=== PATIENT | female | born 1980 | race Caucasian/White ===

== ENCOUNTER 2017-11-01 10:02 | Emergency (ER) | payer OTHER ==
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
--- OUTSIDE RECORDS SUMMARY | 2017-11-01 10:05 | XMS REPORT | Clinical Summary ---
:1980 Author Organization [facility] Address [address] [place] [address] Care Team Providers Name Role Phone Solis Kwon MD Primary Care Provider Allergies Active Allergy Reactions Severity Noted Date Comments Mirtazapine Anxiety Low 01/06/2017 Trazodone Other (See Comments) Medium 01/05/2017 Causes Restless Legs Current Medications Prescription Sig. Disp. Refills Start Date End Date Status busPIRone (BUSPAR) TK 1 T PO TID 0 03/09/2016 Discontinued 5 MG tablet 7 busPIRone (BUSPAR) Take 15 mg by 0 12/27/2016 Discontinued 15 MG tablet mouth 2 (two) 7 times a day. gabapentin Take 300 mg by 0 12/27/2016 Discontinued (NEURONTIN) 300 mg mouth 3 (three) 7 capsule times a day. lithium 300 MG TAKE ONE CAPSULE 0 12/27/2016 Discontinued capsule EVERY MORNING 7 AND 2 CAPSULES AT BEDTIME melatonin 3 mg TAKE 2 CAPSUELS 0 12/27/2016 Discontinued tablet BY MOUTH AT 7 BEDTIME busPIRone (BUSPAR) Take 15 mg by Discontinued 15 MG tablet mouth 2 (two) 7 times a day. gabapentin Take 300 mg by Discontinued (NEURONTIN) 300 mg mouth 3 (three) 7 capsule times a day. lithium 300 MG Take 300 mg by Discontinued capsule mouth every 7 morning. lithium 300 MG Take 600 mg by Discontinued capsule mouth nightly. 7 melatonin 3 mg Take 6 mg by Discontinued tablet mouth nightly. 7 clonAZEPAM Take 2 mg by Discontinued (KlonoPIN) 2 MG mouth 2 (two) 7 tablet times a day. gabapentin Take 1 capsule 36 capsule 0 01/08/2017 (NEURONTIN) 300 mg (300 mg total) 7 capsuleIndications by mouth 3 : Off label for (three) times a anxiety and day for 12 days withdrawal Indications: Off label for anxiety and withdrawal. citalopram Take 1 tablet 12 tablet 0 01/08/2017 (CeleXA) 20 MG (20 mg total) by 7 tabletIndications: mouth daily for Major Depressive 12 days Disorder Indications: Major Depressive Disorder. nicotine Chew 1 each (2 100 each 0 01/08/2017 polacrilex mg total) every 7 (NICORETTE) 2 mg 2 (two) hours as gumIndications: needed for Smoking Cessation smoking cessation (CRAVINGS) for up to 30 days Indications: Smoking Cessation. Active Problems Problem Noted Date Malingering 01/08/2017 Severe benzodiazepine use disorder 01/05/2017 Encounters Date Type Specialty Care Team Description 07/27/2017 - Emergency Emergency Medicine Cherei Leon Suicidal ideation ( Primary Dx); 07/29/2017 MD Rosalinda Psychosis, unspecified psychosis type; Substance abuse 01/05/2017 - Hospital Encounter Psychiatry Boyareddigarrose, Suicidal ideation 01/08/2017 Eduard Schmid MD (Primary Dx) America Pulliam MD after 10/31/2016 Immunizations Name Dates Previously Given Next Due FLUCELVAX QUAD PF (0.5mL syringe) 01/06/2017 Social History Tobacco Use Types Packs/Day Years Used Date Current Some Day Smoker Cigarettes Tobacco Cessation: Ready to Quit: No; Counseling Given: Yes Alcohol Use Drinks/Week oz/Week Comments Yes Sex Assigned at Date Recorded Not on file Last Filed Vital Signs Vital Sign Reading Time Taken Blood Pressure 104/61 07/29/2017 1:34 PM CDT Pulse 78 07/29/2017 1:34 PM CDT Temperature 36.9 C (98.5 F) 07/29/2017 1:34 PM CDT Respiratory Rate 18 07/29/2017 1:34 PM CDT Oxygen Saturation 99% 07/29/2017 1:34 PM CDT Inhaled Oxygen Concentration - - Weight 73.6 kg (162 lb 4 oz) 01/05/2017 10:27 PM CDT Height 160 cm (5' 3") 07/27/2017 11:55 AM CDT Body Mass Index 28.74 01/05/2017 10:27 PM CDT Plan of Treatment Not on file Procedures Procedure Name Priority Date/Time Associated Comments Diagnosis ECG 12-LEAD STAT 07/27/2017 11:03 Results for this PM CDT procedure are in the results section. ESTIMATED GFR STAT 07/27/2017 1:03 Results for this PM CDT procedure are in the results section. SALICYLATE LEVEL STAT 07/27/2017 1:03 Results for this PM CDT procedure are in the results section. ACETAMINOPHEN LEVEL STAT 07/27/2017 1:03 Results for this PM CDT procedure are in the results section. HCG QUALITATIVE, SERUM STAT 07/27/2017 1:03 Results for this SCREEN PM CDT procedure are in the results section. URINE DRUGS OF ABUSE STAT 07/27/2017 1:03 Results for this SCREEN PM CDT procedure are in the results section. ALCOHOL LEVEL, BLOOD STAT 07/27/2017 1:03 Results for this PM CDT procedure are in the results section. URINALYSIS SCREEN AND STAT 07/27/2017 1:03 Results for this MICROSCOPY, WITH REFLEX PM CDT procedure are in TO CULTURE the results section. HC COMPLETE BLD COUNT STAT 07/27/2017 1:03 Results for this W/AUTO DIFF PM CDT procedure are in the results section. THYROID STIMULATING STAT 07/27/2017 1:03 Results for this HORMONE PM CDT procedure are in the results section. T4, FREE STAT 07/27/2017 1:03 Results for this PM CDT procedure are in the results section. COMPREHENSIVE METABOLIC STAT 07/27/2017 1:03 Results for this PANEL PM CDT procedure are in the results section. GRAM STAIN STAT 07/27/2017 1:03 Results for this PM CDT procedure are in the results section. URINE CULTURE STAT 07/27/2017 1:03 Results for this PM CDT procedure are in the results section. ECG ED PRELIMINARY Routine 07/27/2017 12:37 Results for this INTERPRETATION PM CDT procedure are in the results section. ECG 12-LEAD STAT 01/06/2017 9:10 Results for this AM CDT procedure are in the results section. ECG ED PRELIMINARY Routine 01/06/2017 7:48 Results for this INTERPRETATION AM CDT procedure are in the results section. LIPID PANEL STAT 01/05/2017 1:39 Results for this PM CDT procedure are in the results section. ESTIMATED GFR STAT 01/05/2017 1:39 Results for this PM CDT procedure are in the results section. SALICYLATE LEVEL STAT 01/05/2017 1:39 Results for this PM CDT procedure are in the results section. ACETAMINOPHEN LEVEL STAT 01/05/2017 1:39 Results for this PM CDT procedure are in the results section. URINE DRUGS OF ABUSE STAT 01/05/2017 1:39 Results for this SCREEN PM CDT procedure are in the results section. ALCOHOL LEVEL, BLOOD STAT 01/05/2017 1:39 Results for this PM CDT procedure are in the results section. THYROID STIMULATING STAT 01/05/2017 1:39 Results for this HORMONE PM CDT procedure are in the results section. T4, FREE STAT 01/05/2017 1:39 Results for this PM CDT procedure are in the results section. COMPREHENSIVE METABOLIC STAT 01/05/2017 1:39 Results for this PANEL PM CDT procedure are in the results section. HEMOGLOBIN A1C STAT 01/05/2017 1:38 Results for this PM CDT procedure are in the results section. HCG QUALITATIVE, SERUM STAT 01/05/2017 1:38 Results for this SCREEN PM CDT procedure are in the results section. URINALYSIS SCREEN AND STAT 01/05/2017 1:38 Results for this MICROSCOPY, WITH REFLEX PM CDT procedure are in TO CULTURE the results section. HC COMPLETE BLD COUNT STAT 01/05/2017 1:38 Results for this W/AUTO DIFF PM CDT procedure are in the results section. GRAM STAIN STAT 01/05/2017 1:36 Results for this PM CDT procedure are in the results section. URINE CULTURE STAT 01/05/2017 1:36 Results for this PM CDT procedure are in the results section. ECG 12-LEAD STAT 01/05/2017 1:00 Results for this PM CDT procedure are in the results section. after 10/31/2016 Results ECG 12 lead (07/27/2017 11:03 PM)Only the most recent of3 resultswithin the time period is included. Ventricular rate 64 [facility] Atrial rate 64 [facility] ID interval 172 [facility] QRSD interval 92 [facility] QT interval 426 [facility] QTC interval 439 [facility] P axis 1 48 [facility] QRS axis 1 64 [facility] T wave axis 23 [facility] EKG impression Normal sinus rhythm-In automated comparison with ECG of 2016 09:10,-ST no longer depressed in Inferior leads-Nonspecific T wave abnormality has replaced inverted T waves in Inferior leads-Nonspecific T wave abnormality no longer evident in [facility] Anterior leads-QT has shortened- Performing Organization Address City/State/Zipcode Phone Number [facility] [address] [place] [address] Urinalysis screen and microscopy, with reflex to culture (07/27/2017 1:03 PM) Only the most recent of2 resultswithin the time period is included. Specimen site Clean catch [facility] DEPARTMENT OF PATHOLOGY AND GENOMIC MEDICINE Color, UA Paulina [facility] DEPARTMENT OF PATHOLOGY AND GENOMIC MEDICINE Appearance, UA Clear [facility] DEPARTMENT OF PATHOLOGY AND GENOMIC MEDICINE Specific gravity, UA 1.024 1.001 - 1.030 [facility] DEPARTMENT OF PATHOLOGY AND GENOMIC MEDICINE pH, UA 5.0 5.0 - 9.0 [facility] DEPARTMENT OF PATHOLOGY AND GENOMIC MEDICINE Protein, UA Negative Negative [facility] DEPARTMENT OF PATHOLOGY AND GENOMIC MEDICINE Glucose, UA Negative Negative [facility] DEPARTMENT OF PATHOLOGY AND GENOMIC MEDICINE Ketones, UA Trace (A) Negative [facility] DEPARTMENT OF PATHOLOGY AND GENOMIC MEDICINE Bilirubin, UA Negative Negative [facility] DEPARTMENT OF PATHOLOGY AND GENOMIC MEDICINE Blood, UA Moderate (A) Negative [facility] DEPARTMENT OF PATHOLOGY AND GENOMIC MEDICINE Nitrite, UA Negative Negative [facility] DEPARTMENT OF PATHOLOGY AND GENOMIC MEDICINE Urobilinogen, UA <2.0 <2.0 E.U./dL [facility] DEPARTMENT OF PATHOLOGY AND GENOMIC MEDICINE Leukocyte esterase, UA Negative Negative [facility] DEPARTMENT OF PATHOLOGY AND GENOMIC MEDICINE Epithelial cells, UA 5 /HPF [facility] DEPARTMENT OF PATHOLOGY AND GENOMIC MEDICINE Round epithelial cells, UA <1 0 - 5 /HPF [facility] DEPARTMENT OF PATHOLOGY AND GENOMIC MEDICINE WBC, UA 2 0 - 4 /HPF [facility] DEPARTMENT OF PATHOLOGY AND GENOMIC MEDICINE RBC, UA 1 0 - 5 /HPF [facility] DEPARTMENT OF PATHOLOGY AND GENOMIC MEDICINE Bacteria, UA Moderate (A) None seen [facility] DE[facility]MENT OF PATHOLOGY AND GENOMIC MEDICINE Yeast, UA None seen [facility] DE[facility]MENT OF PATHOLOGY AND GENOMIC MEDICINE Yeast with pseudohyphae, UA None seen [facility] DE[facility]MENT OF PATHOLOGY AND GENOMIC MEDICINE Hyaline casts, UA 10-20 /LPF [facility] DEPARTMENT OF PATHOLOGY AND GENOMIC MEDICINE Specimen Urine Performing Organization Address City/State/Zipcode Phone Number [facility] DEPARTMENT OF PATHOLOGY [address] [place] [address] AND [employer] [facility] Estimated GFR (07/27/2017 1:03 PM)Only the most recent of2 resultswithin the time period is included. GFR Non Af Amer 70 mL/min/1.73 m2 [facility] DEPARTMENT OF PATHOLOGY AND GENOMIC MEDICINE GFR Af Amer 84 mL/min/1.73 m2 [facility] DEPARTMENT OF Comment: PATHOLOGY AND GENOMIC Chronic kidney disease: <60 mL/min/1.73m2 MEDICINE Kidney failure: <15 mL/min/1.73m2 The estimated GFR is calculated from the IDMS-traceable Modification of Diet in Renal Disease Equation. The accuracy of the calculation is poor when the creatinine is normal. Calculated values >90 mL/min/1.73m2 are not reported. This equation has not been validated in children (<18 years), women, the elderly (>70 years), or ethnic groups other than Caucasians and Americans. Specimen Plasma specimen Performing Organization Address City/State/Zipcode Phone Number [facility] DEPARTMENT OF PATHOLOGY [address] [place] [address] AND [employer] [facility] Urine drugs of abuse screen (07/27/2017 1:03 PM)Only the most recent of2 resultswithin the time period is included. Amphetamine screen, urine Positive (A) [facility] DE[facility]MENT OF PATHOLOGY AND GENOMIC MEDICINE Barbiturate screen, urine Negative [facility] DEPARTMENT OF PATHOLOGY AND GENOMIC MEDICINE Benzodiazepine screen, Positive (A) [facility] DEPARTMENT OF urine PATHOLOGY AND GENOMIC MEDICINE Cannabinoid screen, urine Negative [facility] DEPARTMENT OF PATHOLOGY AND GENOMIC MEDICINE Cocaine screen, urine Positive (A) [facility] DEPARTMENT OF PATHOLOGY AND GENOMIC MEDICINE Methadone metabolite Negative [facility] DEPARTMENT OF (EDDP), urine PATHOLOGY AND GENOMIC MEDICINE Opiates screen, urine Negative [facility] DEPARTMENT OF PATHOLOGY AND GENOMIC MEDICINE Phencyclidine screen, urine Negative [facility] DEPARTMENT OF PATHOLOGY AND GENOMIC MEDICINE Tricyclic screen, urine Negative [facility] DEPARTMENT OF Comment: PATHOLOGY AND GENOMIC Drug screen minimum concentration of detectability MEDICINE Lytewceihxvz5427 ng/mL Barbiturates 200 ng/mL Shptmfcppfprurw668 ng/mL Xunejmw070 ng/mL Ljtrdctel738 ng/mL Incenxh942 ng/mL Phencyclidine 25 ng/mL Ginzpbpyprra37 ng/mL Mpxomfhnqd6415 ng/mL Negative test results indicates presumptive evidence of lack of clinically significant drug concentration in this urine specimen. Positive test results are presumptive evidence of clinically significant drug concentration in this urine specimen. Testing performed for medical purposes only. Specimen Urine Performing Organization Address City/State/Zipcode Phone Number [facility] DEPARTMENT OF PATHOLOGY [address] [place] [address] AND GENOMIC MEDICINE Gram stain (07/27/2017 1:03 PM)Only the most recent of2 resultswithin the time period is included. Gram stain result No WBC's [facility] DEPARTMENT OF PATHOLOGY Few Gram positive cocci in pairs AND GENOMIC MEDICINE Comment: Specimen Information Specimen Source: Urine Specimen Site: Clean catch Specimen Urine Performing Organization Address City/[facility]/Zipcode Phone Number [facility] DEPARTMENT OF PATHOLOGY AND [address] [place] [address] GENOMIC MEDICINE CBC with platelet and differential (07/27/2017 1:03 PM)Only the most recent of2 resultswithin the time period is included. WBC 9.9 4.5 - 11.0 k/uL [facility] DEPARTMENT OF PATHOLOGY AND GENOMIC MEDICINE RBC 4.44 4.20 - 5.50 m/uL [facility] DEPARTMENT OF PATHOLOGY AND GENOMIC MEDICINE HGB 14.3 12.0 - 16.0 g/dL [facility] DEPARTMENT OF PATHOLOGY AND GENOMIC MEDICINE HCT 42.1 37.0 - 47.0 % [facility] DEPARTMENT OF PATHOLOGY AND GENOMIC MEDICINE MCV 94.8 82.0 - 100.0 fL [facility] DEPARTMENT OF PATHOLOGY AND GENOMIC MEDICINE MCH 32.2 27.0 - 34.0 pg [facility] DEPARTMENT OF PATHOLOGY AND GENOMIC MEDICINE MCHC 34.0 31.0 - 37.0 g/dL [facility] DEPARTMENT OF PATHOLOGY AND GENOMIC MEDICINE RDW - SD 41.7 37.0 - 55.0 fL [facility] DEPARTMENT OF PATHOLOGY AND GENOMIC MEDICINE MPV 9.3 6.9 - 11.0 fL [facility] DEPARTMENT OF PATHOLOGY AND GENOMIC MEDICINE Platelet count 249 150 - 400 K/uL [facility] DEPARTMENT OF PATHOLOGY AND GENOMIC MEDICINE Nucleated RBC 0.00 /100 WBC [facility] DEPARTMENT OF PATHOLOGY AND GENOMIC MEDICINE Neutrophils 68.1 39.0 - 69.0 % [facility] DEPARTMENT OF PATHOLOGY AND GENOMIC MEDICINE Lymphocytes 22.3 (L) 25.0 - 45.0 % [facility] DEPARTMENT OF PATHOLOGY AND GENOMIC MEDICINE Monocytes 7.9 0.0 - 10.0 % [facility] DEPARTMENT OF PATHOLOGY AND GENOMIC MEDICINE Eosinophils 0.8 0.0 - 5.0 % [facility] DEPARTMENT OF PATHOLOGY AND GENOMIC MEDICINE Basophils 0.6 0.0 - 1.0 % [facility] DEPARTMENT OF PATHOLOGY AND GENOMIC MEDICINE Immature granulocytes 0.3 0.0 - 1.0 % [facility] DEPARTMENT OF PATHOLOGY AND GENOMIC MEDICINE Specimen Blood Performing Organization Address City/[facility] Phone Number [facility] DEPARTMENT OF PATHOLOGY [address] [place] [address] AND [facility] Urine culture (07/27/2017 1:03 PM)Only the most recent of2 resultswithin the time period is included. Urine culture isolate Mixed Gram positive deana [facility] DEPARTMENT OF 10-4 cfu/ml PATHOLOGY AND GENOMIC (A) MEDICINE Comment: Specimen Information Specimen Source: Urine Specimen Site: Clean catch Specimen Urine Performing Organization Address [facility] Phone Number [facility] DEPARTMENT OF PATHOLOGY AND [address] [place] [id number] [place] [address] hCG qualitative, serum screen (07/27/2017 1:03 PM)Only the most recent of2 resultswithin the time period is included. hCG qualitative, serum NegativeComment: [facility] DEPARTMENT OF Sensitivity of HCG test: 25 PATHOLOGY AND GENOMIC mIU/mL MEDICINE Specimen Blood Performing Organization Address [facility] Phone Number [facility] DEPARTMENT OF PATHOLOGY [address] [place] [address] AND [facility] Thyroid stimulating hormone (07/27/2017 1:03 PM)Only the most recent of2 resultswithin the time period is included. TSH 0.87 0.27 - 4.20 uIU/mL [facility] DEPARTMENT OF PATHOLOGY AND GENOMIC MEDICINE Specimen Plasma specimen Performing Organization Address City/[facility] Phone Number [facility] DEPARTMENT OF PATHOLOGY [address] [place] [address] AND [facility] T4, free (07/27/2017 1:03 PM)Only the most recent of2 resultswithin the time period is included. T4, free 1.4 0.9 - 1.7 ng/dL [facility] DEPARTMENT OF PATHOLOGY AND GENOMIC MEDICINE Specimen Plasma specimen Performing Organization Address City/[facility] Phone Number [facility] DEPARTMENT OF PATHOLOGY [address] [place] [address] AND [facility] Alcohol level, blood (07/27/2017 1:03 PM)Only the most recent of2 resultswithin the time period is included. Alcohol None Detected mg/dL [facility] DEPARTMENT OF PATHOLOGY Comment: AND [facility] MEDICINE Normal None Detected Legal Intoxication in [place]80 mg/dL (0.08%) - Whole Blood Toxic Sqamyvctvpoal318 mg/dL (0.2%) Potentially Pmbpr421 - 500 mg/dL (0.35 - 0.5%) Alcohol percent None Detected % [facility] DEPARTMENT OF PATHOLOGY AND GENOMIC MEDICINE Specimen Plasma specimen Performing Organization Address [facility] Phone Number [facility] DEPARTMENT OF PATHOLOGY [address] [place] [address] AND [facility] Acetaminophen level (07/27/2017 1:03 PM)Only the most recent of2 resultswithin the time period is included. Acetaminophen level <8.3 10.0 - 30.0 ug/mL [facility] DEPARTMENT OF Comment: PATHOLOGY AND GENOMIC Therapeutic 10-30 ug/mL MEDICINE Possible Toxicity 150-200 ug/mL Probable Toxicity >200 ug/mL Specimen Plasma specimen Performing Organization Address [facility] Phone Number [facility] DEPARTMENT OF PATHOLOGY [address] [place] [address] AND [facility] Salicylate level (07/27/2017 1:03 PM)Only the most recent of2 resultswithin the time period is included. Salicylate <0.4 (L) 3.0 - 30.0 mg/dL [facility] DEPARTMENT OF PATHOLOGY AND GENOMIC MEDICINE Specimen Plasma specimen Performing Organization Address City/[facility] Phone Number [facility] DEPARTMENT OF PATHOLOGY [address] [place] [address] AND [facility] Comprehensive metabolic panel (07/27/2017 1:03 PM)Only the most recent of2 resultswithin the time period is included. Sodium 136 135 - 148 mEq/L [facility] DEPARTMENT OF PATHOLOGY AND GENOMIC MEDICINE Potassium 3.8 3.5 - 5.0 mEq/L [facility] DEPARTMENT OF PATHOLOGY AND GENOMIC MEDICINE Chloride 99 98 - 112 mEq/L [facility] DEPARTMENT OF PATHOLOGY AND GENOMIC MEDICINE CO2 23 (L) 24 - 31 mEq/L [facility] DEPARTMENT OF PATHOLOGY AND GENOMIC MEDICINE Anion gap 14@ANIO 7 - 15 mEq/L [facility] DEPARTMENT OF PATHOLOGY AND GENOMIC MEDICINE BUN 22 (H) 6 - 20 mg/dL [facility] DEPARTMENT OF PATHOLOGY AND GENOMIC MEDICINE Creatinine 0.9 0.5 - 0.9 mg/dL [facility] DEPARTMENT OF PATHOLOGY AND GENOMIC MEDICINE Glucose 66 65 - 99 mg/dL [facility] DEPARTMENT OF PATHOLOGY AND GENOMIC MEDICINE Calcium 9.1 8.3 - 10.2 mg/dL [facility] DEPARTMENT OF PATHOLOGY AND GENOMIC MEDICINE Protein 7.4 6.3 - 8.3 g/dL [facility] DEPARTMENT OF PATHOLOGY AND GENOMIC MEDICINE Albumin 4.2 3.5 - 5.0 g/dL [facility] DEPARTMENT OF PATHOLOGY AND GENOMIC MEDICINE A/G ratio 1.3 0.7 - 3.8 [facility] DEPARTMENT OF PATHOLOGY AND GENOMIC MEDICINE Alkaline phosphatase 52 35 - 104 U/L [facility] DEPARTMENT OF PATHOLOGY AND GENOMIC MEDICINE AST 47 (H) 10 - 35 U/L [facility] DEPARTMENT OF PATHOLOGY AND GENOMIC MEDICINE ALT 101 (H) 5 - 50 U/L [facility] DEPARTMENT OF PATHOLOGY AND GENOMIC MEDICINE Total bilirubin 0.9 0.2 - 1.2 mg/dL [facility] DEPARTMENT OF PATHOLOGY AND GENOMIC MEDICINE Specimen Plasma specimen Performing Organization Address City/State/Zipcode Phone Number [facility] DEPARTMENT OF PATHOLOGY [address] [place] [address] AND GENOMIC MEDICINE ECG ED Preliminary Interpretation - NOT AN ORDER (07/27/2017 12:37 PM)Only the most recent of2 resultswithin the time period is included. Narrative Performed At Cherie Leon MD 07/27/2017 11:07 PM ECG ED Preliminary Interpretation - Not an Order Performed by: CHERIE LEON Authorized by: CHERIE LEON ECG reviewed by ED Physician in the absence of a disability aide: yes Interpretation: Interpretation: non-specific Rate: ECG rate:64 ECG rate assessment: normal Rhythm: Rhythm: sinus rhythm Ectopy: Ectopy: none QRS: QRS axis:Normal QRS intervals:Normal Conduction: Conduction: normal ST segments: ST segments:Normal T waves: T waves: inverted Inverted:III Lipid panel (01/05/2017 1:39 PM) Cholesterol 197 <200 mg/dL [facility] DEPARTMENT OF PATHOLOGY AND GENOMIC MEDICINE Triglycerides 88 <150 mg/dL [facility] DEPARTMENT OF PATHOLOGY AND GENOMIC MEDICINE HDL cholesterol 87 >40 mg/dL [facility] DEPARTMENT OF PATHOLOGY AND GENOMIC MEDICINE LDL cholesterol 95Comment: Result <100 mg/dL [facility] DEPARTMENT OF obtained by direct LDL PATHOLOGY AND GENOMIC measurement MEDICINE Lipid panel interpretation [facility] DEPARTMENT OF Comment: PATHOLOGY AND GENOMIC Total Cholesterol (mg/dL) MEDICINE <200 Desirable [id number]-rcoi >=240High Triglycerides (mg/dL) <150 Normal [phone]-plpx 200-499High >=500Very high HDL Cholesterol (mg/dL) <40Low (male) <40Low (female) LDL Cholesterol (mg/dL) <100 Optimal 100-129Near or above optimal [phone]-cwiv 160-189High >=190Very high Risk Catergories that modify LDL goals. Risk CatergoriesLDL goal (mg/dL) CHD and CHD risk equivalent<100 (10-year risk >20%) Multiple (2+) risk factors <130 (10-year risk=<20%) 0-1 risk factors <160 (<10-year risk) Defining levels of lipids in metabolic syndrome Triglycerides>=150 mg/dL HDL Cholesterol Men<40 mg/dL Women<40 mg/dL Non-HDL cholesterol is a second target for therapy in persons with high triglycerides (>=200 mg/dL) Specimen Plasma specimen Performing Organization Address City/State/[facility] Phone Number [facility] DEPARTMENT OF PATHOLOGY AND [address] [place], [place] [id number] [facility] Hemoglobin A1c (01/05/2017 1:38 PM) Hemoglobin A1C 4.8 4.0 - 5.6 % [facility] DEPARTMENT OF PATHOLOGY Comment: AND [employer] MEDICINE HbA1c cutoffs for diagnosing diabetes: 4.0% - 5.6%=normal 5.7% - 6.4%=increased risk for diabetes (prediabetes) >=6.5%=diabetes Goals for glycemic control (ADA 2016) < 7.0%Target for non adults with diabetes. More or less stringent targets may be appropriate for individual patients. <7.5% Target for Children and adolescents with type 1 diabetes. Performing Organization Address City/State/Zipcode Phone Number [facility] DEPARTMENT OF PATHOLOGY AND [address] [place], [place] [id number] [employer] [facility] after 10/31/2016 Insurance Payer Benefit Plan / Group Subscriber ID Type Phone Address MEDICARE MEDICARE PART A AND B xxxxxxxxxx Medicare [place], [place] MEDICARE MEDICARE PART A xxxxxxxxxx Medicare [place], [place]
--- OUTSIDE RECORDS SUMMARY | 2017-11-01 10:05 | XMS REPORT | Clinical Summary ---
:1980 Author Organization [email or web address] Address [address] [place] [address] Phone Care Team Providers Name Role Phone Unavailable Primary Care Provider Unavailable Allergies Active Allergy Reactions Severity Noted Date Comments Trazodone Other (See Comments) Medium 01/05/2017 Causes Restless Legs Mirtazapine Anxiety Low 01/06/2017 Current Medications Prescription Sig. Disp. Refills Start Date End Date Status clonazePAM (KLONOPIN) 1 Take 1 mg by mouth Active MG tablet 2 (two) times daily as needed for Anxiety. citalopram (CELEXA) 40 MG Take 40 mg by mouth Active tablet daily. HYDROcodone-acetaminophen Take 1 tablet by Active (NORCO 10-325) 10-325 mg mouth every 6 (six) per tablet hours as needed for Pain. benztropine (COGENTIN) 2 Take 1 mg by mouth 09/30/2017 Active MG tablet daily . naltrexone (DEPADE) 50 mg Take 1 tablet by 09/30/2017 Active tablet mouth daily . Active Problems Not on file Encounters Date Type Specialty Care Team Description 10/15/2017 - Emergency Emergency Medicine Jessica Jordan, Suicidal ideation 10/16/2017 (Primary Dx);History of suicide attempt;History of suicidal ideation;History of anxiety after 10/31/2016 Social History Tobacco Use Types Packs/Day Years Used Date Current Some Day Smoker Cigarettes 0.5 Smokeless Tobacco: Never Used Tobacco Cessation: Ready to Quit: No; Counseling Given: Yes Alcohol Use Drinks/Week oz/Week Comments Yes EVERY ONCE IN A WHILE Sex Assigned at Date Recorded Not on file Last Filed Vital Signs Vital Sign Reading Time Taken Blood Pressure 120/78 10/16/2017 3:12 AM CDT Pulse 80 10/16/2017 3:12 AM CDT Temperature 36.7 C (98 F) 10/16/2017 3:12 AM CDT Respiratory Rate 16 10/16/2017 3:12 AM CDT Oxygen Saturation 99% 10/16/2017 3:12 AM CDT Inhaled Oxygen Concentration - - Weight 68 kg (150 lb) 10/15/2017 3:44 AM CDT Height 162.6 cm (5' 4") 10/15/2017 3:44 AM CDT Body Mass Index 25.75 10/15/2017 3:44 AM CDT Plan of Treatment Not on file Results EKG-SCANNED (10/17/2017 3:31 PM)Rapid drug screen, urine (10/15/2017 4:29 AM) Component Value Ref Range Barbiturate Screen Negative Negative Benzodiazepine Screen Positive (A) Negative Cocaine (Metab.) Screen Positive (A) Negative Methadone Screen Negative Negative Opiate Screen Positive (A) Negative Cannabinoid Screen Negative Negative Amph/Methamph Screen Positive (A) Negative Phencyclidine Screen Negative Negative Specimen Performing Laboratory Urine - Urine, Voided [facility] [address] [place] [address] Narrative DRUGCUTOFF CONC. Cocaine 300 ng/mL Bzxpoewmvrr97 ng/mL Dxylptloqycqqe724 ng/mL Barbiturate 200 ng/mL Itfcohoksepxy10 ng/mL Strnui092 ng/mL Methadone 300 ng/mL Amphetamine/ 1000 ng/mL Methamphetamine This assay provides an unconfirmed qualitative test result for the clinical management of patients in emergency situations. Chain of custody not maintained. Some [id number] medications, as well as adulterants, may cause inaccurate results. Clinical correlation should be applied. A more comprehensive drug screen or confirmation of a detected drug may be performed upon request. Urinalysis w/ Microscopic (10/15/2017 4:29 AM) Component Value Ref Range Color, UA Yellow Clarity, UA Clear Specific [place], UA >=1.030 1.001 - 1.035 pH, UA 5.5 5.0 - 8.0 Protein, UA Trace (A) Negative Glucose, UA Negative Negative Ketones, UA 15 mg/dL (A) Negative Bilirubin, UA Positive (A) Negative Blood, UA Negative Negative Nitrite, UA Negative Negative Leukocytes, UA Negative Negative Urobilinogen, UA 0.2 0.2 - 1.0 mg/dL Bacteria, UA Occasional RBC, UA <5 /HPF WBC, UA <5 /HPF SQUAMOUS EPITHELIAL <5 /HPF Specimen Source Specimen Performing Laboratory Urine - Urine, Voided [facility] [address] [place], [place] [address] CBC with platelet count + automated diff (10/15/2017 4:28 AM) Component Value Ref Range WBC 8.1 4.0 - 10.0 K/L RBC 4.40 4.00 - 5.00 M/L Hemoglobin 14.5 12.0 - 15.0 GM/DL Hematocrit 42.4 36.0 - 45.0 % MCV 96.4 82.0 - 99.0 fL MCH 32.9 27.0 - 33.0 pg MCHC 34.1 32.0 - 36.0 GM/DL RDW 13.7 10.3 - 14.2 % Platelets 266 150 - 430 K/CU MM MPV 7.8 6.5 - 10.5 fL nRBC 0 0 - 0 /100 WBC % Neutros 80 % % Lymphs 15 % % Monos 4 % % Eos 1 % % Baso 1 % # Neutros 6.50 1.80 - 8.00 K/L # Lymphs 1.20 (L) 1.48 - 4.50 K/L # Monos 0.40 0.00 - 1.30 K/L # Eos 0.10 0.00 - 0.50 K/L # Baso 0.00 0.00 - 0.20 K/L Specimen Performing Laboratory Blood - Arm, [facility] [address] [place] [phone] Troponin I (10/15/2017 4:28 AM) Component Value Ref Range Troponin I <0.03 0.00 - 0.15 ng/mL Specimen Performing Laboratory Blood - Arm, [facility] [address] [place] [id number] Narrative Troponin I (TnI) levels must be interpreted in the context of the presenting symptoms and the clinical findings. Elevated TnI levels indicate myocardial damage, but are not specific for ischemic heart disease. Elevated TnI levels are seen in patients with other cardiac conditions (including myocarditis and congestive heart failure), and slight TnI elevations occur in patients with other conditions, including sepsis, renal failure, acidosis, acute neurological disease, and persistent tachyarrhythmia. CBC with platelet count + automated diff (10/15/2017 4:28 AM) Specimen Performing Laboratory Blood Narrative The following orders were created for panel order CBC with platelet count + automated diff. Procedure Abnormality Status --------- ------ CBC with platelet count ...[[id number]]AbnormalFinal result Please view results for these tests on the individual orders. Ethanol (10/15/2017 4:28 AM) Component Value Ref Range Ethanol Lvl 65 (H) <=10 mg/dL Specimen Performing Laboratory Blood - Arm, [facility] [address] [place] [phone] Acetaminophen level (10/15/2017 4:28 AM) Component Value Ref Range Acetaminophen Level <6.0 (L) 10.0 - 30.0 ug/mL Specimen Performing Laboratory Blood - Arm, [facility] [address] [place] [phone] Salicylate level (10/15/2017 4:28 AM) Component Value Ref Range Salicylate Lvl <0.2 (L) 20.0 - 30.0 mg/dL Specimen Performing Laboratory Blood - Arm, [facility] [address] [place] [id number] Hepatic function panel (10/15/2017 4:28 AM) Component Value Ref Range Protein, Total 7.3 6.0 - 8.5 gm/dL Albumin 4.3 3.5 - 5.0 g/dL Total Bilirubin 0.6 0.1 - 1.2 mg/dL Bilirubin, Direct 0.3 0.0 - 0.4 mg/dL Alkaline Phosphatase 50 30 - 115 U/L AST 47 (H) 5 - 40 U/L ALT 43 5 - 50 U/L Specimen Performing Laboratory Blood - Arm, [facility] [address] [place] [phone] Basic Metabolic Panel (10/15/2017 4:28 AM) Component Value Ref Range Sodium 137 135 - 148 meq/L Potassium 3.6 3.6 - 5.5 meq/L Chloride 104 98 - 106 meq/L CO2 21 20 - 29 meq/L BUN 13 10 - 26 mg/dL Creatinine 0.84 0.50 - 1.20 mg/dL Glucose 85 70 - 110 mg/dL Calcium 9.5 8.5 - 10.5 mg/dL EGFR 75Comment: ESTIMATED GFR IS NOT ACCURATE mL/min/1.73 sq m CREATININE CLEARANCE IN PREDICTING GLOMERULAR FILTRATION RATE. ESTIMATED GFR IS NOT APPLICABLE FOR DIALYSIS PATIENTS. Specimen Performing Laboratory Blood - Arm, Right [facility] [address] [place] [address] after 10/31/2016
--- OUTSIDE RECORDS SUMMARY | 2017-11-01 10:14 | XMS REPORT | Continuity of Care Document ---
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 Medical Substitution Center Allowed clonidine 0.2 mg 0.2 mg, 1 tab, PO No Longer [place] 08/27[facility] [place] oral tablet Route: PO, Active 2011 Medical Drug form: Center TAB, ONCE, Start date: 08/27/11 20:09:00, Stop date: 08/27/11 20:09:00 Bactroban 2% 1 appl, Route: NASAL No Longer [facility] nasal ointment NASAL, BID, Active 2010 Medical w/applicator Start date: [place] 02/02/11 9:00:00, Duration: 30 day, Stop date: 03/03/11 17:00:00 dicloxacillin 250 mg, Route: PO No Longer [place] PO, Drug form: Active 2010 Medical CAP, Q6H, Center Start date: 02/02/11 0:00:00, Duration: 30 day, Stop date: 03/03/11 18:00:00 dicloxacillin 250 mg, 1 cap, PO Active [facility] [place] 250 mg oral PO, Q6H, [address] [facility] capsule cap, Center Substitution Allowed, CAP Bactroban 2% 1 appl, NASAL, NASAL Active [facility] nasal ointment BID, 10 ea, 2010 Medical w/applicator Substitution Center Allowed, OINT hydrocortisone 1 appl, TOP, TOP Active [facility] topical 1% cream BID, 30 gm, 2010 Medical Substitution Center Allowed, apply a thin layer to the affected areaapply a thin layer to the affected area Sodium Chloride 1,000 mL, IV No Longer Hayes [facility] 0.9% (Bolus) IV Rate: 1,[address] [facility] 1,000 mL ml/hr, Infuse Center over: 1 hr, Route: IV, Total Volume: 1,000, Bolus Dose, Priority: STAT, Start date: 02/01/11 16:45:00, Duration: 1 doses or times, Stop date: 02/01/11 17:44:00 Neurontin Substitution Active [facility] Allowed 2010 [facility] Celexa Substitution Active 02/01[facility] Allowed [address] [place] [address] Allergies, Adverse Reactions, Alerts Substance Category Reaction Severity Reaction Status Date Comments Source type Reported NKDA Assertion Drug Active allergy [place] Immunizations Immunization Date Given Site Status Last Updated Comments Source TDap (Tetanus 07/28/2016 completed [place] Toxoid, [facility] Diphtheria Toxoid And Acellular Pertussis, Absorbed) Influenza 12/29/2015 completed [facility] <Unspecified[facility] PPD 11/29/2015 completed [facility] [place] Tdap Tetanus, 11/24/2013 completed [place] diphtheria, [facility] acellular pertussis Vaccine Tdap Tetanus, 10/15/2013 completed [place] diphtheria, [facility] acellular pertussis Vaccine Results Order Name Results Value Reference Date Interpretation Comments Source Range CHEM PANEL eGFR 94 03/02 Result Comment: The eGFR is calculated using the CKD-EPI formula. In most young, healthy individuals the eGFR will be >90 mL/ min/1.73m2. The eGFR declines with age. An eGFR of 60-89 may be normal in mL/min/1. some populations, particularly the elderly, for whom the CKD-EPI formula has not been extensively validated. Use of the eGFR is not recommended in the following populations: [place] [id number] Individuals with unstable creatinine concentrations, including patients and those with serious co-morbid conditions. Patients with extremes in muscle mass or diet. The data above are obtained from the National Kidney Disease Education Program (NKDEP) which additionally recommends that when the eGFR is used in patients with extremes of body mass index for purposes of drug dosing, the eGFR should be multiplied by the estimated BMI. CHEM PANEL Calcium Lvl 8.5 mg/dL 8.5 - 10.5 03/02 [facility] CHEM PANEL Chloride Lvl 103 meq/L 95 - 109 03/02 [facility] CHEM PANEL CO2 23 meq/L 24 - 32 03/02 [facility] CHEM PANEL Creatinine 0.80 mg/dL 0.50 - 03/02 MH Lvl 1.40 [facility] CHEM PANEL BUN 13 mg/dL 7 - 03/02 [facility] CHEM PANEL Potassium 4.0 meq/L 3.5 - 5.1 03/02 MH Lvl /2016 [facility] CHEM PANEL Sodium Lvl 136 meq/L 135 - 145 03/02 [facility] CHEM PANEL Glucose Lvl 86 mg/dL 70 - 99 03/02 [facility] CHEM PANEL AGAP 14.0 meq/L 10.0 - 03/02 MH 20.0 [facility] HEMATOLOGY RBC 4.45 M/CMM 4.20 - 03/02 MH 5.40 [facility] HEMATOLOGY WBC 5.9 K/CMM 3.7 - 10.4 03/02 [facility] HEMATOLOGY Hct 42.4 % 36.0 - 03/02 MH 48.0 [facility] HEMATOLOGY Hgb 14.2 g/dL 12.0 - 03/02 MH 16.0 [facility] HEMATOLOGY RDW 13.5 % 11.5 - 03/02 MH 14.5 [facility] HEMATOLOGY Platelet 262 K/CMM 133 - 450 03/02 [facility] HEMATOLOGY MCH 32.0 pg 27.0 - 03/02 MH 31.0 [facility] HEMATOLOGY MPV 8.0 fL 7.4 - 10.4 03/02 [facility] HEMATOLOGY MCV 95.3 fL 80.0 - 03/02 MH 98.0 [facility] MCHC 33.6 g/dL 32.0 - 03/02 MH 36.0 /2017 [facility] HEMATOLOGY Lymphocytes 2.5 K/CMM 1.0 - 5.5 03/02 MH # /2017 [facility] HEMATOLOGY Eosinophils 0.3 K/CMM 0.0 - 0.5 03/02 MH # /2017 [facility] HEMATOLOGY Monocytes # 0.4 K/CMM 0.0 - 0.8 03/02 [facility] HEMATOLOGY Basophils # 0.1 K/CMM 0.0 - 0.2 03/02 /2016 [facility] HEMATOLOGY Eosinophils 4.3 % 0.0 - 4.0 03/02 /2016 [facility] HEMATOLOGY Monocytes 6.8 % 2.0 - 12.0 03/02 /2016 [facility] HEMATOLOGY Segs 45.5 % 45.0 - 03/02 MH 75.0 /2017 [facility] HEMATOLOGY Lymphocytes 41.7 % 20.0 - 03/02 40.0 /2017 [facility] HEMATOLOGY Segs-Bands # 2.7 K/CMM 1.5 - 8.1 03/02 [facility] HEMATOLOGY Basophils 1.7 % 0.0 - 1.0 03/02 [facility] URINE AND UA <=1.0 0.1 - 1.0 03/02 [facility] Urobilinogen mg/dL /2016 [facility] URINE AND UA Leuk Est Negative Negative 03/02 STOOL [facility] (03/02/17 4:28 PM) URINE AND UA Nitrite Negative Negative 03/02 STOOL [facility] (03/02/17 4:28 PM) URINE AND UA Mucus Few /LPF None Seen 03/02 [facility] /LPF [facility] URINE AND UA Bacteria Few /HPF None Seen 03/02 [facility] /HPF /2016 [facility] URINE AND UA WBC 1 /HPF 0 - 5 03/02 STOOL [facility] URINE AND UA Sq Epi Moderate Few /LPF 03/02 [facility] /LPF [facility] URINE AND UA Bili Negative Negative 03/02 STOOL [facility] *NA* (03/02/17 4:28 PM) URINE AND UA Blood Negative Negative 03/02 STOOL [facility] (03/02/17 4:28 PM) URINE AND UA Ketones Negative Negative 03/02 [facility] mg/dL mg/dL [facility] URINE AND UA Turbidity Clear Clear 03/02 STOOL [facility] (03/02/17 4:28 PM) URINE AND UA Spec Grav 1.019 <=1.030 03/02 [facility] URINE AND UA pH 6.0 5.0 - 8.0 03/02 [facility] URINE AND UA Glucose Negative Negative 03/02 [facility] mg/dL mg/dL [facility] URINE AND UA Protein Negative Negative 03/02 [facility] mg/dL mg/dL [facility] URINE AND UA Color Light Yellow Yellow 03/02 [facility] *NA* (03/02/17 4:28 PM) URINE CHEM U Preg Negative Negative 03/02 [facility] (03/02/17 4:28 PM) ED ED CT ABDOMEN PELVIS WITH CONTRAST (ED PROTOCOL): 03/02 Abdomen/Pe Abdomen/Pelv - [facility] lvis IV is IV contrast contrast only CT only CT HISTORY: Right lower quadrant pain for one day. Read by: Nahun Garcia MD Dictated Date/time: 03/02/17 18:20 Electronically Signed by: Nahun Garcia MD 03/02/17 18:24 FINAL REPORT TECHNIQUE: Multislice acquisition of the abdomen and pelvis was done with IV contrast. Oral contrast was not administered. Sagittal and coronal reconstructions were also done. FINDINGS: The appendix is normal. There is no significant diverticular disease. The gastrointestinal tract is otherwise within normal limits. The liver, gallbladder, spleen, pancreas, kidneys and adrenal glands show no significant abnormalities. The uterus and adnexal regions are unremarkable. There is a small amount of fluid in the cul-de-sac. There is no other intraperitoneal free fluid or significant retroperitoneal abnormality. There are no acute osseous abnormalities. IMPRESSION: No acute CT abnormalities in the abdomen or pelvis. SL DLAWRENCE-PC Pelvis w Pelvis w US PELVIS 03/02 - Transvag Transvag - [facility] and Pelvis Pelvis Doppler US Doppler US History: Right pelvic pain Read by: Jessie Goodson MD Dictated Date/time: 03/02/17 17:29 Electronically Signed by: Jessie Goodson MD 03/02/17 17:40 FINAL REPORT Comments: Transabdominal pelvic ultrasound performed. Transvaginal pelvic ultrasound also performed for better visualization of pelvic structures. Uterus measures 7.5 x 3.7 x 5.6 cm. Endometrium is within normal limits measuring 16 mm No uterine fibroids. Right ovary measures 3 x 2.4 x 2.9 cm. A 2.8 x 2.6 cm complex cyst in the right ovary is likely a hemorrhagic cyst. Confirmation can be obtained by a 4-6 follow-up ultrasound. Left ovary is normal in size and appearance measuring 2.8 x 1.6 x 1.5 cm. Impression: A 2.8 x 2.6 cm complex cyst in the right ovary is likely a hemorrhagic cyst. Confirmation can be obtained by a 4-6 follow-up ultrasound. DRUG UDS Note See Note 10/23 [facility] (10/23/16 10:06 AM) DRUG U Amph Scr Positive Negative 10/23 [facility] *ABN* (10/23/16 10:06 AM) DRUG U Jihan Scr Negative Negative 10/23 [facility] *NA* (10/23/16 10:06 AM) DRUG U Benzodia Negative Negative 10/23 SCREEN Scr [facility] *NA* (10/23/16 10:06 AM) DRUG U Cocaine Negative Negative 10/23 SCREEN Scr [facility] *NA* (10/23/16 10:06 AM) DRUG U Cannab Scr Negative Negative 10/23 [facility] *NA* (10/23/16 10:06 AM) DRUG U Opiate Scr Positive Negative 10/23 [facility] *ABN* (10/23/16 10:06 AM) DRUG U Phencyc Negative Negative 10/23 SCREEN Scr [facility] *NA* (10/23/16 10:06 AM) URINE AND UA Color Paulina 10/23 [facility] URINE AND UA Hyal Cast 1 /LPF 0 - 2 10/23 [facility] URINE AND UA Spec Grav 1.025 <=1.030 10/23 [facility] URINE AND UA Protein Negative Negative 10/23 [facility] mg/dL mg/dL [facility] URINE AND UA pH 5.0 5.0 - 8.0 10/23 [facility] URINE AND UA Ketones Negative Negative 10/23 [facility] mg/dL mg/dL [facility] URINE AND UA Glucose Negative Negative 10/23 [facility] mg/dL mg/dL [facility] URINE AND UA Turbidity Slight Clear 10/23 [facility] *ABN* (10/23/16 10:00 AM) URINE AND UA Nitrite Negative Negative 10/23 [facility] (10/23/16 10:00 AM) URINE AND UA Leuk Est Negative Negative 10/23 STOOL [facility] (10/23/16 10:00 AM) URINE AND UA 2.0 mg/dL 0.1 - 1.0 10/23 [facility] Urobilinogen /2016 [facility] URINE AND UA RBC 1 /HPF 0 - 2 10/23 [facility] URINE AND UA Mucus Few /LPF None Seen 10/23 [facility] /LPF [facility] URINE AND UA WBC 2 /HPF 0 - 5 10/23 [facility] URINE AND UA Sq Epi Many /LPF Few /LPF 10/23 [facility] URINE AND UA Bacteria Occasional None Seen 10/23 [facility] /HPF /HPF [facility] URINE AND UA Bili Negative Negative 10/23 [facility] *NA* (10/23/16 10:00 AM) URINE AND UA Blood Negative Negative 10/23 [facility] (10/23/16 10:00 AM) URINE CHEM U Preg Negative Negative 10/23 [facility] (10/23/16 10:00 AM) CHEM PANEL eGFR 100 10/23 Result Comment: The eGFR is calculated using the CKD-EPI formula. In most young, healthy individuals the eGFR will be >90 mL/ min/1.73m2. The eGFR declines with age. An eGFR of 60-89 may be normal in mL/min/1. some populations, particularly the elderly, for whom the CKD-EPI formula has not been extensively validated. Use of the eGFR is not recommended in the following populations: [facility] 3m2 Individuals with unstable creatinine concentrations, including patients and those with serious co-morbid conditions. Patients with extremes in muscle mass or diet. The data above are obtained from the National Kidney Disease Education Program (NKDEP) which additionally recommends that when the eGFR is used in patients with extremes of body mass index for purposes of drug dosing, the eGFR should be multiplied by the estimated BMI. CHEM PANEL ALT 90 unit/L 0 - 65 10/23 [facility] CHEM PANEL AST 29 unit/L 0 - 37 10/23 [facility] CHEM PANEL Albumin Lvl 3.8 g/dL 3.5 - 5.0 10/23 [facility] CHEM PANEL Total 6.9 g/dL 6.4 - 8.4 10/23 [facility] CHEM PANEL Calcium Lvl 8.5 mg/dL 8.5 - 10.5 10/23 [facility] CHEM PANEL CO2 25 meq/L 24 - 32 10/23 [facility] CHEM PANEL Potassium 3.6 meq/L 3.5 - 5.1 10/23 MH Lvl /2016 [facility] CHEM PANEL Chloride Lvl 104 meq/L 95 - 109 10/23 [facility] CHEM PANEL Sodium Lvl 136 meq/L 135 - 145 10/23 [facility] CHEM PANEL Glucose Lvl 90 mg/dL 70 - 99 10/23 [facility] CHEM PANEL Creatinine 0.76 mg/dL 0.50 - 10/23 Lvl 1.40 [facility] CHEM PANEL BUN 16 mg/dL 7 - 22 10/23 [facility] CHEM PANEL Bili Total 1.1 mg/dL 0.2 - 1.3 10/23 [facility] CHEM PANEL Alk Phos 56 unit/L 39 - 136 10/23 [facility] CHEM PANEL A/G Ratio 1.2 0.7 - 1.6 10/23 [facility] CHEM PANEL Globulin 3.1 g/dL 2.7 - 4.2 10/23 [facility] CHEM PANEL B/C Ratio 21 6 - 25 10/23 [facility] CHEM PANEL AGAP 10.6 meq/L 10.0 - 10/23 20. [facility] HEMATOLOGY Lymphocytes 2.5 K/CMM 1.0 - 5.5 10/23 [facility] HEMATOLOGY Basophils 0.4 % 0.0 - 1.0 10/23 [facility] HEMATOLOGY Segs-Bands # 5.9 K/CMM 1.5 - 8.1 10/23 [facility] HEMATOLOGY Eosinophils 0.0 K/CMM 0.0 - 0.5 10/23 [facility] HEMATOLOGY Monocytes # 1.0 K/CMM 0.0 - 0.8 10/23 [facility] HEMATOLOGY Segs 62.5 % 45.0 - 10/23 75.0 [facility] HEMATOLOGY Basophils # 0.0 K/CMM 0.0 - 0.2 10/23 [facility] HEMATOLOGY Lymphocytes 26.1 % 20.0 - 10/23 40.0 [facility] HEMATOLOGY Monocytes 10.6 % 2.0 - 12.0 10/23 [facility] HEMATOLOGY Eosinophils 0.4 % 0.0 - 4.0 10/23 [facility] HEMATOLOGY Hct 40.4 % 36.0 - 10/23 MH 48.0 [facility] HEMATOLOGY RDW 12.7 % 11.5 - 10/23 MH 14. [facility] HEMATOLOGY Platelet 270 K/CMM 133 - 450 10/23 [facility] HEMATOLOGY MPV 7.4 fL 7.4 - 10.4 10/23 [facility] HEMATOLOGY MCV 93.5 fL 80.0 - 10/23 MH 98.0 [facility] HEMATOLOGY MCH 32.0 pg 27.0 - 10/23 MH 31.0 [facility] HEMATOLOGY MCHC 34.2 g/dL 32.0 - 10/23 MH 36.0 [facility] HEMATOLOGY WBC 9.5 K/CMM 3.7 - 10.4 10/23 [facility] HEMATOLOGY RBC 4.32 M/CMM 4.20 - 10/23 MH 5.40 /2016 [facility] HEMATOLOGY Hgb 13.8 g/dL 12.0 - 10/23 16.0 [facility] DRUG U Cannab Scr Negative Negative 03/15 [facility] *NA* (03/14/16 7:24 PM) DRUG U Opiate Scr Negative Negative 03/15 [facility] *NA* (03/14/16 7:24 PM) DRUG U Phencyc Negative Negative 03/15 SCREEN Scr [facility] *NA* (03/14/16 7:24 PM) DRUG UDS Note See Note 03/15 [facility] (03/14/16 7:24 PM) DRUG U Cocaine Positive Negative 03/15 SCREEN Scr [facility] *ABN* (03/14/16 7:24 PM) DRUG U Amph Scr Negative Negative 03/15 [facility] *NA* (03/14/16 7:24 PM) DRUG U Jihan Scr Negative Negative 03/15 SCREEN [facility] *NA* (03/14/16 7:24 PM) DRUG U Benzodia Positive Negative 03/15 SCREEN Scr [facility] *ABN* (03/14/16 7:24 PM) URINE AND UA Color Paulina 03/15 STOOL [facility] URINE AND UA Sq Epi None Seen 03/15 STOOL [facility] URINE AND UA Mucus Few /LPF None Seen 03/15 [facility] /LPF /2016 [facility] URINE AND UA Leuk Est Trace Negative 03/15 STOOL [facility] *ABN* (03/14/16 7:24 PM) URINE AND UA Nitrite Negative Negative 03/15 STOOL [facility] (03/14/16 7:24 PM) URINE AND UA Glucose Negative Negative 03/15 [facility] mg/dL mg/dL [facility] URINE AND UA Protein 30 mg/dL Negative 03/15 [facility] mg/dL [facility] URINE AND UA Ketones Negative Negative 03/15 [facility] mg/dL mg/dL [facility] URINE AND UA pH 5.0 5.0 - 8.0 03/15 STOOL [facility] URINE AND UA Spec Grav 1.015 <=1.030 03/15 STOOL [facility] URINE AND UA Turbidity Moderate Clear 03/15 STOOL [facility] *ABN* (03/14/16 7:24 PM) URINE AND UA 4.0 mg/dL 0.1 - 1.0 03/15 STOOL Urobilinogen [facility] URINE AND UA Blood Negative Negative 03/15 STOOL [facility] (03/14/16 7:24 PM) URINE AND UA Bili Negative Negative 03/15 STOOL [facility] *NA* (03/14/16 7:24 PM) CHEM PANEL eGFR 95 03/14 Result Comment: The eGFR is calculated using the CKD-EPI formula. In most young, healthy individuals the eGFR will be >90 mL/ min/1.73m2. The eGFR declines with age. An eGFR of 60-89 may be normal in mL/min/1.7 some populations, particularly the elderly, for whom the CKD-EPI formula has not been extensively validated. Use of the eGFR is not recommended in the following populations: [facility] 3m2 Individuals with unstable creatinine concentrations, including patients and those with serious co-morbid conditions. Patients with extremes in muscle mass or diet. The data above are obtained from the National Kidney Disease Education Program (NKDEP) which additionally recommends that when the eGFR is used in patients with extremes of body mass index for purposes of drug dosing, the eGFR should be multiplied by the estimated BMI. CHEM PANEL Sodium Lvl 140 meq/L 135 - 145 03/14 [facility] CHEM PANEL Calcium Lvl 8.6 mg/dL 8.5 - 10.5 03/14 [facility] CHEM PANEL CO2 23 meq/L 24 - 32 03/14 [facility] CHEM PANEL BUN 5 mg/dL 7 - 22 03/14 [facility] CHEM PANEL Creatinine 0.79 mg/dL 0.50 - 03/14 MH Lvl 1.40 [facility] CHEM PANEL Potassium 3.2 meq/L 3.5 - 5.1 03/14 MH Lvl /2016 [facility] CHEM PANEL Albumin Lvl 3.3 g/dL 3.5 - 5.0 03/14 [facility] CHEM PANEL Total 6.5 g/dL 6.4 - 8.4 03/14 [facility] CHEM PANEL ALT 43 unit/L 0 - 65 03/14 [facility] CHEM PANEL Alk Phos 59 unit/L 39 - 136 03/14 [facility] CHEM PANEL Chloride Lvl 105 meq/L 95 - 109 03/14 [facility] CHEM PANEL Bili Total 0.4 mg/dL 0.2 - 1.3 03/14 [facility] CHEM PANEL Glucose Lvl 91 mg/dL 70 - 99 03/14 [facility] CHEM PANEL AST 31 unit/L 0 - 37 03/14 [facility] CHEM PANEL AGAP 15.2 meq/L 10.0 - 03/14 20.0 [facility] CHEM PANEL Globulin 3.2 g/dL 2.7 - 4.2 03/14 [facility] CHEM PANEL B/C Ratio 6 6 - 25 03/14 [facility] CHEM PANEL A/G Ratio 1.0 0.7 - 1.6 03/14 [facility] CHEM PANEL Lipase Lvl 258 unit/L 73 - 393 03/14 [facility] ENDOCRINOL S Preg Negative Negative 03/14 OG [facility] *NA* (03/14/16 5:14 PM) HEMATOLOGY RBC 4.31 M/CMM 4.20 - 03/14 5.40 [facility] HEMATOLOGY Hgb 13.8 g/dL 12.0 - 03/14 16.0 [facility] HEMATOLOGY WBC 9.8 K/CMM 3.7 - 10.4 03/14 [facility] HEMATOLOGY Platelet 312 K/CMM 133 - 450 03/14 [facility] HEMATOLOGY MPV 7.5 fL 7.4 - 10.4 03/14 [facility] HEMATOLOGY RDW 12.8 % 11.5 - 03/14 MH 14.5 /2016 [facility] MCHC 33.9 g/dL 32.0 - 03/14 MH 36.0 /2016 [facility] HEMATOLOGY MCV 94.4 fL 80.0 - 03/14 98.0 /2016 [facility] HEMATOLOGY Hct 40.7 % 36.0 - 03/14 MH 48.0 /2016 [facility] HEMATOLOGY MCH 32.0 pg 27.0 - 03/14 MH 31.0 /2016 [facility] HEMATOLOGY Basophils # 0.1 K/CMM 0.0 - 0.2 03/14 [facility] HEMATOLOGY Eosinophils 0.0 K/CMM 0.0 - 0.5 03/14 MH # /2016 [facility] HEMATOLOGY Lymphocytes 17.4 % 20.0 - 03/14 40.0 /2016 [facility] HEMATOLOGY Monocytes 4.4 % 2.0 - 12.0 03/14 [facility] HEMATOLOGY Segs 77.1 % 45.0 - 03/14 75.0 /2016 [facility] HEMATOLOGY Monocytes # 0.4 K/CMM 0.0 - 0.8 03/14 [facility] HEMATOLOGY Lymphocytes 1.7 K/CMM 1.0 - 5.5 03/14 /2016 [facility] HEMATOLOGY Segs-Bands # 7.6 K/CMM 1.5 - 8.1 03/14 [facility] Basophils 0.7 % 0.0 - 1.0 03/14 [facility] Eosinophils 0.4 % 0.0 - 4.0 03/14 [facility] CHEM PANEL Globulin 3.3 g/dL 2.7 - 4.2 01/06 [facility] CHEM PANEL A/G Ratio 1.1 0.7 - 1.6 01/06 [facility] CHEM PANEL AGAP 12.7 meq/L 10.0 - 01/06 20. [facility] CHEM PANEL B/C Ratio 11 6 - 25 01/06 [facility] CHEM PANEL Alk Phos 75 unit/L 39 - 136 01/06 [facility] CHEM PANEL ALT 55 unit/L 0 - 65 01/06 [facility] CHEM PANEL AST 53 unit/L 0 - 37 01/06 [facility] CHEM PANEL Total 6.9 g/dL 6.4 - 8.4 01/06 [facility] CHEM PANEL Albumin Lvl 3.6 g/dL 3.5 - 5.0 01/06 [facility] CHEM PANEL Bili Total 0.5 mg/dL 0.2 - 1.3 01/06 [facility] CHEM PANEL CO2 25 meq/L 24 - 32 01/06 [facility] CHEM PANEL Calcium Lvl 8.5 mg/dL 8.5 - 10.5 01/06 [facility] CHEM PANEL Chloride Lvl 105 meq/L 95 - 109 01/06 [facility] CHEM PANEL eGFR 114 01/06 Result Comment: The eGFR is calculated using the CKD-EPI formula. In most young, healthy individuals the eGFR will be >90 mL/ min/1.73m2. The eGFR declines with age. An eGFR of 60-89 may be normal in mL/min/1.7 some populations, particularly the elderly, for whom the CKD-EPI formula has not been extensively validated. Use of the eGFR is not recommended in the following populations: [facility] 3m2 Individuals with unstable creatinine concentrations, including patients and those with serious co-morbid conditions. Patients with extremes in muscle mass or diet. The data above are obtained from the National Kidney Disease Education Program (NKDEP) which additionally recommends that when the eGFR is used in patients with extremes of body mass index for purposes of drug dosing, the eGFR should be multiplied by the estimated BMI. CHEM PANEL Creatinine 0.64 mg/dL 0.50 - 01/06 Lvl 1.40 [facility] CHEM PANEL Sodium Lvl 139 meq/L 135 - 145 01/06 [facility] CHEM PANEL Glucose Lvl 90 mg/dL 70 - 99 01/06 [facility] CHEM PANEL Potassium 3.7 meq/L 3.5 - 5.1 01/06 Lv [facility] CHEM PANEL BUN 7 mg/dL 7 - 22 01/06 [facility] HEMATOLOGY Monocytes 7.2 % 2.0 - 12.0 01/06 [facility] HEMATOLOGY Eosinophils 0.9 % 0.0 - 4.0 01/06 [facility] HEMATOLOGY Basophils 1.4 % 0.0 - 1.0 01/06 [facility] HEMATOLOGY Basophils # 0.1 K/CMM 0.0 - 0.2 01/06 [facility] HEMATOLOGY Segs 61.3 % 45.0 - 10/28 [facility] 75.0 /2015 [place] HEMATOLOGY Lymphocytes 29.2 % 20.0 - 01/06 [facility] 40.0 [place] HEMATOLOGY Eosinophils 0.1 K/CMM 0.0 - 0.5 01/06 [facility] # /2015 [place] HEMATOLOGY Segs-Bands # 4.5 K/CMM 1.5 - 8.1 01/06 [facility] HEMATOLOGY Lymphocytes 2.1 K/CMM 1.0 - 5.5 01/06 [facility] # /2015 [place] HEMATOLOGY Monocytes # 0.5 K/CMM 0.0 - 0.8 01/06 [facility] [place] HEMATOLOGY MCV 92.3 fL 80.0 - 01/06 [facility] 98.0 [place] HEMATOLOGY MCH 32.2 pg 27.0 - 01/06 [facility] 31.0 [place] HEMATOLOGY RDW 13.2 % 11.5 - 01/06 [facility] 14.5 [place] HEMATOLOGY MCHC 34.9 g/dL 32.0 - 01/06 [facility] 36.0 [place] HEMATOLOGY WBC 7.3 K/CMM 3.7 - 10.4 01/06 [facility] HEMATOLOGY RBC 4.42 M/CMM 4.20 - 01/06 [facility] 5.40 /2015 [place] HEMATOLOGY Hct 40.8 % 36.0 - 01/06 [facility] 48.0 [place] HEMATOLOGY Hgb 14.2 g/dL 12.0 - 01/06 [facility] 16.0 [place] HEMATOLOGY Platelet 316 K/CMM 133 - 450 01/06 [facility] HEMATOLOGY MPV 7.2 fL 7.4 - 10.4 01/06 [facility] DRUG U Phencyc Negative Negative 01/06 [facility] SCREEN [place] *NA* (01/06/16 9:20 PM) DRUG UDS Note See Note 01/06 [facility] [place] (01/06/16 9:20 PM) DRUG U Amph Scr Negative Negative 01/06 [facility] [place] *NA* (01/06/16 9:20 PM) DRUG U Jihan Scr Negative Negative 01/06 [facility] [place] *NA* (01/06/16 9:20 PM) DRUG U Benzodia Negative Negative 01/06 [facility] S[facility] [place] *NA* (01/06/16 9:20 PM) DRUG U Cocaine Positive Negative 10/28 [facility] SCREEN Scr [place] *ABN* (01/06/16 9:20 PM) DRUG U Cannab Scr Negative Negative 01/06 [facility] [place] *NA* (01/06/16 9:20 PM) DRUG U Opiate Scr Positive Negative 01/06 [facility] [place] *ABN* (01/06/16 9:20 PM) URINE AND UA Blood Negative Negative 01/06 [facility] [place] (01/06/16 9:20 PM) URINE AND UA 1.0 EU/dL 0.1 - 1.0 01/06 [facility] Urobilinogen /2015 URINE AND UA Nitrite Negative Negative 01/06 [facility] (01/06/16 9:20 PM) URINE AND UA Leuk Est Negative Negative 01/06 [facility] (01/06/16 9:20 PM) URINE AND UA Glucose Negative Negative 01/06 [facility] mg/dL mg/dL URINE AND UA Ketones Negative Negative 01/06 [facility] mg/dL mg/dL URINE AND UA Bili Negative Negative 01/06 [facility] [place] *NA* (01/06/16 9:20 PM) URINE AND UA Turbidity Clear Clear 01/06 [facility] (01/06/16 9:20 PM) URINE AND UA Protein Negative Negative 01/06 [facility] mg/dL mg/dL URINE AND UA Spec Grav 1.015 <=1.030 01/06 [facility] URINE AND UA pH 8.0 5.0 - 8.0 01/06 [facility] URINE AND UA Color Yellow Yellow 01/06 [facility] [place] *NA* (01/06/16 9:20 PM) URINE AND UA RBC 0-2 /HPF 0 - 2 01/06 [facility] URINE AND UA Bacteria Few /HPF None Seen 01/06 [facility] /HPF URINE AND UA Mucus Rare /LPF None Seen 01/06 [facility] /LPF URINE AND UA Sq Epi Few /LPF Few /LPF 01/06 [facility] URINE AND UA WBC 0-2 /HPF None Seen 01/06 [facility] /HPF URINE CHEM U Preg Negative Negative 01/06 (01/06/16 9:20 PM) DRUG U Phencyc Negative Negative 12/01 [place] *NA* (12/01/13 5:25 AM) DRUG U Opiate Scr Positive Negative 12/01 [facility] *ABN* (12/01/13 5:25 AM) DRUG UDS Note See Note 3 12/01 3Interpretive Data: Drugs reported as positive have not been confirmed by a second method and should be used for medical purposes only. To order [facility] (12/01/13 5:25 AM) confirmation, contact laboratory. note: Below are cut-off concentrations for all urine drugs of abuse performed in the laboratory. Some drugs listed in the table may not be included in this panel. Description Cut-off concentration Amphetamine 1000 ng/mL Barbiturates 200 ng/mL Benzodiazepines 300 ng/mL Cocaine metabolites 300 ng/mL Opiates 300 ng/mL Phencyclidine 25 ng/mL Propoxyphene 300 ng/mL Marijuana metabolites 50 ng/mL Methadone 300 ng/mL Urine alcohol 20 mg/dL DRUG U Amph Scr Positive Negative 12/01 [place] *ABN* (12/01/13 5:25 AM) DRUG U Jihan Scr Negative Negative 12/01 [facility] *NA* (12/01/13 5:25 AM) DRUG U Cocaine Positive Negative 12/01 [place] *ABN* (12/01/13 5:25 AM) DRUG U Benzodia Positive Negative 12/01 [place] *ABN* (12/01/13 5:25 AM) DRUG U Cannab Scr Positive Negative 12/01 [place] *ABN* (12/01/13 5:25 AM) URINE AND UA Color DARK YELLO 12/01 ST[facility] URINE AND UA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 [facility] Temperature Oral (F) 98.4 F 03/15/2016 [facility] Respitory Rate 16 03/15/2016 [facility] Heart Rate 89 03/15/2016 [facility] Temperature Oral (F) 98.0 F 03/15/2016 [facility] Weight 63.636 03/14/2016 [facility] Respitory Rate 18 01/07/2016 [facility] Heart Rate 78 01/07/2016 [facility] Systolic (mm Hg) 118 01/07/2016 [facility] Diastolic (mm Hg) 78 01/07/2016 [facility] Temperature Oral (F) 98.0 F 01/07/2016 [facility] Heart Rate 74 01/07/2016 [facility] Respitory Rate 16 01/07/2016 [facility] Temperature Oral (F) 97.9 F 01/07/2016 [facility] Systolic (mm Hg) 148 01/07/2016 [facility] Diastolic (mm Hg) 69 01/07/2016 [facility] Heart Rate 77 01/07/2016 [facility] Systolic (mm Hg) 139 01/07/2016 [facility] Diastolic (mm Hg) 72 01/07/2016 [facility] Respitory Rate 18 01/07/2016 [facility] Temperature Oral (F) 98.5 F 01/07/2016 [facility] Weight 61.364 01/07/2016 [facility] BMI Calculated 23.22 01/07/2016 [facility] Height 162.56 cm 01/07/2016 [facility] Height 162.56 cm 07/06/2015 [facility] BMI Calculated 24.08 07/06/2015 [facility] Weight 63.636 07/06/2015 [facility] Respitory Rate 18 07/06/2015 [facility] Temperature Oral (F) 97.9 F 07/06/2015 [facility] Systolic (mm Hg) 118 07/06/2015 [facility] Diastolic (mm Hg) 83 07/06/2015 [facility] Heart Rate 89 07/06/2015 [facility] Heart Rate 74 08/04/2014 [facility] Temperature Oral (F) 98.1 F 08/04/2014 [facility] Resp[facility] Rate 18 08/04/2014 [facility] Systolic (mm Hg) 93 08/04/2014 [facility] Diastolic (mm Hg) 61 08/04/2014 [facility] Weight 63.636 08/04/2014 [facility] BMI Calculated 24.08 08/04/2014 [facility] Height 162.56 cm 08/04/2014 [facility] Respitory Rate 18 08/04/2014 [facility] Heart Rate 78 08/04/2014 [facility] Systolic (mm Hg) 92 08/04/2014 [facility] Diastolic (mm Hg) 62 08/04/2014 [facility] Diastolic (mm Hg) 82 12/01/2013 [facility] Temperature Oral (F) 97.8 F 12/01/2013 [facility] Systolic (mm Hg) 128 12/01/2013 [facility] Respitory Rate 18 12/01/2013 [facility] Diastolic (mm Hg) 96 12/01/2013 [facility] Systolic (mm Hg) 132 12/01/2013 [facility] Respitory Rate 18 12/01/2013 [facility] Respitory Rate 15 12/01/2013 [facility] Temperature Oral (F) 98.0 F 12/01/2013 [facility] Diastolic (mm Hg) 89 12/01/2013 [facility] Systolic (mm Hg) 117 12/01/2013 [facility] Weight 54.545 12/01/2013 [facility] Height 162.56 cm 12/01/2013 [facility] BMI Calculated 20.64 12/01/2013 [facility] Temperature Oral (F) 98.3 F 12/01/2013 [facility] Heart Rate 126 12/01/2013 [facility] Weight 52.273 10/18/2013 [facility] BMI Calculated 19.78 10/18/2013 [facility] Height 162.56 cm 10/18/2013 [facility] Respitory Rate 18 10/18/2013 [facility] Temperature Oral (F) 99.6 F 10/18/2013 [facility] Systolic (mm Hg) 128 10/18/2013 [facility] Diastolic (mm Hg) 93 10/18/2013 [facility] Heart Rate 89 10/18/2013 [facility] Height 162.56 cm 10/04/2013 [facility] Weight 52.273 10/04/2013 [facility] BMI Calculated 19.78 10/04/2013 [facility] Diastolic (mm Hg) 73 10/04/2013 [facility] Temperature Oral (F) 98.2 F 10/04/2013 [facility] Respitory Rate 20 10/04/2013 [facility] Heart Rate 99 10/04/2013 [facility] Systolic (mm Hg) 110 10/04/2013 [facility] Temperature Oral (F) 98.0 F 10/02/2013 [facility] Respitory Rate 18 10/02/2013 [facility] Heart Rate 87 10/02/2013 [facility] Diastolic (mm Hg) 68 10/02/2013 [facility] Systolic (mm Hg) 112 10/02/2013 [facility] Weight 54.545 10/02/2013 [facility] BMI Calculated 20.64 10/02/2013 [facility] Height 162.56 cm 10/02/2013 [facility] Respitory Rate 18 10/02/2013 [facility] Temperature Oral (F) 97.5 F 10/02/2013 [facility] Systolic (mm Hg) 113 10/02/2013 [facility] Diastolic (mm Hg) 81 10/02/2013 [facility] Heart Rate 95 10/02/2013 [facility] Height 64 09/01/2013 [facility] Weight 122 09/01/2013 [facility] Temperature Oral (F) 97.9 F 09/01/2013 [facility] Respitory Rate 16 09/01/2013 [facility] Heart Rate 84 09/01/2013 [facility] Systolic (mm Hg) 91 09/01/2013 [facility] Diastolic (mm Hg) 55 09/01/2013 [facility] Diastolic (mm Hg) 78 08/31/2013 [facility] Systolic (mm Hg) 132 08/31/2013 [facility] Respitory Rate 16 08/31/2013 [facility] Heart Rate 80 08/31/2013 [facility] Respitory Rate 18 08/31/2013 [facility] Heart Rate 99 08/31/2013 [facility] Temperature Oral (F) 98.4 F 08/31/2013 [facility] Height 162.56 cm 08/31/2013 [facility] Weight 52.273 08/31/2013 [facility] BMI Calculated 19.78 08/31/2013 [facility] Diastolic (mm Hg) 75 08/31/2013 [facility] Systolic (mm Hg) 110 08/31/2013 [facility] Systolic (mm Hg) 124 08/27/2013 [facility] Diastolic (mm Hg) 88 08/27/2013 [facility] Heart Rate 64 08/27/2013 [facility] Temperature Oral (F) 97.8 F 08/27/2013 [facility] Respitory Rate 18 08/27/2013 [facility] Diastolic (mm Hg) 83 08/27/2013 [facility] Systolic (mm Hg) 128 08/27/2013 [facility] Heart Rate 71 08/27/2013 [facility] Respitory Rate 18 08/27/2013 [facility] Temperature Oral (F) 98.6 F 08/27/2013 [facility] Systolic (mm Hg) 127 08/27/2013 [facility] Diastolic (mm Hg) 85 08/27/2013 [facility] Respitory Rate 18 08/27/2013 [facility] Heart Rate 70 08/27/2013 [facility] Temperature Oral (F) 98.4 F 08/27/2013 [facility] Height 162.56 cm 08/27/2013 [facility] Weight 54.545 08/27/2013 [facility] BMI Calculated 20.64 08/27/2013 [facility] Heart Rate 60 08/18/2013 [facility] Temperature Oral (F) 97.6 F 08/18/2013 [facility] Systolic (mm Hg) 100 08/18/2013 [facility] Respitory Rate 18 08/18/2013 [facility] Diastolic (mm Hg) 65 08/18/2013 [facility] Diastolic (mm Hg) 65 08/18/2013 [facility] Systolic (mm Hg) 103 08/18/2013 [facility] Respitory Rate 18 08/18/2013 [facility] Heart Rate 67 08/18/2013 [facility] Temperature Oral (F) 97.6 F 08/18/2013 [facility] BMI Calculated 20.64 08/18/2013 [facility] Weight 54.545 08/18/2013 [facility] Height 162.56 cm 08/18/2013 [facility] Temperature Oral (F) 98.0 F 08/18/2013 [facility] Heart Rate 76 08/18/2013 [facility] Respitory Rate 18 08/18/2013 [facility] Systolic (mm Hg) 94 08/18/2013 [facility] Diastolic (mm Hg) 60 08/18/2013 [facility] Systolic (mm Hg) 115 08/15/2013 [facility] Respitory Rate 17 08/15/2013 [facility] Temperature Oral (F) 97.5 F 08/15/2013 [facility] Heart Rate 95 08/15/2013 [facility] Diastolic (mm Hg) 75 08/15/2013 [facility] Weight 52.727 08/15/2013 [facility] BMI Calculated 19.95 08/15/2013 [facility] Height 162.56 cm 08/15/2013 [facility] Systolic (mm Hg) 118 08/15/2013 [facility] Diastolic (mm Hg) 80 08/15/2013 [facility] Heart Rate 108 08/15/2013 [facility] Respitory Rate 18 08/15/2013 [facility] Temperature Oral (F) 97.7 F 08/15/2013 [facility] Respitory Rate 18 08/12/2013 [facility] Heart Rate 87 08/12/2013 [facility] Temperature Oral (F) 98.2 F 08/12/2013 [facility] Diastolic (mm Hg) 76 08/12/2013 [facility] Systolic (mm Hg) 127 08/12/2013 [facility] Temperature Oral (F) 97.9 F 08/12/2013 [facility] Diastolic (mm Hg) 71 08/12/2013 [facility] Systolic (mm Hg) 114 08/12/2013 [facility] Heart Rate 68 08/12/2013 [facility] Respitory Rate 18 08/12/2013 [facility] Diastolic (mm Hg) 71 08/11/2013 [facility] Systolic (mm Hg) 108 08/11/2013 [facility] Respitory Rate 18 08/11/2013 [facility] Heart Rate 88 08/11/2013 [facility] Temperature Oral (F) 98.9 F 08/11/2013 [facility] Weight 52.727 08/11/2013 [facility] BMI Calculated 19.95 08/11/2013 [facility] Height 162.56 cm 08/11/2013 [facility] Temperature Oral (F) 97.6 F 08/03/2013 [facility] Diastolic (mm Hg) 81 08/03/2013 [facility] Systolic (mm Hg) 114 08/03/2013 [facility] [facility] Respitory Rate 18 08/03/2013 [facility] Heart Rate 80 08/03/2013 [facility] Respitory Rate 18 08/03/2013 [facility] Diastolic (mm Hg) 72 08/03/2013 [facility] Systolic (mm Hg) 107 08/03/2013 [facility] Heart Rate 94 08/03/2013 [facility] Temperature Oral (F) 98.0 F 08/03/2013 [facility] Height 162.56 cm 08/03/2013 [facility] BMI Calculated 20.64 08/03/2013 [facility] Weight 54.545 08/03/2013 [facility] BMI Calculated 20.64 08/03/2013 [facility] Height 162.56 cm 08/03/2013 [facility] Weight 54.545 08/03/2013 [facility] Temperature Oral (F) 98.3 F 08/03/2013 [facility] Heart Rate 84 08/03[facility] Systolic (mm Hg) 106 08/03/2013 [facility] Diastolic (mm Hg) 59 08/03/2013 [facility] Respitory Rate 18 08/03/2013 [facility] Heart Rate 85 07/31/2013 [facility] Systolic (mm Hg) 113 07/31/2013 [facility] Diastolic (mm Hg) 75 07/31/2013 [facility] Respitory Rate 16 07/31/2013 [facility] Temperature Oral (F) 97.9 F 07/31/2013 [facility] Respitory Rate 18 07/31/2013 [facility] Systolic (mm Hg) 107 07/31/2013 [facility] Heart Rate 101 07/31/2013 [facility] Temperature Oral (F) 98.5 F 07/31/2013 [facility] Diastolic (mm Hg) 67 07/31/2013 [facility] Weight 53.182 07/30/2013 [facility] Height 162.56 cm 07/30/2013 [facility] BMI Calculated 20.13 07/30/2013 [facility] Respitory Rate 18 07/30/2013 [facility] Diastolic (mm Hg) 65 07/30/2013 [facility] Systolic (mm Hg) 109 07/30/2013 [facility] Heart Rate 78 07/30/2013 [facility] Temperature Oral (F) 98.4 F 07/30/2013 [facility] Diastolic (mm Hg) 74 07/29/2013 [facility] Systolic (mm Hg) 106 07/29/2013 [facility] Temperature Oral (F) 98.8 F 07/29/2013 [facility] Heart Rate 66 07/29/2013 [facility] Respitory Rate 18 07/29/2013 [facility] Diastolic (mm Hg) 73 07/29/2013 [facility] Heart Rate 71 07/29/2013 [facility] Temperature Oral (F) 98.4 F 07/29/2013 [facility] Systolic (mm Hg) 115 07/29/2013 [facility] Respitory Rate 18 07/29/2013 [facility] Heart Rate 73 07/29/2013 [facility] Diastolic (mm Hg) 79 07/29/2013 [facility] Systolic (mm Hg) 115 07/29/2013 [facility] Temperature Oral (F) 98.4 F 07/29/2013 [facility] Respitory Rate 18 07/29/2013 [facility] Weight 53.182 07/28/2013 [facility] Height 162.56 cm 07/28/2013 [facility] BMI Calculated 20.13 07/28/2013 [facility] Respitory Rate 19 07/25/2013 [facility] Heart Rate 83 07/25/2013 [facility] Temperature Oral (F) 98.4 F 07/25/2013 [facility] Diastolic (mm Hg) 64 07/25/2013 [facility] Systolic (mm Hg) 105 07/25/2013 [facility] Respitory Rate 18 07/25/2013 [facility] Heart Rate 83 07/25/2013 [facility] Systolic (mm Hg) 112 07/25/2013 [facility] Temperature Oral (F) 98.3 F 07/25/2013 [facility] Diastolic (mm Hg) 63 07/25/2013 [facility] BMI Calculated 20.64 07/25/2013 [facility] Weight 54.545 07/25/2013 [facility] Height 162.56 cm 07/25/2013 [facility] Respitory Rate 18 07/25/2013 [facility] Temperature Oral (F) 98.6 F 07/25/2013 [facility] Diastolic (mm Hg) 68 07/25/2013 [facility] Heart Rate 101 07/25/2013 [facility] Systolic (mm Hg) 100 07/25/2013 [facility] Temperature Oral (F) 99.0 F 07/24/2013 [facility] Systolic (mm Hg) 114 07/24/2013 [facility] Diastolic (mm Hg) 76 07/24/2013 [facility] Respitory Rate 18 07/24/2013 [facility] Heart Rate 79 07/24/2013 [facility] Heart Rate 86 07/24/2013 [facility] Respitory Rate 18 07/24/2013 [facility] Diastolic (mm Hg) 80 07/24/2013 [facility] Systolic (mm Hg) 120 07/24/2013 [facility] Respitory Rate 18 07/24/2013 [facility] Diastolic (mm Hg) 72 07/24/2013 [facility] Heart Rate 84 07/24/2013 [facility] Systolic (mm Hg) 116 07/24/2013 [facility] Weight 54.545 07/24/2013 [facility] Height 162.56 cm 07/24/2013 [facility] BMI Calculated 20.64 07/24/2013 [facility] Temperature Oral (F) 99.1 F 07/24/2013 [facility] Systolic (mm Hg) 122 07/10/2013 [facility] Respitory Rate 18 07/10/2013 [facility] Heart Rate 80 07/10/2013 [facility] Temperature Oral (F) 98.7 F 07/10/2013 [facility] Diastolic (mm Hg) 77 07/10/2013 [facility] Weight 52.273 07/10/2013 [facility] Height 162.56 cm 07/10/2013 [facility] BMI Calculated 19.78 07/10/2013 [facility] Heart Rate 77 07/10/2013 [facility] Respitory Rate 18 07/10/2013 [facility] Temperature Oral (F) 99.0 F 07/10/2013 [facility] Systolic (mm Hg) 127 07/10/2013 [facility] Diastolic (mm Hg) 85 07/10/2013 [facility] Respitory Rate 18 07/08/2013 [facility] Heart Rate 89 07/08/2013 [facility] Temperature Oral (F) 98.0 F 07/08/2013 [facility] Systolic (mm Hg) 112 07/08/2013 [facility] Diastolic (mm Hg) 86 07/08/2013 [facility] Weight 52.727 07/08/2013 [facility] Height 162.56 cm 07/08/2013 [facility] BMI Calculated 19.95 07/08/2013 [facility] Systolic (mm Hg) 122 07/08/2013 [facility] Respitory Rate 20 07/08/2013 [facility] Heart Rate 99 07/08/2013 [facility] Diastolic (mm Hg) 84 07/08/2013 [facility] Temperature Oral (F) 98.3 F 07/08/2013 [facility] Diastolic (mm Hg) 78 06/30/2013 [facility] Systolic (mm Hg) 115 06/30/2013 [facility] Heart Rate 70 06/30/2013 [facility] Temperature Oral (F) 98.2 F 06/30/2013 [facility] Respitory Rate 16 06/30/2013 [facility] Weight 53.182 06/30/2013 [facility] BMI Calculated 20.13 06/30/2013 [facility] Height 162.56 cm 06/30/2013 [facility] Systolic (mm Hg) 116 06/30/2013 [facility] Diastolic (mm Hg) 74 06/30/2013 [facility] Temperature Oral (F) 98.2 F 06/30/2013 [facility] Respitory Rate 18 06/30/2013 [facility] Heart Rate 78 06/30/2013 [facility] Systolic (mm Hg) 115 2013 [facility] Diastolic (mm Hg) 70 2013 [facility] Heart Rate 90 2013 [facility] Respitory Rate 16 2013 [facility] Weight 53.182 2013 [facility] BMI Calculated 20.13 2013 [facility] Height 162.56 cm 2013 [facility] Heart Rate 91 2013 [facility] Respitory Rate 16 2013 [facility] Temperature Oral (F) 98.4 F 2013 [facility] Systolic (mm Hg) 112 2013 [facility] Diastolic (mm Hg) 76 2013 [facility] Weight 52.273 06/26/2013 [facility] Height 162.56 cm 06/26/2013 [facility] BMI Calculated 19.78 06/26/2013 [facility] Temperature Oral (F) 98.9 F 06/26/2013 [facility] Diastolic (mm Hg) 83 06/26/2013 [facility] Heart Rate 83 06/26/2013 [facility] Respitory Rate 18 06/26/2013 [facility] Systolic (mm Hg) 123 06/26/2013 [facility] Diastolic (mm Hg) 80 06/22/2013 [facility] Systolic (mm Hg) 119 06/22/2013 [facility] Respitory Rate 18 06/22/2013 [facility] Heart Rate 80 06/22/2013 [facility] Temperature Oral (F) 98.7 F 06/22/2013 [facility] Weight 51.364 06/22/2013 [facility] Heart Rate 82 06/22/2013 [facility] Respitory Rate 18 06/22/2013 [facility] Systolic (mm Hg) 123 06/22/2013 [facility] Temperature Oral (F) 98.8 F 06/22/2013 [facility] Diastolic (mm Hg) 95 06/22/2013 [facility] BMI Calculated 19.44 06/22/2013 [facility] Height 162.56 cm 06/22/2013 [facility] Respitory Rate 18 06/16/2013 [facility] Heart Rate 70 06/16/2013 [facility] Temperature Oral (F) 98.0 F 06/16/2013 [facility] Systolic (mm Hg) 110 06/16/2013 [facility] Diastolic (mm Hg) 67 06/16/2013 [facility] Temperature Oral (F) 98.0 F 06/16/2013 [facility] Height 162.56 cm 06/16/2013 [facility] Weight 52.273 06/16/2013 [facility] BMI Calculated 19.78 06/16/2013 [facility] Diastolic (mm Hg) 77 06/16/2013 [facility] Systolic (mm Hg) 108 06/16/2013 [facility] Respitory Rate 18 06/16/2013 [facility] Heart Rate 72 06/16/2013 [facility] Respitory Rate 20 06/08/2013 [facility] Systolic (mm Hg) 116 06/08/2013 [facility] Diastolic (mm Hg) 80 06/08/2013 [facility] Heart Rate 114 06/08/2013 [facility] Height 162.56 cm 06/08/2013 [facility] BMI Calculated 19.44 06/08/2013 [facility] Weight 51.364 06/08/2013 [facility] Diastolic (mm Hg) 86 06/08/2013 [facility] Systolic (mm Hg) 117 06/08/2013 [facility] Temperature Oral (F) 98.2 F 06/08/2013 [facility] Heart Rate 130 06/08/2013 [facility] Respitory Rate 20 06/08/2013 [facility] BMI Calculated 19.61 05/30/2013 [facility] Height 162.56 cm 05/30/2013 [facility] Weight 51.818 05/30/2013 [facility] Respitory Rate 16 05/30/2013 [facility] Temperature Oral (F) 98.5 F 05/30/2013 [facility] Heart Rate 92 05/30/2013 [facility] Systolic (mm Hg) 127 05/30/2013 [facility] Diastolic (mm Hg) 79 05/30/2013 [facility] Diastolic (mm Hg) 65 05/23/2013 [facility] Respitory Rate 18 05/23/2013 [facility] Heart Rate 90 05/23/2013 [facility] Systolic (mm Hg) 108 05/23/2013 [facility] Temperature Oral (F) 98.2 F 05/23/2013 [facility] Weight 53.182 05/23/2013 [facility] BMI Calculated 20.13 05/23/2013 [facility] Height 162.56 cm 05/23/2013 [facility] Systolic (mm Hg) 104 05/23/2013 [facility] Respitory Rate 16 05/23/2013 [facility] Diastolic (mm Hg) 65 05/23/2013 [facility] Heart Rate 94 05/23/2013 [facility] Temperature Oral (F) 98.0 F 05/23/2013 [facility] Temperature Oral (F) 98.2 F 12/05/2012 [facility] Systolic (mm Hg) 115 12/05/2012 [facility] Diastolic (mm Hg) 75 12/05/2012 [facility] Heart Rate 56 12/05/2012 [facility] Respitory Rate 18 12/05/2012 [facility] Height 162.56 cm 12/05/2012 [facility] Weight 59.091 12/05/2012 [facility] Respitory Rate 16 12/05/2012 [facility] Systolic (mm Hg) 114 12/05/2012 [facility] Diastolic (mm Hg) 75 12/05/2012 [facility] Heart Rate 68 12/05/2012 [facility] Temperature Oral (F) 98.2 F 12/05/2012 [facility] Diastolic (mm Hg) 71 11/05/2012 [facility] Temperature Oral (F) 98.1 F 11/05/2012 [facility] Heart Rate 85 11/05/2012 [facility] Systolic (mm Hg) 119 11/05/2012 [facility] Respitory Rate 18 11/05/2012 [facility] Temperature Oral (F) 97.1 F 11/05/2012 [facility] Respitory Rate 18 11/05/2012 [facility] Heart Rate 89 11/05/2012 [facility] Diastolic (mm Hg) 77 11/05/2012 [facility] Systolic (mm Hg) 112 11/05/2012 [facility] Height 162.56 cm 11/05/2012 [facility] Weight 60 11/05/2012 [facility] Height 162.56 cm 10/21/2012 [facility] Weight 60.909 10/21/2012 [facility] Weight 61.364 10/05/2012 [facility] Height 162.56 cm 10/05/2012 [facility] Height 162.56 cm 08/27/2011 [facility] Weight 67.727 08/27/2011 [facility] Heart Rate 66.0 02/01/2011 [facility] Systolic (mm Hg) 100.0 02/01/2011 [facility] Diastolic (mm Hg) 69.0 02/01/2011 [facility] Diastolic (mm Hg) 67.0 02/01/2011 [facility] Respitory Rate 18.0 02/01/2011 [facility] Heart Rate 71.0 02/01/2011 [facility] Systolic (mm Hg) 116.0 02/01/2011 [facility] Height 162.56 cm 02/01/2011 [facility] Weight 62.727 02/01/2011 [facility] Temperature Oral (F) 99.1 F 02/01/2011 [facility] Systolic (mm Hg) 108.0 02/01/2011 [facility] Diastolic (mm Hg) 65.0 02/01/2011 [facility] Respitory Rate 20.0 02/01/2011 [facility] Heart Rate 79.0 02/01/2011 [facility] Encounters Location Location Encounter Encounter Reason Attending ADM DC Status Source Details Type Number For Provider Date Date Visit [facility] Emergency [id number] AMY 02/01 02/01 Active [facility] /2010 [facility] Emergency [id number] OTHER [place] 08/26 08/26 Active [facility] /2011 [facility] Emergency [id number] [place] 10/05 10/05 Active [facility] /2012 [facility] Emergency [id number] AMY 10/21 10/21 Active [facility] /2012 [facility] Emergency [id number] CRUZ 11/05 11/05 Active [facility] /2012 [facility] Emergency [id number] [facility] 12/05 12/05 Active [facility] /2012 [facility] EC [id number] _MAPID: Ayesha 05/23 05/23 [facility] [id number] [facility] Takenaka /2013 [facility] [id number] Center [address] [facility] EC [id number] _MAPID: Keo 05/30 05/30 [facility] [id number] [facility] Lou /2013 [facility] [id number] Center [address] [facility] EC [id number] _MAPID: Shiv 06/07 06/08 [facility] [id number] E[facility] Radecki /2013 [facility] [id number] [address] [place] [id number] Christopher 06/16 06/16 [facility] [place] [place] [id number] Marylin 06/22 06/22 [facility] [place] [facility] [place] [id number] Christopher 06/26 06/26 [facility] [place] [facility] [place] [id number] Amy 06/28 06/28 [facility] [place] [facility] [place] [id number] Ayesha 06/30 06/30 [facility] [place] [facility] [place] [id number] Niall 07/08 07/08 [facility] [place] [facility] [place] [id number] Richard 07/10 07/10 [facility] [place] [facility] EC [id number] Negar Cristofer 07/24 07/24 [facility] [place] [id number] Sandy 07/25 07/25 [facility] Zambrano [facility] [place] [id number] Niall 07/28 07/29 [facility] [place] [facility] [place] [id number] Negar Cristofer 07/30 07/31 [facility] [place] [id number] Rickie Jarretttge 08/03 08/03 [facility] [place] [id number] Patrick Van 08/03 08/03 [facility] Meter [facility] [place] [id number] Ayesha 08/11 08/12 [facility] [place] [facility] [place] [id number] Christopher 08/15 08/15 [facility] [place] [facility] [place] [id number] Shiv 08/18 08/18 [facility] Radecki [facility] [place] [id number] Ayesha 08/27 08/27 [facility] [place] [facility] EC [id number] Chrystan 08/31 08/31 [facility] Skefos /2013 [facility] Lab Report [id number] Prasuna 10/02 10/02 [facility] Winkler MD /2013 [facility] [place] [id number] Donny Bustos 10/02 10/02 [facility] [place] [id number] Kyaw 10/04 10/04 [facility] Ranjith [facility] [place] [id number] Bautista Zavaleta 10/18 10/18 [facility] /2013 [facility] EC [id number] Bautista Zavaleta 10/19 10/19 [facility] /2013 [facility] EC [id number] Pancho 12/01 12/01 [facility] Rivas /2013 [facility] EC [id number] Ke Wolfe 08/04 08/04 [facility] [place] [id number] Alessio 07/05 07/05 [facility] [place] [facility] [id number] Tatsuo 01/06 01/06 [facility] Nicole /2015 [facility] Emergency [id number] Fred 03/14 03/15 [facility] Bundy /2016 [facility] Emergency [id number] Shiv 10/23 10/23 [facility] Bryson /2016 [facility] Emergency [id number] Pavan 03/02 03/03 [facility] Zuniga /2016 [facility] Emergency [id number] Tooth Darrius Zaidi 03/14 03/14 [facility] BT pain /2017 Health Procedures Procedure Code Date Perfomer Comments Source smoking/tobacco 14 09/01/2013 yes Medical cessation, Group patient education and counseling vaginal Pap smear [id number] 03/12/2011 Normal Medical results Group mammogram [id number] 03/12/2011 Normal Medical Bilateral Group LEEP procedure of [id number] [facility] cervix LEEP procedure of [id number] [facility] LEEP procedure of [id number] [facility] LEEP procedure of [id number] [facility]
--- OUTSIDE RECORDS SUMMARY | 2017-11-01 10:16 | XMS REPORT | CCD ---
:1980 Author Organization [facility] [place] [facility] Care Team Providers Name Role Phone Kyaw Kasper Consulting Provider Allergies, Adverse Reactions, Alerts Substance Reaction Status NKDA Active Problem List Condition Effective Dates Status Abdominal pain 02/01/2011 Active Medications Medication Instructions Start Date End Date Status clonidine 0.2 mg oral 0.2 mg, 1 tab, Route: PO, 08/27/2011 08/27/2011 Completed tablet Drug form: TAB, ONCE, Start date: 08/27/11 20:09:00, Stop date: 08/27/11 20:09:00 clonidine 0.1 mg oral 0.1 mg, PO, TID, 3 tab, 08/27/2011 Ordered tablet Substitution Allowed clonidine 0.2 mg oral 0.2 mg, PO, BID, 2 tab, 08/27/2011 Ordered tablet Substitution Allowed Vital Signs Most recent to oldest [Reference Range]: 1 Height 162.56 cm (08/27/2011 18:00:00) Weight 67.727 kg (08/27/2011 18:00:00)
--- OUTSIDE RECORDS SUMMARY | 2017-11-01 10:16 | XMS REPORT | CCD ---
:1980 Author Organization [facility] Care Team Providers Name Role Phone Kyaw Kasper Consulting Provider Allergies, Adverse Reactions, Alerts Substance Reaction Status NKDA Active Problem List Condition Effective Dates Status Abdominal pain 02/01/2011 Active Medications Medication Instructions Start Date End Date Status Zofran ODT 4 mg, 1 tab, Route: PO, Drug 10/05/2012 10/05/2012 Completed form: TABDIS, ONCE, Dosing Weight 61.364, kg, Priority: STAT, Start date: 10/05/12 9:51:00, Stop date: 10/05/12 9:51:00 [place] 10/325 oral tablet 1 tab, Route: PO, Drug Form: 10/05/2012 10/05/2012 Completed TAB, Dosing Weight 61.364, kg, ONCE, Start date: 10/05/12 9:50:00, Stop date: 10/05/12 9:50:00 [place] 5/325 oral tablet 1-2 tab, PO, Q4-6H, PRN, 15 10/05/2012 10/10/2012 Ordered tab, Pain, Substitution Allowed, Maintenance Vital Signs Most recent to oldest [Reference Range]: 1 Height 162.56 cm (10/05/2012 09:02:00) Weight 61.364 kg (10/05/2012 09:02:00) Results URINALYSIS Most recent to oldest [Reference Range]: 1 UA Turbidity [Clear] Clear (10/05/2012 09:28:00) UA Color [Yellow] Yellow *NA* (10/05/2012 09:28:00) UA pH [5.0-8.0] 6.0 (10/05/2012 09:28:00) UA Spec Grav [<=1.030] 1.025 (10/05/2012 09:28:00) UA Glucose [Negative] Negative (10/05/2012 09:28:00) UA Blood [Negative] Large *ABN* (10/05/2012 09:28:00) UA Ketones [Negative] Negative *NA* (10/05/2012 09:28:00) UA Protein [Negative] Negative (10/05/2012 09:28:00) UA Urobilinogen [0.1-1.0 EU/dL] 0.2 EU/dL (10/05/2012 09:28:00) UA Bili [Negative] Negative *NA* (10/05/2012:28:00) UA Leuk Est [Negative] Negative (10/05/2012:28:00) UA Nitrite [Negative] Negative (10/05/2012 09:28:00) UA WBC [None Seen /HPF] 0-2 /HPF (10/05/2012:28:00) UA RBC [0-2 /HPF] 21-50 /HPF *ABN* (10/05/2012:28:00) UA Bacteria [None Seen] None Seen (10/05/2012:28:00) UA Sq Epi [Few /LPF] Occasional /LPF (10/05/2012:28:00) Micro? Performed (10/05/2012 09:28:00) CHEMISTRY Most recent to oldest [Reference Range]: 1 U Preg [Negative] Negative (10/05/2012 09:28:00) Procedures Procedures Date Related Diagnosis LEEP procedure of cervix
--- OUTSIDE RECORDS SUMMARY | 2017-11-01 10:16 | XMS REPORT | CCD ---
:1980 Author Organization [facility] Care Team Providers Name Role Phone Melinda Calhoun Consulting Provider Allergies, Adverse Reactions, Alerts Substance Reaction Status NKDA Active Problem List Condition Effective Dates Status Abdominal pain 02/01/2011 Active Anxiety Active Ovarian cyst Resolved Medications Medication Instructions Start Date End Date Status ibuprofen 800 mg oral 800 mg, 1 tab, PO, Q8H, PRN, Take with food, 30 tab, Fever or Pain, Substitution Allowed 12/05/2012 12/15/2012 Ordered tablet Take with food [place] 5/325 oral tablet 1-2 tab, PO, Q4-6H, PRN, 15 12/05/2012 12/10/2012 Ordered tab, Pain, Substitution Allowed, Maintenance ibuprofen 800 mg, Route: PO, Drug 12/05/2012 12/05/2012 Completed form: TAB, ONCE, Dosing Weight 59.091, kg, Priority: STAT, Start date: 12/05/12 13:59:00, Stop date: 12/05/12 13:59:00 [place] 5/325 oral tablet 1 tab, Route: PO, Dosing Weight 59.091, kg, ONCE, Start date: 12/05/12 13:59:00, Stop date: 12/05/12 13:59:00, 12/05/2012 12/05/2012 Completed Vital Signs Most recent to oldest [Reference 1 2 Range]: Height 162.56 cm (12/05/2012 12:27:00) Temperature Oral [96.4-99.1 DegF] 98.2 DegF 98.2 DegF (12/05/2012 14:43:00) (12/05/2012 12:27:00) Systolic Blood Pressure [90-140 mmHg] 115 mmHg 114 mmHg (12/05/2012 14:43:00) (12/05/2012 12:27:00) Diastolic Blood Pressure [60-90 mmHg] 75 mmHg 75 mmHg (12/05/2012 14:43:00) (12/05/2012 12:27:00) Respiratory Rate [14-20 BRMIN] 18 BRMIN 16 BRMIN (12/05/2012 14:43:00) (12/05/2012 12:27:00) Peripheral Pulse Rate [60-100 bpm] 56 bpm 68 bpm *LOW* (12/05/2012 12:27:00) (12/05/2012 14:43:00) Weight 59.091 kg (12/05/2012 12:27:00)
--- OUTSIDE RECORDS SUMMARY | 2017-11-01 10:16 | XMS REPORT | Continuity of Care Document ---
:1980 Author Organization [facility] Care Team Providers Name Role Phone MD Peterson, Sangeetha Unavailable Unavailable Insurance Providers Payer name Policy type / Policy ID Covered constitution party ID Policy Felipe Coverage type MEDICARE [id number]: [id number] Encounters Encounter Performer Location Date Lab Report Sangeetha Winkler MD [facility] [place] Oct 02, 2013 Problems Problem Effective Dates Problem Status ANXIETY Sep 01, 2013 Active MIGRAINE - UNSPECIFIED WITHOUT MENTION OF INTRACTABLE Sep 01, 2013 Active MAJOR DEPRESSIVE DISORDER, RECURRENT EPISODE, Sep 01, 2013 Active UNSPECIFIED DEGREE INSOMNIA, CHRONIC Sep 01, 2013 Active LOW BACK PAIN Sep 01, 2013 Active Procedures Date Description Comments Mar 12, 2011 mammogram Normal Bilateral Mar 12, 2011 vaginal Pap smear results Normal Sep 01, 2013 smoking/tobacco cessation, patient education and yes counseling Medications Medication Instructions Start Date Status CLONAZEPAM 1 MG TABS 1 tab po tid Sep 01, 2013 Active CELEXA 40 MG TABS 1 po qday Sep 01, 2013 Active DOXEPIN HCL 50 MG CAPS 1 po qhs Sep 01, 2013 Active Vital Signs Date Description Test Result Sep 01, 2013 height E&M HEIGHT 64 in Sep 01, 2013 weight E&M WEIGHT 122 lb Sep 01, 2013 temperature E&M TEMPERATURE 97.9 deg f Sep 01, 2013 respiratory rate E&M RESP RATE 16 /min Sep 01, 2013 pulse rate E&M PULSE RATE 84 /min Sep 01, 2013 blood pressure, systolic BP SYSTOLIC 91 mm Hg Sep 01, 2013 blood pressure, diastolic BP DIASTOLIC 55 mm Hg Results Date Description Test Name Value Reference Interpretation Status Mar 12, 2011 vaginal Pap smear PAP SMEAR Normal null results
--- OUTSIDE RECORDS SUMMARY | 2017-11-01 10:16 | XMS REPORT | CCD ---
:1980 Author Organization [facility] Care Team Providers Name Role Phone Melinda Calhoun Consulting Provider Allergies, Adverse Reactions, Alerts Substance Reaction Status NKDA Active Problem List Condition Effective Dates Status Abdominal pain 02/01/2011 Active Anxiety Active Ovarian cyst Resolved Medications Medication Instructions Start Date End Date Status [place] 5/325 oral tablet 2 tab, Route: PO, Drug Form: 11/05/2012 11/05/2012 Completed TAB, Dosing Weight 60, kg, ONCE, STAT, Start date: 11/05/12 8:20:00, Stop date: 11/05/12 8:20:00 [place] 5/325 oral tablet 1-2 tab, PO, Q4-6H, PRN, 30 11/05/2012 11/10/2012 Ordered tab, Pain, Substitution Allowed, Maintenance Vital Signs Most recent to oldest [Reference 1 2 Range]: Height 162.56 cm (11/05/2012 08:03:00) Temperature Oral [96.4-99.1 DegF] 98.1 DegF 97.1 DegF (11/05/2012 10:19:00) (11/05/2012 08:03:00) Systolic Blood Pressure [90-140 mmHg] 119 mmHg 112 mmHg (11/05/2012 10:19:00) (11/05/2012 08:03:00) Diastolic Blood Pressure [60-90 mmHg] 71 mmHg 77 mmHg (11/05/2012 10:19:00) (11/05/2012 08:03:00) Respiratory Rate [14-20 BRMIN] 18 BRMIN 18 BRMIN (11/05/2012 10:19:00) (11/05/2012 08:03:00) Peripheral Pulse Rate [60-100 bpm] 85 bpm 89 bpm (11/05/2012 10:19:00) (11/05/2012 08:03:00) Weight 60 kg (11/05/2012 08:03:00)
--- OUTSIDE RECORDS SUMMARY | 2017-11-01 10:16 | XMS REPORT | CCD ---
:1980 Author Organization [facility] Care Team Providers Name Role Phone Leatha Aldana Consulting Provider Unavailable Becca Hayes Consulting Provider Unavailable PCP, None Consulting Provider Unavailable Alex Edge Consulting Provider Unavailable Elise Lane Consulting Provider [phone] Elsa Walter Consulting Provider Loni Tapia Consulting Provider [employer], Login Consulting Provider Unavailable Miah Hernandez Consulting Provider [phone] Clari Turner Consulting Provider Unavailable Allergies, Adverse Reactions, Alerts Substance Reaction Status NKDA ?? Active Problem List Condition Effective Dates Status Abdominal pain 02/01/2011 Active Medications Medication Instructions Start Date End Date Status dicloxacillin 250 mg oral 250 mg, 1 cap, PO, Q6H, 02/01/2011 02/11/2011 Ordered capsule 40 cap, Substitution Allowed, CAP Bactroban 2% nasal 1 appl, NASAL, BID, 10 02/01/2011 ?? Ordered ointment w/applicator ea, Substitution Allowed, OINT Neurontin Substitution Allowed 02/01/2011 ?? Ordered Celexa Substitution Allowed 02/01/2011 ?? Ordered dicloxacillin 250 mg, Route: PO, Drug 02/02/2011 02/01/2011 Canceled form: CAP, Q6H, Start date: 02/02/11 0:00:00, Duration: 30 day, Stop date: 03/03/11 18:00:00 Bactroban 2% nasal 1 appl, Route: NASAL, 02/02/2011 02/01/2011 Canceled ointment w/applicator BID, Start date: 02/02/11 9:00:00, Duration: 30 day, Stop date: 03/03/11 17:00:00 Sodium Chloride 0.9% 1,000 mL, Rate: 1,000 02/01/2011 02/01/2011 Discontinued (Bolus) IV 1,000 mL ml/hr, Infuse over: 1 hr, Route: IV, Total Volume: 1,000, Bolus Dose, Priority: STAT, Start date: 02/01/11 16:45:00, Duration: 1 doses or times, Stop date: 02/01/11 17:44:00 hydrocortisone topical 1% 1 appl, TOP, BID, 30 gm, Substitution Allowed, apply a thin layer to the affected area 02/01/2011 ?? Ordered cream apply a thin layer to the affected area Vital Signs Most recent to oldest 1 2 3 [Reference Range]: Height 162.56 cm ? (02/01/2011 14:40:00) ?? Temperature Oral 99.1 DegF ? [96.4-99.1 DegF] (02/01/2011 14:40:00) ?? Systolic Blood Pressure 100 mmHg 116 mmHg 108 mmHg [90-140 mmHg] (02/01/2011 16:39:00) ?? (02/01/2011 15:53:00) ?? (02/01/2011 14:40:00) ?? Diastolic Blood Pressure 69 mmHg 67 mmHg 65 mmHg [60-90 mmHg] (02/01/2011 16:39:00) ?? (02/01/2011 15:53:00) ?? (02/01/2011 14:40:00) ?? Respiratory Rate [14-20 18 BRMIN 20 BRMIN ?? BRMIN] (02/01/2011 15:53:00) ?? (02/01/2011 14:40:00) ?? Peripheral Pulse Rate 66 bpm 71 bpm 79 bpm [60-100 bpm] (02/01/2011 16:39:00) ?? (02/01/2011 15:53:00) ?? (02/01/2011 14:40:00) ?? Weight 62.727 kg ? (02/01/2011 14:40:00) ??
--- OUTSIDE RECORDS SUMMARY | 2017-11-01 10:16 | XMS REPORT | Summary of Care ---
:1980 Author Encounter Dates Location Diagnoses Discharge Providers Disposition 05/23/2013 - [facility] Ayesha Garvey 05/23/[address] [place] [address] Diagnosis: Painful [place], [place] [address]- , [place] tongue Reason for Visit LUMPS ON TONGUE Vital Signs Most recent to oldest [Reference 1 2 Range]: Height 162.56 cm (05/23/2013 04:02:00 [facility]) Temperature Oral [96.4-99.1 DegF] 98.2 DegF 98.0 DegF (05/23/2013 06:27:00 [facility]) (05/23/2013 04:02:00 [facility]) Systolic Blood Pressure [90-140 108 mmHg 104 mmHg mmHg] (05/23/2013 06:27:00 [facility]) (05/23/2013 04:02:00 [facility] [place]) Diastolic Blood Pressure [60-90 65 mmHg 65 mmHg mmHg] (05/23/2013 06:27:00 [facility]) (05/23/2013 04:02:00 [facility] [place]) Respiratory Rate [14-20 BRMIN] 18 BRMIN 16 BRMIN (05/23/2013 06:27:00 [facility]) (05/23/2013 04:02:00 [facility]) Peripheral Pulse Rate [60-100 90 bpm 94 bpm bpm] (05/23/2013 06:27:00 [facility]) (05/23/2013 04:02:00 [facility] [place]) Weight 53.182 kg (05/23/2013 04:02:00 [facility]) Body Mass Index 20.13 m2 (05/23/2013 04:02:00 [facility]) Problem List Condition Effective Dates Status Health Status Informant Abdominal pain(Confirmed) 02/01/2011 Active Anxiety(Confirmed) Active Hepatitis C(Confirmed) Resolved Ovarian cyst(Confirmed) Resolved Allergies, Adverse Reactions, Alerts Substance Reaction Severity Status NKDA Active Medications Medication Instructions Start Date Stop Date Status acetaminophen-hydrocodone 1 tab, Route: PO, Dosing 05/23/2013 05/23/2013 Completed 325 mg-5 mg oral tablet Weight 53.182, kg, ONCE, STAT, Start date: 05/23/13 5:51:00, Stop date: 05/23/13 5:51:00 Magic Mouth Wash 5 ml, S&SPIT, QID, Pain, # 05/23/2013 Ordered (Maalox/Carafate/Bendryl)1 180 ml, 0 Refill(s) :1:1 tramadol 50 mg oral tablet 50 mg=1 tab, PO, Q6H, Pain, 05/23/20132013 Ordered # 40 tab, 0 Refill(s) Medications Administered During Your Visit No data available for this section Immunizations No data available for this section Social History Social History Type Response Smoking Status Use: Current every day smoker. Type: Cigarettes. Tobacco smoke exposure: None. Did the Patient Smoke Cigarettes Anytime During the Last 365 Days? Yes. Cessation Counseling Provided? Yes.
--- OUTSIDE RECORDS SUMMARY | 2017-11-01 10:16 | XMS REPORT | CCD ---
:1980 Author Organization [facility] Care Team Providers Name Role Phone Naomi Walterrosette [place] Consulting Provider Allergies, Adverse Reactions, Alerts Substance Reaction Status NKDA Active Problem List Condition Effective Dates Status Abdominal pain 02/01/2011 Active Ovarian cyst Resolved Medications Medication Instructions Start Date End Date Status Motrin 600 mg, Route: PO, Drug form: TAB, ONCE, 10/21/2012 10/21/2012 Completed Dosing Weight 60.909, kg, Priority: STAT, Start date: 10/21/12 17:36:00, Stop date: 10/21/12 17:36:00 Vital Signs Most recent to oldest [Reference Range]: 1 Height 162.56 cm (10/21/2012 13:14:00) Weight 60.909 kg (10/21/2012 13:14:00) Results URINALYSIS Most recent to oldest [Reference Range]: 1 UA Turbidity [Clear] Cloudy *ABN* (10/21/2012 16:16:00) UA Color [Yellow] Yellow *NA* (10/21/2012 16:16:00) UA pH [5.0-8.0] 6.0 (10/21/2012 16:16:00) UA Spec Grav [<=1.030] 1.030 (10/21/2012 16:16:00) UA Glucose [Negative] Negative (10/21/2012 16:16:00) UA Blood [Negative] Negative (10/21/2012 16:16:00) UA Ketones [Negative] Trace *ABN* (10/21/2012 16:16:00) UA Protein [Negative] Negative (10/21/2012 16:16:00) UA Urobilinogen [0.1-1.0 EU/dL] 0.2 EU/dL (10/21/2012 16:16:00) UA Bili [Negative] Small 1 *ABN* (10/21/2012 16:16:00) UA Leuk Est [Negative] Negative (10/21/2012 16:16:00) UA Nitrite [Negative] Negative (10/21/2012 16:16:00) UA WBC [None Seen /HPF] 3-5 /HPF (10/21/2012 16:16:00) UA RBC 1-3 *NA* (10/21/2012 16:16:00) UA Bacteria [None Seen /HPF] Moderate /HPF (10/21/2012 16:16:00) UA Sq Epi [Few /LPF] Moderate /LPF *ABN* (10/21/2012 16:16:00) UA Mucus [None Seen /LPF] Many /LPF *ABN* (10/21/2012 16:16:00) Micro? Performed (10/21/2012 16:16:00) 1Result Comment: Interpret positive bilirubin results with caution. Confirmatory testing not possible due to the unavailability of reagent. Correlation with serum chemistry results recommended.CHEMISTRY Most recent to oldest [Reference Range]: 1 U Preg [Negative] Negative (10/21/2012 16:16:00)
--- OUTSIDE RECORDS SUMMARY | 2017-11-01 10:17 | XMS REPORT | Summary of Care ---
:1980 Author Encounter CLINTON Henry(MARIZA) [id number] Date(s): 07/24/13 - 07/24/[address] Discharge Diagnosis: Cellulitis of hand, right Discharge Disposition: Home Physician Attending: Negar Cleveland MD Reason for Visit POSSIBLE FX RIGHT WRIST/REFILL MEDICATION Vital Signs Most recent to oldest 1 2 3 [Reference Range]: Height 162.56 cm (07/24/13 2:59 PM) Temperature Oral [96.4-99.1 99.0 DegF 99.1 DegF DegF] (07/24/13 6:16 PM) (07/24/13 2:59 PM) Systolic Blood Pressure [90-140 114 mmHg 120 mmHg 116 mmHg mmHg] (07/24/13 6:16 PM) (07/24/13 5:20 PM) (07/24/13 4:30 PM) Diastolic Blood Pressure [60-90 76 mmHg 80 mmHg 72 mmHg mmHg] (07/24/13 6:16 PM) (07/24/13 5:20 PM) (07/24/13 4:30 PM) Respiratory Rate [14-20 BRMIN] 18 BRMIN 18 BRMIN 18 BRMIN (07/24/13 6:16 PM) (07/24/13 5:20 PM) (07/24/13 4:30 PM) Peripheral Pulse Rate [60-100 79 bpm 86 bpm 84 bpm bpm] (07/24/13 6:16 PM) (07/24/13 5:20 PM) (07/24/13 4:30 PM) Weight 54.545 kg (07/24/13 2:59 PM) Body Mass Index 20.64 m2 (07/24/13 2:59 PM) Problem List Condition Effective Dates Status Health Status Informant Abdominal pain(Confirmed) 02/01/11 Active Anxiety(Confirmed) Active Hepatitis C(Confirmed) Resolved Ovarian cyst(Confirmed) Resolved Allergies, Adverse Reactions, Alerts Substance Reaction Severity Status NKDA Active Medications Ativan 1 mg, Route: IVP, Drug form: INJ, ONCE, Dosing Weight 54.545, kg, Priority: STAT , Start date: 07/24/13 16:39:00, Stop date: 07/24/13 16:39:00 Start Date: 07/24/13 Stop Date: 07/24/13 Status: Completedclindamycin 900 mg, 6 mL, Route: IVPB, Drug form: INJ, ONCE, Dosing Weight 54.545, kg, Priority: STAT, Start date: 07/24/13 16:00:00, Stop date: 07/24/13 16:00:00 Notes: (Same As: Cleocin) Start Date: 07/24/13 Stop Date: 07/24/13 Status: Completedclindamycin 300 mg oral capsule 300 mg=1 cap, PO, Q6H, # 40 cap, 0 Refill(s) Start Date: 07/24/13 Stop Date: 08/03/13 Status: OrderedclonazePAM 1 mg oral tablet 1 mg=1 tab, PO, TID, # 3 tab, 0 Refill(s) Start Date: 07/24/13 Status: OrderedNorco 10/325 oral tablet 1-2 tab, PO, Q4-6H, Pain, # 5 tab, 0 Refill(s) Start Date: 07/24/13 Stop Date: 07/29/13 Status: OrderedNorco 10/325 oral tablet 1 tab, Route: PO, Drug Form: TAB, Dosing Weight 54.545, kg, ONCE, Start date: 17:46:00, Stop date: 07/24/13 17:46:00 Notes: Do not exceed 4gm/day of acetaminophen. (Same as: [place] 325/10) Start Date: 07/24/13 Stop Date: 07/24/13 Status: CompletedUltram 50 mg oral tablet 50 mg, 1 tab, Route: PO, Drug form: TAB, ONCE, Dosing Weight 54.545, kg, Priority: STAT, Start date:07/24/13 15:59:00, Stop date: 07/24/13 15:59:00 Notes: . (Same As: Ultram) Start Date: 07/24/13 Stop Date: 07/24/13 Status: Completed Results ELECTROLYTES Most recent to oldest [Reference Range]: 1 Sodium Lvl [135-145 mEq/L] 141 mEq/L (07/24/13 4:23 PM) Potassium Lvl [3.5-5.1 mEq/L] 3.9 mEq/L (07/24/13 4:23 PM) Chloride Lvl [95-109 mEq/L] 104 mEq/L (07/24/13 4:23 PM) CO2 [24-32 mEq/L] 28 mEq/L (07/24/13 4:23 PM) AGAP [10.0-20.0 mEq/L] 12.9 mEq/L (07/24/13 4:23 PM) CHEM PANEL Most recent to oldest [Reference Range]: 1 Creatinine Lvl [0.5-1.4 mg/dL] 0.8 mg/dL (07/24/13 4:23 PM) eGFR 96 mL/min/1.73m2 1 *NA* (07/24/13 4:23 PM) BUN [7-22 mg/dL] 13 mg/dL (07/24/13 4:23 PM) Glucose Lvl [70-99 mg/dL] 78 mg/dL 2 (07/24/13 4:23 PM) Calcium Lvl [8.5-10.5 mg/dL] 8.9 mg/dL (07/24/13 4:23 PM) 1Result Comment: The eGFR is calculated using the CKD-EPI formula. In most young , healthy individualsthe eGFR will be >90 mL/min/1.73m2. The eGFR declines with age. An eGFR of 60-89 may be normal in some populations, particularly the elderly, for whom the CKD-EPI formula has not been extensively validated. Use of the eGFR is not recommended in the following populations: Individuals with unstable creatinine concentrations, including patients and those with serious co-morbid conditions. Patients with extremes in muscle mass or diet. The data above are obtained from the National Kidney Disease Education Program ( NKDEP) which additionally recommends that when the eGFR is used in patients with extremes of body mass index for purposesof drug dosing, the eGFR should be multiplied by the estimated BMI.2Interpretive Data: Adult reference range values reflect the clinical guidelines of the [place] [employer].HEMATOLOGY Most recent to oldest [Reference Range]: 1 WBC [3.7-10.4 K/CMM] 10.2 K/CMM (07/24/13 4:33 PM) RBC [4.20-5.40 M/CMM] 4.14 M/CMM *LOW* (07/24/13 4:33 PM) Hgb [12.0-16.0 g/dL] 13.4 g/dL (07/24/13 4:33 PM) Hct [36.0-48.0 %] 39.0 % (07/24/13 4:33 PM) MCV [81.0-99.0 fL] 94.1 fL (07/24/13 4:33 PM) MCH [27.0-31.0 pg] 32.4 pg *HI* (07/24/13 4:33 PM) MCHC [32.0-36.0 g/dL] 34.4 g/dL (07/24/13 4:33 PM) RDW [11.5-14.5 %] 12.0 % (07/24/13 4:33 PM) Platelet [133-450 K/CMM] 250 K/CMM (07/24/13 4:33 PM) MPV [7.4-10.4 fL] 7.7 fL (07/24/13 4:33 PM) Segs [45.0-75.0 %] 74.5 % (07/24/13 4:33 PM) Lymphocytes [20.0-40.0 %] 19.2 % *LOW* (07/24/13 4:33 PM) Monocytes [2.0-12.0 %] 5.6 % (07/24/13 4:33 PM) Eosinophils [0.0-4.0 %] 0.4 % (07/24/13 4:33 PM) Basophils [0.0-1.0 %] 0.3 % (07/24/13 4:33 PM) Segs-Bands # [1.5-8.1 K/CMM] 7.6 K/CMM (07/24/13 4:33 PM) Lymphocytes # [1.0-5.5 K/CMM] 2.0 K/CMM (07/24/13 4:33 PM) Monocytes # [0.0-0.8 K/CMM] 0.6 K/CMM (07/24/13 4:33 PM) Eosinophils # [0.0-0.5 K/CMM] 0.0 K/CMM (07/24/13 4:33 PM) Basophils # [0.0-0.2 K/CMM] 0.0 K/CMM (07/24/13 4:33 PM) RBC Morph Normal (07/24/13 4:33 PM) Plt Morph Normal (07/24/13 4:33 PM) Medications Administered During Your Visit No data available for this section Immunizations No data available for this section Social History Social History Type Response Smoking Status Current every day smoker, Type: Cigarettes, Exposure to Tobacco Smoke None, Cigarette Smoking Last 365 Days Yes, Reg Smoking Cessation Counseling Yes
--- OUTSIDE RECORDS SUMMARY | 2017-11-01 10:17 | XMS REPORT | Summary of Care ---
:1980 Author Encounter CLINTON Henry(MARIZA) [id number] Date(s): 07/24/13 - 07/25/[address] Discharge Diagnosis: Cellulitis Discharge Disposition: Home Physician Attending: Sandy Zambrano MD Reason for Visit RIGHT HAND PAIN Vital Signs Most recent to oldest 1 2 3 [Reference Range]: Height 162.56 cm (07/24/13 8:45 PM) Temperature Oral [96.4-99.1 98.4 DegF 98.3 DegF 98.6 DegF DegF] (07/25/13 3:17 AM) (07/24/13 10:38 PM) (07/24/13 8:45 PM) Systolic Blood Pressure 105 mmHg 112 mmHg 100 mmHg [90-140 mmHg] (07/25/13 3:17 AM) (07/24/13 10:38 PM) (07/24/13 8:45 PM) Diastolic Blood Pressure 64 mmHg 63 mmHg 68 mmHg [60-90 mmHg] (07/25/13 3:17 AM) (07/24/13 10:38 PM) (07/24/13 8:45 PM) Respiratory Rate [14-20 BRMIN] 19 BRMIN 18 BRMIN 18 BRMIN (07/25/13 3:17 AM) (07/24/13 10:38 PM) (07/24/13 8:45 PM) Peripheral Pulse Rate [60-100 83 bpm 83 bpm 101 bpm bpm] (07/25/13 3:17 AM) (07/24/13 10:38 PM) *HI* (07/24/13 8:45 PM) Weight 54.545 kg (07/24/13 8:45 PM) Body Mass Index 20.64 m2 (07/24/13 8:45 PM) Problem List Condition Effective Dates Status Health Status Informant Abdominal pain(Confirmed) 02/01/11 Active Anxiety(Confirmed) Active Hepatitis C(Confirmed) Resolved Ovarian cyst(Confirmed) Resolved Allergies, Adverse Reactions, Alerts Substance Reaction Severity Status NKDA Active Medications clindamycin 300 mg, 2 cap, Route: PO, Drug form: CAP, ONCE, Dosing Weight 54.545, kg, Priority: STAT, Start date: 07/25/13 1:31:00, Stop date: 07/25/13 1:31:00 Notes: (Same As: Cleocin) Start Date: 07/25/13 Stop Date: 07/25/13 Status: CompletedclonazePAM 0.25 mg, 0.5 tab, Route: PO, Drug form: TAB, ONCE, Dosing Weight 54.545, kg, Start date: 07/25/13 1:31:00, Stop date: 07/25/13 1:31:00 Notes: (Same As: KlonoPIN) Start Date: 07/25/13 Stop Date: 07/25/13 Status: CompletedNorco 5/325 oral tablet 1 tab, Route: PO, Drug Form: TAB, Dosing Weight 54.545, kg, ONCE, Start date: 1:31:00, Stopdate: 07/25/13 1:31:00, Special Instructions: Notes: (Same as: [place] 325/5) Start Date: 07/25/13 Stop Date: 07/25/13 Status: CompletedNorco 5/325 oral tablet 1 tab, Route: PO, Dosing Weight 54.545, kg, ONCE, STAT, Start date: 07/25/13 0: 04:00, Stop date: 07/25/13 0:04:00 Start Date: 07/25/13 Stop Date: 07/25/13 Status: Completed Medications Administered During Your Visit No data available for this section Immunizations No data available for this section Social History Social History Type Response Smoking Status Current every day smoker, Type: Cigarettes, Exposure to Tobacco Smoke None, Cigarette Smoking Last 365 Days Yes, Reg Smoking Cessation Counseling Yes
--- OUTSIDE RECORDS SUMMARY | 2017-11-01 10:17 | XMS REPORT | Summary of Care ---
:1980 Author Encounter CLINTON Henry(MARIZA) [id number] Date(s): 07/10/13 - 07/10/[address] Discharge Diagnosis: Anxiety Discharge Disposition: Home Physician Attending: Richard Hill MD Reason for Visit OTHER Vital Signs Most recent to oldest [Reference Range]: 1 2 Height 162.56 cm (07/10/13 9:39 AM) Temperature Oral [96.4-99.1 DegF] 98.7 DegF 99.0 DegF (07/10/13 11:27 AM) (07/10/13 9:39 AM) Systolic Blood Pressure [90-140 mmHg] 122 mmHg 127 mmHg (07/10/13 11:27 AM) (07/10/13 9:39 AM) Diastolic Blood Pressure [60-90 mmHg] 77 mmHg 85 mmHg (07/10/13 11:27 AM) (07/10/13 9:39 AM) Respiratory Rate [14-20 BRMIN] 18 BRMIN 18 BRMIN (07/10/13 11:27 AM) (07/10/13 9:39 AM) Peripheral Pulse Rate [60-100 bpm] 80 bpm 77 bpm (07/10/13 11:27 AM) (07/10/13 9:39 AM) Weight 52.273 kg (07/10/13 9:39 AM) Body Mass Index 19.78 m2 (07/10/13 9:39 AM) Problem List Condition Effective Dates Status Health Status Informant Abdominal pain(Confirmed) 02/01/11 Active Anxiety(Confirmed) Active Hepatitis C(Confirmed) Resolved Ovarian cyst(Confirmed) Resolved Allergies, Adverse Reactions, Alerts Substance Reaction Severity Status NKDA Active Medications Ativan 1 mg, Route: PO, Drug form: TAB, ONCE, Dosing Weight 52.273, kg, Priority: STAT , Start date: 07/10/13 10:49:00, Stop date: 07/10/13 10:49:00 Start Date: 07/10/13 Stop Date: 07/10/13 Status: CompletedclonazePAM 1 mg, Route: PO, ONCE, Dosing Weight 52.273, kg, Start date: 07/10/13 10:40:00, Stop date: 07/10/13 10:40:00 Start Date: 07/10/13 Stop Date: 07/10/13 Status: DiscontinuedclonazePAM 1 mg oral tablet 1 mg=1 tab, PO, TID, # 15 tab, 0 Refill(s) Start Date: 07/10/13 Status: Ordered Medications Administered During Your Visit No data available for this section Immunizations No data available for this section Social History Social History Type Response Smoking Status Current every day smoker, Type: Cigarettes, Exposure to Tobacco Smoke None, Cigarette Smoking Last 365 Days Yes, Reg Smoking Cessation Counseling Yes
--- OUTSIDE RECORDS SUMMARY | 2017-11-01 10:17 | XMS REPORT | Summary of Care ---
:1980 Author Encounter CLINTON Henry(MARIZA) [id number] Date(s): 06/28/13 - 06/28/[address] Discharge Diagnosis: Opioid withdrawal Discharge Disposition: Home Physician Attending: Elsa Walter Reason for Visit WITHDRAWL SYMPTOMS Vital Signs Most recent to oldest [Reference Range]: 1 2 Height 162.56 cm (06/28/13 8:04 AM) Temperature Oral [96.4-99.1 DegF] 98.4 DegF (06/28/13 8:04 AM) Systolic Blood Pressure [90-140 mmHg] 115 mmHg 112 mmHg (06/28/13 8:55 AM) (06/28/13 8:04 AM) Diastolic Blood Pressure [60-90 mmHg] 70 mmHg 76 mmHg (06/28/13 8:55 AM) (06/28/13 8:04 AM) Respiratory Rate [14-20 BRMIN] 16 BRMIN 16 BRMIN (06/28/13 8:55 AM) (06/28/13 8:04 AM) Peripheral Pulse Rate [60-100 bpm] 90 bpm 91 bpm (06/28/13 8:55 AM) (06/28/13 8:04 AM) Weight 53.182 kg (06/28/13 8:04 AM) Body Mass Index 20.13 m2 (06/28/13 8:04 AM) Problem List Condition Effective Dates Status Health Status Informant Abdominal pain(Confirmed) 02/01/11 Active Anxiety(Confirmed) Active Hepatitis C(Confirmed) Resolved Ovarian cyst(Confirmed) Resolved Allergies, Adverse Reactions, Alerts Substance Reaction Severity Status NKDA Active Medications [place] 5/325 oral tablet 1 tab, PO, Q6H, for pain, rhinorrhea, agitation, anxiety, # 12 tab, 0 Refill(s) Start Date: 06/28/13 Stop Date: 07/01/13 Status: OrderedSubutex 6 mg, 0 Refill(s) Start Date: 06/28/13 Status: Ordered Medications Administered During Your Visit No data available for this section Immunizations No data available for this section Social History Social History Type Response Smoking Status Current every day smoker, Type: Cigarettes, Exposure to Tobacco Smoke None, Cigarette Smoking Last 365 Days Yes, Reg Smoking Cessation Counseling Yes
--- OUTSIDE RECORDS SUMMARY | 2017-11-01 10:17 | XMS REPORT | Summary of Care ---
:1980 Author Encounter CLINTON Henry(MARIZA) [id number] Date(s): 07/30/13 - 07/31/[address] Discharge Diagnosis: Anxiety Discharge Disposition: Home Physician Attending: Negar Cleveland MD Reason for Visit ANXIETY Vital Signs Most recent to oldest 1 2 3 [Reference Range]: Height 162.56 cm (07/30/13 5:50 PM) Temperature Oral [96.4-99.1 97.9 DegF 98.5 DegF 98.4 DegF DegF] (07/30/13 11:58 PM) (07/30/13 8:46 PM) (07/30/13 5:50 PM) Systolic Blood Pressure 113 mmHg 107 mmHg 109 mmHg [90-140 mmHg] (07/30/13 11:58 PM) (07/30/13 8:46 PM) (07/30/13 5:50 PM) Diastolic Blood Pressure 75 mmHg 67 mmHg 65 mmHg [60-90 mmHg] (07/30/13 11:58 PM) (07/30/13 8:46 PM) (07/30/13 5:50 PM) Respiratory Rate [14-20 BRMIN] 16 BRMIN 18 BRMIN 18 BRMIN (07/30/13 11:58 PM) (07/30/13 8:46 PM) (07/30/13 5:50 PM) Peripheral Pulse Rate [60-100 85 bpm 101 bpm 78 bpm bpm] (07/30/13 11:58 PM) *HI* (07/30/13 5:50 PM) (07/30/13 8:46 PM) Weight 53.182 kg (07/30/13 5:50 PM) Body Mass Index 20.13 m2 (07/30/13 5:50 PM) Problem List Condition Effective Dates Status Health Status Informant Abdominal pain(Confirmed) 11/23/11 Active Anxiety(Confirmed) Active Hepatitis C(Confirmed) Resolved Ovarian cyst(Confirmed) Resolved Allergies, Adverse Reactions, Alerts Substance Reaction Severity Status NKDA Active Medications KlonoPIN 1 mg oral tablet 1 mg=1 tab, PO, TID, # 4 tab, 0 Refill(s) Start Date: 07/31/13 Status: OrderedKlonoPIN 1 mg oral tablet 1 mg=1 tab, PO, TID, # 3 tab, 0 Refill(s) Start Date: 07/31/13 Stop Date: 07/31/13 Status: Discontinued Medications Administered During Your Visit No data available for this section Immunizations No data available for this section Social History Social History Type Response Smoking Status Current every day smoker, Type: Cigarettes, Exposure to Tobacco Smoke None, Cigarette Smoking Last 365 Days Yes, Reg Smoking Cessation Counseling Yes
--- OUTSIDE RECORDS SUMMARY | 2017-11-01 10:17 | XMS REPORT | Summary of Care ---
:1980 Author Encounter CLINTON Henry(MARIZA) [id number] Date(s): 08/03/13 - 08/03/[address] Discharge Diagnosis: Anxiety Discharge Disposition: Home Physician Attending: Patrick Cleaning MD Reason for Visit ANXIETY Vital Signs Most recent to oldest [Reference Range]: 1 2 Height 162.56 cm (08/03/13 7:07 AM) Temperature Oral [96.4-99.1 DegF] 97.6 DegF 98.0 DegF (08/03/13 10:33 AM) (08/03/13 7:07 AM) Systolic Blood Pressure [90-140 mmHg] 114 mmHg 107 mmHg (08/03/13 10:33 AM) (08/03/13 7:07 AM) Diastolic Blood Pressure [60-90 mmHg] 81 mmHg 72 mmHg (08/03/13 10:33 AM) (08/03/13 7:07 AM) Respiratory Rate [14-20 BRMIN] 18 BRMIN 18 BRMIN (08/03/13 10:33 AM) (08/03/13 7:07 AM) Peripheral Pulse Rate [60-100 bpm] 80 bpm 94 bpm (08/03/13 10:33 AM) (08/03/13 7:07 AM) Weight 54.545 kg (08/03/13 7:07 AM) Body Mass Index 20.64 m2 (08/03/13 7:07 AM) Problem List Condition Effective Dates Status Health Status Informant Abdominal pain(Confirmed) 02/01/11 Active Anxiety(Confirmed) Active Hepatitis C(Confirmed) Resolved Ovarian cyst(Confirmed) Resolved Allergies, Adverse Reactions, Alerts Substance Reaction Severity Status NKDA Active Medications clonazePAM 1 mg, 1 tab, Route: PO, Drug form: TAB, TID, Dosing Weight 54.545, kg, Start date: 08/03/13 13:00:00, Stop date: 09/02/13 9:00:00 Notes: (Same As: KlonoPIN) Start Date: 08/03/13 Stop Date: 08/03/13 Status: CanceledclonazePAM 1 mg oral tablet 1 mg=1 tab, PO, TID, # 15 tab, 0 Refill(s) Start Date: 08/03/13 Status: Ordered Medications Administered During Your Visit No data available for this section Immunizations No data available for this section Social History Social History Type Response Smoking Status Current every day smoker, Type: Cigarettes, Exposure to Tobacco Smoke None, Cigarette Smoking Last 365 Days Yes, Reg Smoking Cessation Counseling Yes
--- OUTSIDE RECORDS SUMMARY | 2017-11-01 10:17 | XMS REPORT | Summary of Care ---
:1980 Author Encounter CLINTON Henry(MARIZA) [id number] Date(s): 06/29/13 - 06/30/[address] Discharge Diagnosis: Hordeolum externum of left eye Discharge Diagnosis: Withdrawal from opioids Discharge Disposition: Home Physician Attending: Ayesha Garvey MD Reason for Visit WITHDRAWAL, EYE INFECTION Vital Signs Most recent to oldest [Reference Range]: 1 2 Height 162.56 cm (06/29/13 10:50 PM) Temperature Oral [96.4-99.1 DegF] 98.2 DegF 98.2 DegF (06/30/13 2:18 AM) (06/29/13 10:50 PM) Systolic Blood Pressure [90-140 mmHg] 115 mmHg 116 mmHg (06/30/13 2:18 AM) (06/29/13 10:50 PM) Diastolic Blood Pressure [60-90 mmHg] 78 mmHg 74 mmHg (06/30/13 2:18 AM) (06/29/13 10:50 PM) Respiratory Rate [14-20 BRMIN] 16 BRMIN 18 BRMIN (06/30/13 2:18 AM) (06/29/13 10:50 PM) Peripheral Pulse Rate [60-100 bpm] 70 bpm 78 bpm (06/30/13 2:18 AM) (06/29/13 10:50 PM) Weight 53.182 kg (06/29/13 10:50 PM) Body Mass Index 20.13 m2 (06/29/13 10:50 PM) Problem List Condition Effective Dates Status Health Status Informant Abdominal pain(Confirmed) 02/01/11 Active Anxiety(Confirmed) Active Hepatitis C(Confirmed) Resolved Ovarian cyst(Confirmed) Resolved Allergies, Adverse Reactions, Alerts Substance Reaction Severity Status NKDA Active Medications clonazePAM 1 mg oral tablet 1 mg=1 tab, PO, BID, # 14 tab, 0 Refill(s) Start Date: 06/30/13 Status: Orderederythromycin topical 2% ointment 1 appl, TOP, TID, # 30 gm, 0 Refill(s) Start Date: 06/30/13 Status: IncompleteNor[place] 5/325 oral tablet 1 tab, Route: PO, Drug Form: TAB, Dosing Weight 53.182, kg, ONCE, Start date: 0:07:00, Stopdate: 06/30/13 0:07:00 Notes: (Same as: [place] 325/5) Do not exceed 4gm/day of acetaminophen. Start Date: 06/30/13 Stop Date: 06/30/13 Status: Completed Results URINE CHEM Most recent to oldest [Reference Range]: 1 U Preg [Negative] Negative (06/30/13 12:05 AM) URINE AND STOOL Most recent to oldest [Reference Range]: 1 UA Turbidity [Clear] Slight Cloudy (06/30/13 12:05 AM) UA Color [Yellow] Yellow *NA* (06/30/13 12:05 AM) UA pH [5.0-8.0] 7.0 (06/30/13 12:05 AM) UA Spec Grav [<=1.030] 1.015 (06/30/13 12:05 AM) UA Glucose [Negative mg/dL] Negative mg/dL (06/30/13 12:05 AM) UA Blood [Negative] Negative (06/30/13 12:05 AM) UA Ketones [Negative mg/dL] Negative mg/dL *NA* (06/30/13 12:05 AM) UA Protein [Negative mg/dL] Negative mg/dL (06/30/13 12:05 AM) UA Urobilinogen [0.1-1.0 EU/dL] 0.2 EU/dL (06/30/13 12:05 AM) UA Bili [Negative] Negative *NA* (06/30/13 12:05 AM) UA Leuk Est [Negative] Negative (06/30/13 12:05 AM) UA Nitrite [Negative] Negative (06/30/13 12:05 AM) Micro? Not Indicated *NA* (06/30/13 12:05 AM) Medications Administered During Your Visit No data available for this section Immunizations No data available for this section Social History Social History Type Response Smoking Status Current every day smoker, Type: Cigarettes, Exposure to Tobacco Smoke None, Cigarette Smoking Last 365 Days Yes, Reg Smoking Cessation Counseling Yes
--- OUTSIDE RECORDS SUMMARY | 2017-11-01 10:17 | XMS REPORT | Summary of Care ---
:1980 Author Encounter Dates Location Diagnoses Discharge Providers Disposition 06/07/2013 - [facility] Discharge Home Shiv Zuñiga 06/07/[address] [place] [address] Diagnosis: [address] , [facility] Encounter for medication refill Reason for Visit OTHER Vital Signs Most recent to oldest [Reference 1 2 Range]: Height 162.56 cm (06/07/2013 19:03:00 [facility] Temperature Oral [96.4-99.1 DegF] 98.2 DegF (06/07/2013 19:03:00 [facility] Systolic Blood Pressure [90-140 116 mmHg 117 mmHg mmHg] (06/07/2013 19:20:00 [facility]) (06/07/2013 19:03:00 [facility]) Diastolic Blood Pressure [60-90 80 mmHg 86 mmHg mmHg] (06/07/2013 19:20:00 [facility]) (06/07/2013 19:03:00 [facility]) Respiratory Rate [14-20 BRMIN] 20 BRMIN 20 BRMIN (06/07/2013 19:20:00 [facility]) (06/07/2013 19:03:00 [facility]) Peripheral Pulse Rate [60-100 114 bpm 130 bpm bpm] *HI* *HI* (06/07/2013 19:20:00 [facility]) (06/07/2013 19:03:00 [facility] Weight 51.364 kg (06/07/2013 19:03:00 [facility] Body Mass Index 19.44 m2 (06/07/2013 19:03:00 [facility]) Problem List Condition Effective Dates Status Health Status Informant Abdominal pain(Confirmed) 02/01/2011 Active Anxiety(Confirmed) Active Hepatitis C(Confirmed) Resolved Ovarian cyst(Confirmed) Resolved Allergies, Adverse Reactions, Alerts Substance Reaction Severity Status NKDA Active Medications Medication Instructions Start Date Stop Date Status KlonoPIN 1 mg oral tablet 1 mg=1 tab, PO, BID, # 8 tab, 06/07/2013 Ordered 0 Refill(s) Medications Administered During Your Visit No data available for this section Immunizations No data available for this section Social History Social History Type Response Smoking Status Use: Current every day smoker. Type: Cigarettes. Tobacco smoke exposure: None. Did the Patient Smoke Cigarettes Anytime During the Last 365 Days? Yes. Cessation Counseling Provided? Yes.
--- OUTSIDE RECORDS SUMMARY | 2017-11-01 10:17 | XMS REPORT | Summary of Care ---
:1980 Author Encounter CLINTON Henry(MARIZA) [id number] Date(s): 06/22/13 - 06/22/[address] Discharge Diagnosis: Anxiety reaction Discharge Disposition: Home Physician Attending: Marylin Gu Reason for Visit ANXIETY Vital Signs Most recent to oldest [Reference Range]: 1 2 Height 162.56 cm (06/22/13 7:05 AM) Temperature Oral [96.4-99.1 DegF] 98.7 DegF 98.8 DegF (06/22/13 9:52 AM) (06/22/13 7:05 AM) Systolic Blood Pressure [90-140 mmHg] 119 mmHg 123 mmHg (06/22/13 9:52 AM) (06/22/13 7:05 AM) Diastolic Blood Pressure [60-90 mmHg] 80 mmHg 95 mmHg (06/22/13 9:52 AM) *HI* (06/22/13 7:05 AM) Respiratory Rate [14-20 BRMIN] 18 BRMIN 18 BRMIN (06/22/13 9:52 AM) (06/22/13 7:05 AM) Peripheral Pulse Rate [60-100 bpm] 80 bpm 82 bpm (06/22/13 9:52 AM) (06/22/13 7:05 AM) Weight 51.364 kg (06/22/13 7:05 AM) Body Mass Index 19.44 m2 (06/22/13 7:05 AM) Problem List Condition Effective Dates Status Health Status Informant Abdominal pain(Confirmed) 02/01/11 Active Anxiety(Confirmed) Active Hepatitis C(Confirmed) Resolved Ovarian cyst(Confirmed) Resolved Allergies, Adverse Reactions, Alerts Substance Reaction Severity Status NKDA Active Medications clonazePAM 1 mg, 1 tab, Route: PO, Drug form: TAB, ONCE, Dosing Weight 51.364, kg, Start date: 06/22/13 8:00:00, Stop date: 06/22/13 8:00:00 Notes: (Same As: KlonoPIN) Start Date: 06/22/13 Stop Date: 06/22/13 Status: CompletedclonazePAM 1 mg oral tablet 1 mg=1 tab, PO, BID, Anxiety, # 6 tab, 0 Refill(s) Start Date: 06/22/13 Status: Ordered Medications Administered During Your Visit No data available for this section Immunizations No data available for this section Social History Social History Type Response Smoking Status Current every day smoker, Type: Cigarettes, Exposure to Tobacco Smoke None, Cigarette Smoking Last 365 Days Yes, Reg Smoking Cessation Counseling Yes
--- OUTSIDE RECORDS SUMMARY | 2017-11-01 10:17 | XMS REPORT | Summary of Care ---
:1980 Author Encounter Dates Location Diagnoses Discharge Providers Disposition 05/30/2013 - [facility] Discharge Home Keo Blake 05/30/[address] [place] [address] Diagnosis: [address] , [facility] Medication refill Reason for Visit PANIC ATTACK Vital Signs Most recent to oldest [Reference Range]: 1 Height 162.56 cm (05/30/2013 12:56:00 [facility]) Temperature Oral [96.4-99.1 DegF] 98.5 DegF (05/30/2013 12:56:00 [facility]) Systolic Blood Pressure [90-140 mmHg] 127 mmHg (05/30/2013 12:56:00 [facility]) Diastolic Blood Pressure [60-90 mmHg] 79 mmHg (05/30/2013 12:56:00 [facility]) Respiratory Rate [14-20 BRMIN] 16 BRMIN (05/30/2013 12:56:00 [facility]) Peripheral Pulse Rate [60-100 bpm] 92 bpm (05/30/2013 12:56:00 [facility] Weight 51.818 kg (05/30/2013 12:56:00 [facility]) Body Mass Index 19.61 m2 (05/30/2013 12:56:00 [facility]) Problem List Condition Effective Dates Status Health Status Informant Abdominal pain(Confirmed) 02/01/2011 Active Anxiety(Confirmed) Active Hepatitis C(Confirmed) Resolved Ovarian cyst(Confirmed) Resolved Allergies, Adverse Reactions, Alerts Substance Reaction Severity Status NKDA Active Medications Medication Instructions Start Date Stop Date Status clonazePAM 1 mg oral tablet 1 mg=1 tab, PO, BID, # 8 tab, 05/30/2013 Ordered 0 Refill(s) Medications Administered During Your Visit No data available for this section Immunizations No data available for this section Social History Social History Type Response Smoking Status Use: Current every day smoker. Type: Cigarettes. Tobacco smoke exposure: None. Did the Patient Smoke Cigarettes Anytime During the Last 365 Days? Yes. Cessation Counseling Provided? Yes.
--- OUTSIDE RECORDS SUMMARY | 2017-11-01 10:17 | XMS REPORT | Summary of Care ---
:1980 Author Encounter CLINTON Henry(MARIZA) [id number] Date(s): 07/08/13 - 07/08/[address] Discharge Diagnosis: Substance abuse Discharge Diagnosis: Drug withdrawal Discharge Disposition: Home Physician Attending: Niall Quintanilla MD Reason for Visit ANXIETY Vital Signs Most recent to oldest [Reference Range]: 1 2 Height 162.56 cm (07/08/13 6:22 AM) Temperature Oral [96.4-99.1 DegF] 98.0 DegF 98.3 DegF (07/08/13 7:35 AM) (07/08/13 6:22 AM) Systolic Blood Pressure [90-140 mmHg] 112 mmHg 122 mmHg (07/08/13 7:35 AM) (07/08/13 6:22 AM) Diastolic Blood Pressure [60-90 mmHg] 86 mmHg 84 mmHg (07/08/13 7:35 AM) (07/08/13 6:22 AM) Respiratory Rate [14-20 BRMIN] 18 BRMIN 20 BRMIN (07/08/13 7:35 AM) (07/08/13 6:22 AM) Peripheral Pulse Rate [60-100 bpm] 89 bpm 99 bpm (07/08/13 7:35 AM) (07/08/13 6:22 AM) Weight 52.727 kg (07/08/13 6:22 AM) Body Mass Index 19.95 m2 (07/08/13 6:22 AM) Problem List Condition Effective Dates Status Health Status Informant Abdominal pain(Confirmed) 02/01/11 Active Anxiety(Confirmed) Active Hepatitis C(Confirmed) Resolved Ovarian cyst(Confirmed) Resolved Allergies, Adverse Reactions, Alerts Substance Reaction Severity Status NKDA Active Medications Ativan 1 mg, Route: PO, Drug form: TAB, ONCE, Dosing Weight 52.727, kg, Priority: STAT , Start date: 07/08/13 6:52:00, Stop date: 07/08/13 6:52:00 Start Date: 07/08/13 Stop Date: 07/08/13 Status: CompletedclonazePAM 1 mg, Route: PO, ONCE, Dosing Weight 52.727, kg, Start date: 07/08/13 6:42:00, Stop date: 07/08/13 6:42:00 Start Date: 07/08/13 Stop Date: 07/08/13 Status: DiscontinuedNorco 5/325 oral tablet 1 tab, Route: PO, Dosing Weight 52.727, kg, ONCE, Start date: 07/08/13 6:32:00, Stop date: 07/08/13 6:32:00 Start Date: 07/08/13 Stop Date: 07/08/13 Status: Completed Medications Administered During Your Visit No data available for this section Immunizations No data available for this section Social History Social History Type Response Smoking Status Current every day smoker, Type: Cigarettes, Exposure to Tobacco Smoke None, Cigarette Smoking Last 365 Days Yes, Reg Smoking Cessation Counseling Yes
--- OUTSIDE RECORDS SUMMARY | 2017-11-01 10:17 | XMS REPORT | Summary of Care ---
:1980 Author Encounter CLINTON Henry(MARIZA) [id number] Date(s): 06/16/13 - 06/16/[address] Discharge Diagnosis: Abdominal pain Discharge Disposition: Home Physician Attending: Diego Pulliam Reason for Visit ANXIETY AND ABDOMINAL PAIN Vital Signs Most recent to oldest [Reference Range]: 1 2 Height 162.56 cm (06/16/13 5:36 AM) Temperature Oral [96.4-99.1 DegF] 98.0 DegF 98.0 DegF (06/16/13 8:44 AM) (06/16/13 5:36 AM) Systolic Blood Pressure [90-140 mmHg] 110 mmHg 108 mmHg (06/16/13 8:44 AM) (06/16/13 5:36 AM) Diastolic Blood Pressure [60-90 mmHg] 67 mmHg 77 mmHg (06/16/13 8:44 AM) (06/16/13 5:36 AM) Respiratory Rate [14-20 BRMIN] 18 BRMIN 18 BRMIN (06/16/13 8:44 AM) (06/16/13 5:36 AM) Peripheral Pulse Rate [60-100 bpm] 70 bpm 72 bpm (06/16/13 8:44 AM) (06/16/13 5:36 AM) Weight 52.273 kg (06/16/13 5:36 AM) Body Mass Index 19.78 m2 (06/16/13 5:36 AM) Problem List Condition Effective Dates Status Health Status Informant Abdominal pain(Confirmed) 02/01/11 Active Anxiety(Confirmed) Active Hepatitis C(Confirmed) Resolved Ovarian cyst(Confirmed) Resolved Allergies, Adverse Reactions, Alerts Substance Reaction Severity Status NKDA Active Medications clonazePAM 1 mg oral tablet 1 mg=1 tab, PO, BID, # 6 tab, 0 Refill(s) Start Date: 06/16/13 Status: OrderedGI cocktail 30 mL, Route: PO, Drug Form: SUSP, Dosing Weight 52.273, kg, ONCE, STAT, Start date: 06/16/13 6:27:00, Stop date: 06/16/13 6:27:00 Notes: G.I. Cocktail=antacid with simethicone 22.5 mL - lidocaine viscous 7.5 mL Start Date: 06/16/13 Stop Date: 06/16/13 Status: Completedomeprazole 20 mg oral delayed release capsule 20 mg=1 cap, PO, Daily, # 30 cap, 0 Refill(s) Start Date: 06/16/13 Stop Date: 07/16/13 Status: OrderedZofran 4 mg, 2 mL, Route: IVP, Drug form: INJ, ONCE, Dosing Weight 52.273, kg, Priority : STAT, Start date: 06/16/13 6:29:00, Stop date: 06/16/13 6:29:00 Notes: (Same as: Zofran) Start Date: 06/16/13 Stop Date: 06/16/13 Status: CompletedZofran ODT 4 mg oral tablet, disintegrating 4 mg=1 tab, PO, ONCE, Dissolve tab under tongue, # 3 tab, 0 Refill(s) Special Instructions: Dissolve tab under tongue Start Date: 06/16/13 Status: Ordered Results ELECTROLYTES Most recent to oldest [Reference Range]: 1 Sodium Lvl [135-145 mEq/L] 143 mEq/L (06/16/13 6:29 AM) Potassium Lvl [3.5-5.1 mEq/L] 3.9 mEq/L (06/16/13 6:29 AM) Chloride Lvl [95-109 mEq/L] 106 mEq/L (06/16/13 6:29 AM) CO2 [24-32 mEq/L] 26 mEq/L (06/16/13 6:29 AM) AGAP [10.0-20.0 mEq/L] 14.9 mEq/L (06/16/13 6:29 AM) CHEM PANEL Most recent to oldest [Reference Range]: 1 Creatinine Lvl [0.5-1.4 mg/dL] 0.9 mg/dL (06/16/13 6:29 AM) eGFR 84 mL/min/1.73m2 1 *NA* (06/16/13 6:29 AM) BUN [7-22 mg/dL] 13 mg/dL (06/16/13 6:29 AM) Glucose Lvl [70-99 mg/dL] 86 mg/dL 2 (06/16/13 6:29 AM) Total Protein [6.4-8.4 g/dL] 7.6 g/dL (06/16/13 6:29 AM) Albumin Lvl [3.5-5.0 g/dL] 3.9 g/dL (06/16/13 6:29 AM) Globulin [2.0-4.0 g/dL] 3.7 g/dL (06/16/13 6:29 AM) A/G Ratio [0.7-1.6] 1.1 (06/16/13:29 AM) Calcium Lvl [8.5-10.5 mg/dL] 9.4 mg/dL (06/16/13 6:29 AM) ALT [0-65 unit/L] 38 unit/L (06/16/13:29 AM) AST [0-37 unit/L] 18 unit/L (06/16/13 6:29 AM) Alk Phos [39-136 unit/L] 63 unit/L (06/16/13:29 AM) Bili Total [0.2-1.3 mg/dL] 0.3 mg/dL (06/16/13 6:29 AM) Bili Direct [0.0-0.3 mg/dL] 0.1 mg/dL (06/16/13 6:29 AM) Bili Indirect [0.0-1.0 mg/dL] 0.2 mg/dL (06/16/13 6:29 AM) Lipase Lvl [73-393 unit/L] 397 unit/L *HI* (06/16/13 6:29 AM) 1Result Comment: The eGFR is calculated using [...] values reflect the clinical guidelines of the [employer] [employer].URINE CHEM Most recent to oldest [Reference Range]: 1 U Preg [Negative] Negative (06/16/13 8:12 AM) URINE AND STOOL Most recent to oldest [Reference Range]: 1 UA Turbidity [Clear] Slight Cloudy (06/16/13 8:12 AM) UA Color [Yellow] Yellow *NA* (06/16/13 8:12 AM) UA pH [5.0-8.0] 6.5 (06/16/13 8:12 AM) UA Spec Grav [<=1.030] 1.032 *NA* (06/16/13 8:12 AM) UA Glucose [Negative] Negative (06/16/13 8:12 AM) UA Blood [Negative] Negative (06/16/13 8:12 AM) UA Ketones [Negative] Trace *ABN* (06/16/13 8:12 AM) UA Protein [Negative mg/dL] 30 mg/dL *ABN* (06/16/13 8:12 AM) UA Urobilinogen [0.1-1.0 EU/dL] 0.2 EU/dL (06/16/13 8:12 AM) UA Bili [Negative] Small *ABN* (06/16/13 8:12 AM) UA Leuk Est [Negative] Trace *ABN* (06/16/13 8:12 AM) UA Nitrite [Negative] Negative (06/16/13 8:12 AM) UA WBC [None Seen /HPF] 6-10 /HPF *ABN* (06/16/13 8:12 AM) UA RBC [0-2 /HPF] 0-2 /HPF (06/16/13 8:12 AM) UA Bacteria [None Seen /HPF] Moderate /HPF (06/16/13 8:12 AM) UA Sq Epi [Few /LPF] Moderate /LPF *ABN* (06/16/13 8:12 AM) UA CaOx Dacia [None Seen /HPF] Few /HPF (06/16/13 8:12 AM) UA Mucus [None Seen /LPF] Moderate /LPF *ABN* (06/16/13 8:12 AM) Micro? Performed (06/16/13 8:12 AM) HEMATOLOGY Most recent to oldest [Reference Range]: 1 WBC [3.7-10.4 K/CMM] 11.3 K/CMM *HI* (06/16/13 6:29 AM) RBC [4.20-5.40 M/CMM] 4.94 M/CMM (06/16/13 6:29 AM) Hgb [12.0-16.0 g/dL] 17.0 g/dL *HI* (06/16/13 6:29 AM) Hct [36.0-48.0 %] 47.2 % (06/16/13 6:29 AM) MCV [81.0-99.0 fL] 95.5 fL (06/16/13 6:29 AM) MCH [27.0-31.0 pg] 34.3 pg *HI* (06/16/13 6:29 AM) MCHC [32.0-36.0 g/dL] 35.9 g/dL (06/16/13 6:29 AM) RDW [11.5-14.5 %] 12.2 % (06/16/13 6:29 AM) Platelet [133-450 K/CMM] 255 K/CMM (06/16/13 6:29 AM) MPV [7.4-10.4 fL] 8.1 fL (06/16/13 6:29 AM) Segs [45.0-75.0 %] 70.2 % (06/16/13 6:29 AM) Lymphocytes [20.0-40.0 %] 23.0 % (06/16/13 6:29 AM) Monocytes [2.0-12.0 %] 5.1 % (06/16/13 6:29 AM) Eosinophils [0.0-4.0 %] 0.6 % (06/16/13 6:29 AM) Basophils [0.0-1.0 %] 1.1 % *HI* (06/16/13 6:29 AM) Segs-Bands # [1.5-8.1 K/CMM] 7.9 K/CMM (06/16/13 6:29 AM) Lymphocytes # [1.0-5.5 K/CMM] 2.6 K/CMM (06/16/13 6:29 AM) Monocytes # [0.0-0.8 K/CMM] 0.6 K/CMM (06/16/13 6:29 AM) Eosinophils # [0.0-0.5 K/CMM] 0.1 K/CMM (06/16/13 6:29 AM) Basophils # [0.0-0.2 K/CMM] 0.1 K/CMM (06/16/13 6:29 AM) Medications Administered During Your Visit No data available for this section Immunizations No data available for this section Social History Social History Type Response Smoking Status Current every day smoker, Type: Cigarettes, Exposure to Tobacco Smoke None, Cigarette Smoking Last 365 Days Yes, Reg Smoking Cessation Counseling Yes
--- OUTSIDE RECORDS SUMMARY | 2017-11-01 10:17 | XMS REPORT | Summary of Care ---
:1980 Author Encounter CLINTON Henry(MARIZA) [id number] Date(s): 08/02/13 - 08/03/[address] Discharge Disposition: Not Seen Physician Attending: Rickie Davila MD Reason for Visit SPRAINED ARM/ANXIETY Vital Signs Most recent to oldest [Reference Range]: 1 Height 162.56 cm (08/02/13 10:04 PM) Temperature Oral [96.4-99.1 DegF] 98.3 DegF (08/02/13 10:04 PM) Systolic Blood Pressure [90-140 mmHg] 106 mmHg (08/02/13 10:04 PM) Diastolic Blood Pressure [60-90 mmHg] 59 mmHg *LOW* (08/02/13 10:04 PM) Respiratory Rate [14-20 BRMIN] 18 BRMIN (08/02/13 10:04 PM) Peripheral Pulse Rate [60-100 bpm] 84 bpm (08/02/13 10:04 PM) Weight 54.545 kg (08/02/13 10:04 PM) Body Mass Index 20.64 m2 (08/02/13 10:04 PM) Problem List Condition Effective Dates Status Health Status Informant Abdominal pain(Confirmed) 02/01/11 Active Anxiety(Confirmed) Active Hepatitis C(Confirmed) Resolved Ovarian cyst(Confirmed) Resolved Allergies, Adverse Reactions, Alerts Substance Reaction Severity Status NKDA Active Medications No data available for this section Medications Administered During Your Visit No data available for this section Immunizations No data available for this section Social History Social History Type Response Smoking Status Current every day smoker, Type: Cigarettes, Exposure to Tobacco Smoke None, Cigarette Smoking Last 365 Days Yes, Reg Smoking Cessation Counseling Yes
--- OUTSIDE RECORDS SUMMARY | 2017-11-01 10:17 | XMS REPORT | Summary of Care ---
:1980 Author Encounter CLINTON Henry(MARIZA) [id number] Date(s): 06/26/13 - 06/26/[address] Discharge Diagnosis: Anxiety Discharge Disposition: Home Physician Attending: iDego Pulliam Reason for Visit ANXIETY Vital Signs Most recent to oldest [Reference Range]: 1 Height 162.56 cm (06/26/13 5:05 AM) Temperature Oral [96.4-99.1 DegF] 98.9 DegF (06/26/13 5:05 AM) Systolic Blood Pressure [90-140 mmHg] 123 mmHg (06/26/13 5:05 AM) Diastolic Blood Pressure [60-90 mmHg] 83 mmHg (06/26/13 5:05 AM) Respiratory Rate [14-20 BRMIN] 18 BRMIN (06/26/13 5:05 AM) Peripheral Pulse Rate [60-100 bpm] 83 bpm (06/26/13 5:05 AM) Weight 52.273 kg (06/26/13 5:05 AM) Body Mass Index 19.78 m2 (06/26/13 5:05 AM) Problem List Condition Effective Dates Status Health Status Informant Abdominal pain(Confirmed) 02/01/11 Active Anxiety(Confirmed) Active Hepatitis C(Confirmed) Resolved Ovarian cyst(Confirmed) Resolved Allergies, Adverse Reactions, Alerts Substance Reaction Severity Status NKDA Active Medications KlonoPIN 1 mg oral tablet 1 mg=1 tab, PO, BID, # 10 tab, 0 Refill(s) Start Date: 06/26/13 Status: Ordered Medications Administered During Your Visit No data available for this section Immunizations No data available for this section Social History Social History Type Response Smoking Status Current every day smoker, Type: Cigarettes, Exposure to Tobacco Smoke None, Cigarette Smoking Last 365 Days Yes, Reg Smoking Cessation Counseling Yes
--- OUTSIDE RECORDS SUMMARY | 2017-11-01 10:18 | XMS REPORT | Summary of Care ---
:1980 Author Encounter CLINTON Henry(MARIZA) [id number] Date(s): 10/04/13 - 10/04/[address] Discharge Diagnosis: Anxiety Discharge Disposition: Home Physician Attending: Kyaw Kasper MD Reason for Visit ANXIETY Vital Signs Most recent to oldest [Reference Range]: 1 Height 162.56 cm (10/04/13 10:36 AM) Temperature Oral [96.4-99.1 DegF] 98.2 DegF (10/04/13 10:36 AM) Systolic Blood Pressure [90-140 mmHg] 110 mmHg (10/04/13 10:36 AM) Diastolic Blood Pressure [60-90 mmHg] 73 mmHg (10/04/13 10:36 AM) Respiratory Rate [14-20 BRMIN] 20 BRMIN (10/04/13 10:36 AM) Peripheral Pulse Rate [60-100 bpm] 99 bpm (10/04/13 10:36 AM) Weight 52.273 kg (10/04/13 10:36 AM) Body Mass Index 19.78 m2 (10/04/13 10:36 AM) Problem List Condition Effective Dates Status Health Status Informant Abdominal pain(Confirmed) 02/01/11 Active Anxiety(Confirmed) Active Anxiety(Confirmed) Resolved Clostridium difficile(Confirmed)1 08/18/13 Active Depression(Confirmed) Resolved Hepatitis C(Confirmed) Resolved Ovarian cyst(Confirmed) Resolved 1Problem added by Discern Expert. Allergies, Adverse Reactions, Alerts Substance Reaction Severity Status NKDA Active Medications Benadryl 25 mg, 1 cap, Route: PO, Drug form: CAP, ONCE, Dosing Weight 52.273, kg, Priority: STAT, Start date:10/04/13 11:09:00, Stop date: 10/04/13 11:09:00 Notes: (Same as: Benadryl) Start Date: 10/04/13 Stop Date: 10/04/13 Status: Completed Medications Administered During Your Visit No data available for this section Immunizations No data available for this section Social History Social History Type Response Smoking Status Current every day smoker, Type: Cigarettes, Exposure to Tobacco Smoke None, Cigarette Smoking Last 365 Days Yes, Reg Smoking Cessation Counseling Yes
--- OUTSIDE RECORDS SUMMARY | 2017-11-01 10:18 | XMS REPORT | Summary of Care ---
:1980 Author Encounter CLINTON Henry(MARIZA) [id number] Date(s): 08/15/13 - 08/15/[address] Discharge Diagnosis: Accidental fall Discharge Diagnosis: Shoulder pain, acute Discharge Disposition: Home Physician Attending: Diego Pulliam MD Reason for Visit PAIN AFTER FALL FROM YESTERDAY Vital Signs Most recent to oldest [Reference Range]: 1 2 Height 162.56 cm (08/15/13 4:59 AM) Temperature Oral [96.4-99.1 DegF] 97.5 DegF 97.7 DegF (08/15/13 6:58 AM) (08/15/13 4:59 AM) Systolic Blood Pressure [90-140 mmHg] 115 mmHg 118 mmHg (08/15/13 6:58 AM) (08/15/13 4:59 AM) Diastolic Blood Pressure [60-90 mmHg] 75 mmHg 80 mmHg (08/15/13 6:58 AM) (08/15/13 4:59 AM) Respiratory Rate [14-20 BRMIN] 17 BRMIN 18 BRMIN (08/15/13 6:58 AM) (08/15/13 4:59 AM) Peripheral Pulse Rate [60-100 bpm] 95 bpm 108 bpm (08/15/13 6:58 AM) *HI* (08/15/13 4:59 AM) Weight 52.727 kg (08/15/13 4:59 AM) Body Mass Index 19.95 m2 (08/15/13 4:59 AM) Problem List Condition Effective Dates Status Health Status Informant Abdominal pain(Confirmed) 02/01/11 Active Anxiety(Confirmed) Active Depression(Confirmed) Resolved Hepatitis C(Confirmed) Resolved Ovarian cyst(Confirmed) Resolved Allergies, Adverse Reactions, Alerts Substance Reaction Severity Status NKDA Active Medications ibuprofen 400 mg, Route: PO, Drug form: TAB, ONCE, Dosing Weight 52.727, kg, Priority: STAT, Start date: 08/15/13 6:49:00, Stop date: 08/15/13 6:49:00 Start Date: 08/15/13 Stop Date: 08/15/13 Status: CompletedKlonoPIN 1 mg oral tablet 1 mg=1 tab, PO, TID, # 15 tab, 0 Refill(s) Start Date: 08/15/13 Status: Ordered Medications Administered During Your Visit No data available for this section Immunizations No data available for this section Social History Social History Type Response Smoking Status Current every day smoker, Type: Cigarettes, Exposure to Tobacco Smoke None, Cigarette Smoking Last 365 Days Yes, Reg Smoking Cessation Counseling Yes
--- OUTSIDE RECORDS SUMMARY | 2017-11-01 10:18 | XMS REPORT | Summary of Care ---
:1980 Author Encounter CLINTON Henry(MARIZA) [id number] Date(s): 08/11/13 - 08/11/[address] Discharge Diagnosis: Anxiety disorder Discharge Disposition: Home Physician Attending: Ayesha Garvey MD Reason for Visit ANXIETY Vital Signs Most recent to oldest [Reference 1 2 3 Range]: Height 162.56 cm (08/11/13 5:23 PM) Temperature Oral [96.4-99.1 DegF] 98.2 DegF 97.9 DegF 98.9 DegF (08/11/13 11:03 PM) (08/11/13 9:04 PM) (08/11/13 6:44 PM) Systolic Blood Pressure [90-140 127 mmHg 114 mmHg 108 mmHg mmHg] (08/11/13 11:03 PM) (08/11/13 9:04 PM) (08/11/13 6:44 PM) Diastolic Blood Pressure [60-90 76 mmHg 71 mmHg 71 mmHg mmHg] (08/11/13 11:03 PM) (08/11/13 9:04 PM) (08/11/13 6:44 PM) Respiratory Rate [14-20 BRMIN] 18 BRMIN 18 BRMIN 18 BRMIN (08/11/13 11:03 PM) (08/11/13 9:04 PM) (08/11/13 6:44 PM) Peripheral Pulse Rate [60-100 87 bpm 68 bpm 88 bpm bpm] (08/11/13 11:03 PM) (08/11/13 9:04 PM) (08/11/13 6:44 PM) Weight 52.727 kg (08/11/13 5:23 PM) Body Mass Index 19.95 m2 (08/11/13 5:23 PM) Problem List Condition Effective Dates Status Health Status Informant Abdominal pain(Confirmed) 02/01/11 Active Anxiety(Confirmed) Active Depression(Confirmed) Resolved Hepatitis C(Confirmed) Resolved Ovarian cyst(Confirmed) Resolved Allergies, Adverse Reactions, Alerts Substance Reaction Severity Status NKDA Active Medications clonazePAM 1 mg oral tablet 1 mg=1 tab, PO, BID, # 15 tab, 0 Refill(s) Start Date: 08/11/13 Status: Ordered Medications Administered During Your Visit No data available for this section Immunizations No data available for this section Social History Social History Type Response Smoking Status Current every day smoker, Type: Cigarettes, Exposure to Tobacco Smoke None, Cigarette Smoking Last 365 Days Yes, Reg Smoking Cessation Counseling Yes
--- OUTSIDE RECORDS SUMMARY | 2017-11-01 10:18 | XMS REPORT | Summary of Care ---
:1980 Author Organization [facility] Address [address], [place] [address]- Encounter HQ Antonieta_dylan(FIN) [id number] Date(s): 07/06/15 - 07/06/[address] Professional Services provided by [facility] [place] [address]- Discharge Disposition: Home Attending Physician: Alessio Corral MD Vital Signs Most recent to oldest [Reference Range]: 1 Height 162.56 cm (07/06/15 2:08 AM) Temperature Oral [96.4-99.1 DegF] 97.9 DegF (07/06/15 2:08 AM) Blood Pressure [90-140/60-90 mmHg] 118/83 mmHg (07/06/15 2:08 AM) Respiratory Rate [14-20 BRMIN] 18 BRMIN (07/06/15 2:08 AM) Peripheral Pulse Rate [60-100 bpm] 89 bpm (07/06/15 2:08 AM) Weight 63.636 kg (07/06/15 2:08 AM) Body Mass Index 24.08 m2 (07/06/15 2:08 AM) Problem List Condition Effective Dates Status Health Status Informant Abdominal pain(Confirmed) 02/01/11 Active Anxiety(Confirmed) Active Anxiety(Confirmed) Resolved Anxiety disorder1 09/01/13 Active Clostridium difficile(Confirmed)2 08/18/13 Active Depression(Confirmed) Resolved Hepatitis C(Confirmed) Resolved Insomnia3 09/01/13 Active Low back pain4 09/01/13 Active Migraine5 09/01/13 Active Ovarian cyst(Confirmed) Resolved Recurrent depression6 09/01/13 Active 1Data migrated from [employer] on 08/11/14.2Problem added by Discern Expert.3Data migrated from [employer] on 08/11/14.4Data migrated from [employer] on 08/11/14.5Data migrated from [employer] on 08/11/14.6Data migrated from [employer] on 08/11/14. Allergies, Adverse Reactions, Alerts Substance Reaction Severity Status NKDA Active Medications No data available for this section Results No data available for this section Immunizations No data available for this section Procedures Procedure Date Related Diagnosis Body Site LEEP procedure of cervix Social History Social History Type Response Smoking Status Current every day smoker; Type: Cigarettes; Exposure to Tobacco Smoke None; Cigarette Smoking Last 365 Days Yes; Reg Smoking Cessation Counseling Yes Assessment and Plan No data available for this section
--- OUTSIDE RECORDS SUMMARY | 2017-11-01 10:18 | XMS REPORT | Summary of Care ---
:1980 Author Encounter CLINTON Henry(MARIZA) [id number] Date(s): 12/01/13 - 12/01/[address] Discharge Diagnosis: Polysubstance abuse Discharge Diagnosis: Abdominal pain - resolved Discharge Disposition: Home Physician Attending: Pancho Rivas DO Reason for Visit DRUG RELATED Vital Signs Most recent to oldest 1 2 3 [Reference Range]: Height 162.56 cm (12/01/13 4:17 AM) Temperature Oral [96.4-99.1 97.8 DegF 98.0 DegF 98.3 DegF DegF] (12/01/13 9:10 AM) (12/01/13 6:19 AM) (12/01/13 4:17 AM) Systolic Blood Pressure [90-140 128 mmHg 132 mmHg 117 mmHg mmHg] (12/01/13 9:10 AM) (12/01/13 7:21 AM) (12/01/13 6:19 AM) Diastolic Blood Pressure [60-90 82 mmHg 96 mmHg 89 mmHg mmHg] (12/01/13 9:10 AM) *HI* (12/01/13 6:19 AM) (12/01/13 7:21 AM) Respiratory Rate [14-20 BRMIN] 18 BRMIN 18 BRMIN 15 BRMIN (12/01/13 9:10 AM) (12/01/13 7:21 AM) (12/01/13 6:19 AM) Peripheral Pulse Rate [60-100 126 bpm bpm] *HI* (12/01/13 4:17 AM) Weight 54.545 kg (12/01/13 4:17 AM) Body Mass Index 20.64 m2 (12/01/13 4:17 AM) Problem List Condition Effective Dates Status Health Status Informant Abdominal pain(Confirmed) 02/01/11 Active Anxiety(Confirmed) Active Anxiety(Confirmed) Resolved Clostridium difficile(Confirmed)1 08/18/13 Active Depression(Confirmed) Resolved Hepatitis C(Confirmed) Resolved Ovarian cyst(Confirmed) Resolved 1Problem added by Discern Expert. Allergies, Adverse Reactions, Alerts Substance Reaction Severity Status NKDA Active Medications Sodium Chloride 0.9% (Bolus) IV 1,000 mL, 1,000 ml/hr, Infuse Over: 1 hr, Route: IV, 1,000, Drug form: INJ, ONCE , Priority: STAT, Dosing Weight 54.545 kg, Start date: 12/01/13 4:28:00, Duration: 1 doses or times, Stop date: 12/01/13 4:28:00 Start Date: 12/01/13 Stop Date: 12/01/13 Status: Completed Results ELECTROLYTES Most recent to oldest [Reference Range]: 1 Sodium Lvl [135-145 mEq/L] 139 mEq/L (12/01/13 5:00 AM) Potassium Lvl [3.5-5.1 mEq/L] 4.2 mEq/L (12/01/13 5:00 AM) Chloride Lvl [95-109 mEq/L] 104 mEq/L (12/01/13 5:00 AM) CO2 [24-32 mEq/L] 27 mEq/L (12/01/13 5:00 AM) AGAP [10.0-20.0 mEq/L] 12.2 mEq/L (12/01/13 5:00 AM) CHEM PANEL Most recent to oldest [Reference Range]: 1 Creatinine Lvl [0.5-1.4 mg/dL] 1.4 mg/dL (12/01/13 5:00 AM) eGFR 49 mL/min/1.73m2 1 *NA* (12/01/13 5:00 AM) BUN [7-22 mg/dL] 14 mg/dL (12/01/13 5:00 AM) B/C Ratio [6-25] 10 (12/01/13 5:00 AM) Glucose Lvl [70-99 mg/dL] 102 mg/dL 2 *HI* (12/01/13 5:00 AM) Total Protein [6.4-8.4 g/dL] 8.2 g/dL (12/01/13 5:00 AM) Albumin Lvl [3.5-5.0 g/dL] 4.6 g/dL (12/01/13 5:00 AM) Globulin [2.0-4.0 g/dL] 3.6 g/dL (12/01/13 5:00 AM) A/G Ratio [0.7-1.6] 1.3 (12/01/13 5:00 AM) Calcium Lvl [8.5-10.5 mg/dL] 9.7 mg/dL (12/01/13 5:00 AM) ALT [0-65 unit/L] 60 unit/L (12/01/13 5:00 AM) AST [0-37 unit/L] 33 unit/L (12/01/13 5:00 AM) Alk Phos [39-136 unit/L] 75 unit/L (12/01/13 5:00 AM) Bili Total [0.2-1.3 mg/dL] 0.7 mg/dL (12/01/13 5:00 AM) 1Result Comment: The eGFR is calculated [...] values reflect the clinical guidelines of the [employer].DRUG SCREEN Most recent to oldest [Reference Range]: 1 U Amph Scr [Negative] Positive *ABN* (12/01/13 5:25 AM) U Jihan Scr [Negative] Negative *NA* (12/01/13 5:25 AM) U Benzodia Scr [Negative] Positive *ABN* (12/01/13 5:25 AM) U Cocaine Scr [Negative] Positive *ABN* (12/01/13 5:25 AM) U Opiate Scr [Negative] Positive *ABN* (12/01/13 5:25 AM) U Phencyc Scr [Negative] Negative *NA* (12/01/13 5:25 AM) U Cannab Scr [Negative] Positive *ABN* (12/01/13 5:25 AM) UDS Note See Note 3 (12/01/13 5:25 AM) 3Interpretive Data: Drugs reported as positive have not been confirmed by a second method and should be used for medical purposes only. To order confirmation, contact laboratory. note: Below are cut-off [...] ng/mL Methadone 300 ng/mL Urine alcohol 20 mg/dLTOXICOLOGY Most recent to oldest [Reference Range]: 1 Etoh (%) <0.003 % 4 (12/01/13 5:00 AM) Ethanol Lvl <3.0 mg/dL 5 (12/01/13 5:00 AM) 4Interpretive Data: Ethanol testing results should be used for medical purposes only. Negative Range: <0.003% Toxic Range: >0.25%5Interpretive Data: Negative Range: <3 mg/dL Toxic Range: >250 mg/dLENDOCRINOLOGY Most recent to oldest [Reference Range]: 1 S Preg [Negative] Negative *NA* (12/01/13 5:00 AM) URINE AND STOOL Most recent to oldest [Reference Range]: 1 UA Turbidity [Clear] Turbid *ABN* (12/01/13 5:25 AM) UA Color DARK YELLO *NA* (12/01/13 5:25 AM) UA pH [5.0-8.0] 5.5 (12/01/13 5:25 AM) UA Spec Grav [<=1.030] >=1.030 *ABN* (12/01/13 5:25 AM) UA Glucose [Negative] Negative (12/01/13 5:25 AM) UA Blood [Negative] Large *ABN* (12/01/13 5:25 AM) UA Ketones [Negative] Negative *NA* (12/01/13 5:25 AM) UA Protein [Negative mg/dL] >=300 mg/dL *ABN* (12/01/13 5:25 AM) UA Urobilinogen [0.1-1.0 EU/dL] 1.0 EU/dL (12/01/13 5:25 AM) UA Bili [Negative] Negative *NA* (12/01/13 5:25 AM) UA Leuk Est [Negative] Negative (12/01/13 5:25 AM) UA Nitrite [Negative] Negative (12/01/13 5:25 AM) UA WBC [None Seen /HPF] 11-20 /HPF *ABN* (12/01/13 5:25 AM) UA RBC [0-2 /HPF] 51-100 /HPF *ABN* (12/01/13 5:25 AM) UA Bacteria [None Seen /HPF] Moderate /HPF (12/01/13 5:25 AM) UA Sq Epi [Few /LPF] Moderate /LPF *ABN* (12/01/13 5:25 AM) UA Hyal Cast [0-2] 6-10 (12/01/13 5:25 AM) UA Amorph Dacia [None Seen /HPF] Few /HPF *ABN* (12/01/13 5:25 AM) UA Mucus [None Seen /LPF] Moderate /LPF *ABN* (12/01/13 5:25 AM) Micro? Performed (12/01/13 5:25 AM) IMMUNOLOGY Most recent to oldest [Reference Range]: 1 CDC HIV 4th GEN [Negative] Negative (12/01/13 5:00 AM) HEMATOLOGY Most recent to oldest [Reference Range]: 1 WBC [3.7-10.4 K/CMM] 17.4 K/CMM *HI* (12/01/13 5:00 AM) RBC [4.20-5.40 M/CMM] 4.90 M/CMM (12/01/13 5:00 AM) Hgb [12.0-16.0 g/dL] 16.1 g/dL *HI* (12/01/13 5:00 AM) Hct [36.0-48.0 %] 47.6 % (12/01/13 5:00 AM) MCV [80.0-98.0 fL] 97.1 fL (12/01/13 5:00 AM) MCH [27.0-31.0 pg] 33.0 pg *HI* (12/01/13 5:00 AM) MCHC [32.0-36.0 g/dL] 33.9 g/dL (12/01/13 5:00 AM) RDW [11.5-14.5 %] 14.3 % (12/01/13 5:00 AM) Platelet [133-450 K/CMM] 284 K/CMM (12/01/13 5:00 AM) MPV [7.4-10.4 fL] 7.4 fL (12/01/13 5:00 AM) Segs [45.0-75.0 %] 87.6 % *HI* (12/01/13 5:00 AM) Lymphocytes [20.0-40.0 %] 5.7 % *LOW* (12/01/13 5:00 AM) Monocytes [2.0-12.0 %] 6.7 % (12/01/13 5:00 AM) Eosinophils [0.0-4.0 %] 0.0 % (12/01/13 5:00 AM) Basophils [0.0-1.0 %] 0.0 % (12/01/13 5:00 AM) Segs-Bands # [1.5-8.1 K/CMM] 15.2 K/CMM *HI* (12/01/13 5:00 AM) Lymphocytes # [1.0-5.5 K/CMM] 1.0 K/CMM (12/01/13 5:00 AM) Monocytes # [0.0-0.8 K/CMM] 1.2 K/CMM *HI* (12/01/13 5:00 AM) Eosinophils # [0.0-0.5 K/CMM] 0.0 K/CMM (12/01/13 5:00 AM) Basophils # [0.0-0.2 K/CMM] 0.0 K/CMM (12/01/13 5:00 AM) Anisocyte [None Seen] 1+ *ABN* (12/01/13 5:00 AM) Microcyte [None Seen] 1+ *ABN* (12/01/13 5:00 AM) Plt Morph Normal (12/01/13 5:00 AM) Medications Administered During Your Visit No data available for this section Immunizations No data available for this section Social History Social History Type Response Smoking Status Current every day smoker, Type: Cigarettes, Exposure to Tobacco Smoke None, Cigarette Smoking Last 365 Days Yes, Reg Smoking Cessation Counseling Yes
--- OUTSIDE RECORDS SUMMARY | 2017-11-01 10:18 | XMS REPORT | Summary of Care ---
:1980 Author Encounter CLINTON Henry(MARIZA) [id number] Date(s): 10/02/13 - 10/02/[address] Discharge Diagnosis: Medication refill Discharge Diagnosis: Hemorrhoids Discharge Disposition: Home Physician Attending: Donny Bustos MD PHD Reason for Visit MEDICATION REFILL Vital Signs Most recent to oldest [Reference Range]: 1 2 Height 162.56 cm (10/02/13 4:58 AM) Temperature Oral [96.4-99.1 DegF] 98.0 DegF 97.5 DegF (10/02/13 8:29 AM) (10/02/13 4:58 AM) Systolic Blood Pressure [90-140 mmHg] 112 mmHg 113 mmHg (10/02/13 8:29 AM) (10/02/13 4:58 AM) Diastolic Blood Pressure [60-90 mmHg] 68 mmHg 81 mmHg (10/02/13 8:29 AM) (10/02/13 4:58 AM) Respiratory Rate [14-20 BRMIN] 18 BRMIN 18 BRMIN (10/02/13 8:29 AM) (10/02/13 4:58 AM) Peripheral Pulse Rate [60-100 bpm] 87 bpm 95 bpm (10/02/13 8:29 AM) (10/02/13 4:58 AM) Weight 54.545 kg (10/02/13 4:58 AM) Body Mass Index 20.64 m2 (10/02/13 4:58 AM) Problem List Condition Effective Dates Status Health Status Informant Abdominal pain(Confirmed) 02/01/11 Active Anxiety(Confirmed) Active Anxiety(Confirmed) Resolved Clostridium difficile(Confirmed)1 08/18/13 Active Depression(Confirmed) Resolved Hepatitis C(Confirmed) Resolved Ovarian cyst(Confirmed) Resolved 1Problem added by Discern Expert. Allergies, Adverse Reactions, Alerts Substance Reaction Severity Status NKDA Active Medications CeleXA 40 mg oral tablet 40 mg=1 tab, PO, Daily, # 10 tab, 0 Refill(s) Start Date: 10/02/13 Status: OrderedclonazePAM 1 mg oral tablet 1 mg=1 tab, PO, TID, Anxiety, # 5 tab, 0 Refill(s) Start Date: 10/02/13 Status: OrderedProctofoam 1% rectal foam See Instructions, apply to rectum twice daily as needed for hemorrhoids, # 1 tube, 0 Refill(s) Special Instructions: apply to rectum twice daily as needed for hemorrhoids Start Date: 10/02/13 Status: Ordered Medications Administered During Your Visit No data available for this section Immunizations No data available for this section Social History Social History Type Response Smoking Status Current every day smoker, Type: Cigarettes, Exposure to Tobacco Smoke None, Cigarette Smoking Last 365 Days Yes, Reg Smoking Cessation Counseling Yes
--- OUTSIDE RECORDS SUMMARY | 2017-11-01 10:18 | XMS REPORT | Summary of Care ---
:1980 Author Encounter CLINTON Henry(MARIZA) [id number] Date(s): 08/18/13 - 08/18/[address] Discharge Diagnosis: Abdominal pain Discharge Diagnosis: Acute diarrhea Discharge Disposition: Home Physician Attending: Shiv Zuñiga MD Reason for Visit ABDOMINAL PAIN Vital Signs Most recent to oldest [Reference 1 2 3 Range]: Height 162.56 cm (08/18/13 3:08 AM) Temperature Oral [96.4-99.1 DegF] 97.6 DegF 97.6 DegF 98.0 DegF (08/18/13 6:46 AM) (08/18/13 5:29 AM) (08/18/13 3:08 AM) Systolic Blood Pressure [90-140 100 mmHg 103 mmHg 94 mmHg mmHg] (08/18/13 6:46 AM) (08/18/13 5:29 AM) (08/18/13 3:08 AM) Diastolic Blood Pressure [60-90 65 mmHg 65 mmHg 60 mmHg mmHg] (08/18/13 6:46 AM) (08/18/13 5:29 AM) (08/18/13 3:08 AM) Respiratory Rate [14-20 BRMIN] 18 BRMIN 18 BRMIN 18 BRMIN (08/18/13 6:46 AM) (08/18/13 5:29 AM) (08/18/13 3:08 AM) Peripheral Pulse Rate [60-100 bpm] 60 bpm 67 bpm 76 bpm (08/18/13 6:46 AM) (08/18/13 5:29 AM) (08/18/13 3:08 AM) Weight 54.545 kg (08/18/13 3:08 AM) Body Mass Index 20.64 m2 (08/18/13 3:08 AM) Problem List Condition Effective Dates Status Health Status Informant Abdominal pain(Confirmed) 02/01/11 Active Anxiety(Confirmed) Active Clostridium difficile(Confirmed)1 08/18/13 Active Depression(Confirmed) Resolved Hepatitis C(Confirmed) Resolved Ovarian cyst(Confirmed) Resolved 1Problem added by Discern Expert. Allergies, Adverse Reactions, Alerts Substance Reaction Severity Status NKDA Active Medications tramadol 50 mg oral tablet 50 mg, Route: PO, Drug form: TAB, ONCE, Dosing Weight 54.545, kg, Priority: STAT , Start date: 08/18/13 6:22:00, Stop date: 08/18/13 6:22:00 Start Date: 08/18/13 Stop Date: 08/18/13 Status: CompletedTylenol 975 mg, Route: PO, Drug form: TAB, ONCE, Dosing Weight 54.545, kg, Start date: 08/18/13 6:07:00, Stop date: 08/18/13 6:07:00 Start Date: 08/18/13 Stop Date: 08/18/13 Status: CompletedTylenol 650 mg, Route: PO, Drug form: TAB, ONCE, Dosing Weight 54.545, kg, Priority: STAT, Start date: 08/18/13 6:07:00, Stop date: 08/18/13 6:07:00 Start Date: 08/18/13 Stop Date: 08/18/13 Status: Discontinued Results URINE CHEM Most recent to oldest [Reference Range]: 1 U Preg [Negative] Negative (08/18/13 5:34 AM) MOLECULAR DIAGNOSTIC Most recent to oldest [Reference Range]: 1 C difficile DNA [Negative] Positive 1, 2 *ABN* (08/18/13 5:34 AM) 1Result Comment: "Significant Findings called to Michelle Gingher at 08/18/2013 15 :28 by DG.Read Back OK."2Interpretive Data: [employer]ene Clostridium difficile assay utilizes loop-mediated isothermalDNA amplification (LAMP) technology to detect a 204 bp region of the tcdA gene within the PaLoc genesegment present in all known toxigenic C. difficile strains. The assay utilizes FDA cleared IVD reagents. Performance characteristics have been verified by the [facility] within the [facility]. The [facility] is authorized under the Clinical Laboratory Improvement Amendment of 1988 (CLIA-88) to perform highcomplexity testing. Medications Administered During Your Visit No data available for this section Immunizations No data available for this section Social History Social History Type Response Smoking Status Current every day smoker, Type: Cigarettes, Exposure to Tobacco Smoke None, Cigarette Smoking Last 365 Days Yes, Reg Smoking Cessation Counseling Yes
--- OUTSIDE RECORDS SUMMARY | 2017-11-01 10:18 | XMS REPORT | Summary of Care ---
:1980 Author Encounter CLINTON Henry(MARIZA) [id number] Date(s): 08/30/13 - 08/31/13 [facility] [address] Discharge Diagnosis: Anxiety Discharge Diagnosis: Mood disorder Discharge Diagnosis: Medication refill Discharge Disposition: Home Physician Attending: Elie Mancuso MD Reason for Visit ANXIETY Vital Signs Most recent to oldest [Reference Range]: 1 2 Height 162.56 cm (08/30/13 8:23 PM) Temperature Oral [96.4-99.1 DegF] 98.4 DegF (08/30/13 8:23 PM) Systolic Blood Pressure [90-140 mmHg] 132 mmHg 110 mmHg (08/31/13 12:50 AM) (08/30/13 8:23 PM) Diastolic Blood Pressure [60-90 mmHg] 78 mmHg 75 mmHg (08/31/13 12:50 AM) (08/30/13 8:23 PM) Respiratory Rate [14-20 BRMIN] 16 BRMIN 18 BRMIN (08/31/13 12:50 AM) (08/30/13 8:23 PM) Peripheral Pulse Rate [60-100 bpm] 80 bpm 99 bpm (08/31/13 12:50 AM) (08/30/13 8:23 PM) Weight 52.273 kg (08/30/13 8:23 PM) Body Mass Index 19.78 m2 (08/30/13 8:23 PM) Problem List Condition Effective Dates Status Health Status Informant Abdominal pain(Confirmed) 02/01/11 Active Anxiety(Confirmed) Active Anxiety(Confirmed) Resolved Clostridium difficile(Confirmed)1 08/18/13 Active Depression(Confirmed) Resolved Hepatitis C(Confirmed) Resolved Ovarian cyst(Confirmed) Resolved 1Problem added by Discern Expert. Allergies, Adverse Reactions, Alerts Substance Reaction Severity Status NKDA Active Medications BD Normal Saline Flush 10 mL, Route: IV, Drug Form: INJ, PRN, PRN Line Flush, Start date: 08/31/13 0:25 :00, Duration: 30 day, Stop date: 09/30/13 0:24:00 Notes: (Same as: BD Posiflush) Start Date: 08/31/13 Stop Date: 08/31/13 Status: DiscontinuedclonazePAM 1 mg, 2 tab, Route: PO, Drug form: TAB, ONCE, Dosing Weight 52.273, kg, Start date: 08/31/13 0:06:00, Stop date: 08/31/13 0:06:00 Notes: (Same As: KlonoPIN) Start Date: 08/31/13 Stop Date: 08/31/13 Status: CompletedclonazePAM 1 mg oral tablet 1 mg=1 tab, PO, BID, # 2 tab, 0 Refill(s) Start Date: 08/31/13 Status: OrderedSodium Chloride 0.9% IV 25 mL, Route: IV, Start date: 08/31/13 0:26:00, Duration: 30 day, Stop date: 0:25:00, PRN Line Flush Start Date: 08/31/13 Stop Date: 08/31/13 Status: Discontinued Medications Administered During Your Visit No data available for this section Immunizations No data available for this section Social History Social History Type Response Smoking Status Current every day smoker, Type: Cigarettes, Exposure to Tobacco Smoke None, Cigarette Smoking Last 365 Days Yes, Reg Smoking Cessation Counseling Yes
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
--- OUTSIDE RECORDS SUMMARY | 2017-11-01 10:18 | XMS REPORT | Summary of Care ---
:1980 Author Encounter CLINTON Henry(MARIZA) [id number] Date(s): 08/04/14 - 08/04/14 [facility] [address] [employer] provided by [facility] [place] [address]- Discharge Diagnosis: Nose ulceration Discharge Disposition: Home Physician Attending: Hermes Wolfe MD Vital Signs Most recent to oldest [Reference Range]: 1 2 Height 162.56 cm (08/04/14 1:13 PM) Temperature Oral [96.4-99.1 DegF] 98.1 DegF (08/04/14 3:00 PM) Blood Pressure [90-140/60-90 mmHg] 93/61 mmHg 92/62 mmHg (08/04/14 3:00 PM) (08/04/14 1:13 PM) Respiratory Rate [14-20 BRMIN] 18 BRMIN 18 BRMIN (08/04/14 3:00 PM) (08/04/14 1:13 PM) Peripheral Pulse Rate [60-100 bpm] 74 bpm 78 bpm (08/04/14 3:00 PM) (08/04/14 1:13 PM) Weight 63.636 kg (08/04/14 1:13 PM) Body Mass Index 24.08 m2 (08/04/14 1:13 PM) Problem List Condition Effective Dates Status Health Status Informant Abdominal pain(Confirmed) 02/01/11 Active Anxiety(Confirmed) Active Anxiety(Confirmed) Resolved Clostridium difficile(Confirmed)1 08/18/13 Active Depression(Confirmed) Resolved Hepatitis C(Confirmed) Resolved Ovarian cyst(Confirmed) Resolved 1Problem added by Discern Expert. Allergies, Adverse Reactions, Alerts Substance Reaction Severity Status NKDA Active Medications Bactroban 2% nasal ointment w/applicator 1 appl, NASAL, BID, # 1 gm, 0 Refill(s) Start Date: 08/04/14 Stop Date: 08/10/14 Status: Ordered Results No data available for this section [...]
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
--- OUTSIDE RECORDS SUMMARY | 2017-11-01 10:19 | XMS REPORT | Clinical Summary ---
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
--- OUTSIDE RECORDS SUMMARY | 2017-11-01 10:19 | XMS REPORT | Summary of Care ---
:[address] [facility] Address [address], [place] [address]- Encounter HQ Antonieta_dylan(FIN) [id number] Date(s): 10/23/16 - 10/23/16 [id number] [place] [address]- Discharge Disposition: DC/TF To Psych Hosp Attending Physician: Shiv Bryson MD Vital Signs Most recent to oldest 1 2 3 [Reference Range]: Height 162.56 cm (10/23/16 7:59 AM) Temperature Oral [96.4-99.1 98.2 DegF 98.3 DegF 98.6 DegF DegF] (10/23/16 6:08 PM) (10/23/16 3:51 PM) (10/23/16 11:30 AM) Blood Pressure [90-140/60-90 104/65 mmHg 100/63 mmHg 114/82 mmHg mmHg] (10/23/16 6:08 PM) (10/23/16 3:51 PM) (10/23/16 11:30 AM) Respiratory Rate [14-20 BRMIN] 18 BRMIN 18 BRMIN 18 BRMIN (10/23/16 6:08 PM) (10/23/16 3:51 PM) (10/23/16 11:30 AM) Peripheral Pulse Rate [60-100 100 bpm 97 bpm 92 bpm bpm] (10/23/16 6:08 PM) (10/23/16 3:51 PM) (10/23/16 11:30 AM) Weight 68.182 kg (10/23/16 7:59 AM) Body Mass Index 25.8 m2 (10/23/16 7:59 AM) Problem List Condition Effective Dates Status Health Status Informant Abdominal pain(Confirmed) 02/01/11 Active Anxiety(Confirmed) Active Anxiety(Confirmed) Resolved Anxiety disorder1 09/01/13 Active Clostridium difficile(Confirmed)2 08/18/13 Active Depression(Confirmed) Resolved Hepatitis C(Confirmed) Resolved Insomnia3 09/01/13 Active Low back pain4 09/01/13 Active Migraine5 09/01/13 Active Ovarian cyst(Confirmed) Resolved Recurrent depression6 09/01/13 Active Suicidal ideation(Confirmed) Resolved 1Data migrated from [employer] on 08/11/14.2Problem added by Discern Expert.3Data migrated from [employer] on 08/11/14.4Data migrated from [employer] on 08/11/14.5Data migrated from [employer] on 08/11/14.6Data migrated from [employer] on 08/11/14. Allergies, Adverse Reactions, Alerts Substance Reaction Severity Status NKDA Active Medications Ativan 1 mg, 1 tab, Route: PO, Drug form: TAB, ONCE, Dosing Weight 68.182, kg, Priority : STAT, Start date: 10/23/16 8:15:00 CDT, Stop date: 10/23/16 8:15:00 CDT Notes: (Same as: Ativan) Start Date: 10/23/16 Stop Date: 10/23/16 Status: Completedibuprofen 400 mg oral tablet 800 mg, Route: PO, Drug form: TAB, ONCE, Dosing Weight 68.182, kg, Priority: STAT, Start date: 10/23/16 15:40:00 CDT, Stop date: 10/23/16 15:40:00 CDT Start Date: 10/23/16 Stop Date: 10/23/16 Status: Completed Results ELECTROLYTES Most recent to oldest [Reference Range]: 1 Sodium Lvl [135-145 mEq/L] 136 mEq/L (10/23/16 8:45 AM) Potassium Lvl [3.5-5.1 mEq/L] 3.6 mEq/L (10/23/16 8:45 AM) Chloride Lvl [95-109 mEq/L] 104 mEq/L (10/23/16 8:45 AM) CO2 [24-32 mEq/L] 25 mEq/L (10/23/16 8:45 AM) AGAP [10.0-20.0 mEq/L] 10.6 mEq/L (10/23/16 8:45 AM) CHEM PANEL Most recent to oldest [Reference Range]: 1 Creatinine Lvl [0.50-1.40 mg/dL] 0.76 mg/dL (10/23/16 8:45 AM) eGFR 100 mL/min/1.73m2 1 *NA* (10/23/16 8:45 AM) BUN [7-22 mg/dL] 16 mg/dL (10/23/16 8:45 AM) B/C Ratio [6-25] 21 (10/23/16 8:45 AM) Glucose Lvl [70-99 mg/dL] 90 mg/dL (10/23/16 8:45 AM) Total Protein [6.4-8.4 g/dL] 6.9 g/dL (10/23/16 8:45 AM) Albumin Lvl [3.5-5.0 g/dL] 3.8 g/dL (10/23/16 8:45 AM) Globulin [2.7-4.2 g/dL] 3.1 g/dL (10/23/16 8:45 AM) A/G Ratio [0.7-1.6] 1.2 (10/23/16 8:45 AM) Calcium Lvl [8.5-10.5 mg/dL] 8.5 mg/dL (10/23/16 8:45 AM) ALT [0-65 unit/L] 90 unit/L *HI* (10/23/16 8:45 AM) AST [0-37 unit/L] 29 unit/L (10/23/16 8:45 AM) Alk Phos [39-136 unit/L] 56 unit/L (10/23/16 8:45 AM) Bili Total [0.2-1.3 mg/dL] 1.1 mg/dL (10/23/16 8:45 AM) 1Result Comment: The eGFR is calculated [...] eGFR should be multiplied by the estimated BMI.DRUG SCREEN Most recent to oldest [Reference Range]: 1 U Amph Scr [Negative] Positive *ABN* (10/23/16 10:06 AM) U Jihan Scr [Negative] Negative *NA* (10/23/16 10:06 AM) U Benzodia Scr [Negative] Negative *NA* (10/23/16 10:06 AM) U Cocaine Scr [Negative] Negative *NA* (10/23/16 10:06 AM) U Opiate Scr [Negative] Positive *ABN* (10/23/16 10:06 AM) U Phencyc Scr [Negative] Negative *NA* (10/23/16 10:06 AM) U Cannab Scr [Negative] Negative *NA* (10/23/16 10:06 AM) UDS Note See Note (10/23/16 10:06 AM) TOXICOLOGY Most recent to oldest [Reference Range]: 1 Acetaminoph Lvl [10-20 ug/ml] 2 ug/ml *LOW* (10/23/16 8:45 AM) Salicylate Lvl [0.0-30.0 mg/dL] <1.7 mg/dL (10/23/16 8:45 AM) Etoh (%) <0.003 % (10/23/16 8:45 AM) Ethanol Lvl <3.0 mg/dL (10/23/16 8:45 AM) URINE CHEM Most recent to oldest [Reference Range]: 1 U Preg [Negative] Negative (10/23/16 10:00 AM) URINE AND STOOL Most recent to oldest [Reference Range]: 1 UA Turbidity [Clear] Slight *ABN* (10/23/16 10:00 AM) UA Color Paulina *NA* (10/23/16 10:00 AM) UA pH [5.0-8.0] 5.0 (10/23/16 10:00 AM) UA Spec Grav [<=1.030] 1.025 (10/23/16 10:00 AM) UA Glucose [Negative mg/dL] Negative mg/dL *NA* (10/23/16 10:00 AM) UA Blood [Negative] Negative (10/23/16 10:00 AM) UA Ketones [Negative mg/dL] Negative mg/dL *NA* (10/23/16 10:00 AM) UA Protein [Negative mg/dL] Negative mg/dL (10/23/16 10:00 AM) UA Urobilinogen [0.1-1.0 mg/dL] 2.0 mg/dL *HI* (10/23/16 10:00 AM) UA Bili [Negative] Negative *NA* (10/23/16 10:00 AM) UA Leuk Est [Negative] Negative (10/23/16 10:00 AM) UA Nitrite [Negative] Negative (10/23/16 10:00 AM) UA WBC [0-5 /HPF] 2 /HPF (10/23/16 10:00 AM) UA RBC [0-2 /HPF] 1 /HPF (10/23/16 10:00 AM) UA Bacteria [None Seen /HPF] Occasional /HPF *NA* (10/23/16 10:00 AM) UA Sq Epi [Few /LPF] Many /LPF *ABN* (10/23/16 10:00 AM) UA Hyal Cast [0-2 /LPF] 1 /LPF (10/23/16 10:00 AM) UA Mucus [None Seen /LPF] Few /LPF *NA* (10/23/16 10:00 AM) HEMATOLOGY Most recent to oldest [Reference Range]: 1 WBC [3.7-10.4 K/CMM] 9.5 K/CMM (10/23/16 8:45 AM) RBC [4.20-5.40 M/CMM] 4.32 M/CMM (10/23/16 8:45 AM) Hgb [12.0-16.0 g/dL] 13.8 g/dL (10/23/16 8:45 AM) Hct [36.0-48.0 %] 40.4 % (10/23/16 8:45 AM) MCV [80.0-98.0 fL] 93.5 fL (10/23/16 8:45 AM) MCH [27.0-31.0 pg] 32.0 pg *HI* (10/23/16 8:45 AM) MCHC [32.0-36.0 g/dL] 34.2 g/dL (10/23/16 8:45 AM) RDW [11.5-14.5 %] 12.7 % (10/23/16 8:45 AM) Platelet [133-450 K/CMM] 270 K/CMM (10/23/16 8:45 AM) MPV [7.4-10.4 fL] 7.4 fL (10/23/16 8:45 AM) Segs [45.0-75.0 %] 62.5 % (10/23/16 8:45 AM) Lymphocytes [20.0-40.0 %] 26.1 % (10/23/16 8:45 AM) Monocytes [2.0-12.0 %] 10.6 % (10/23/16 8:45 AM) Eosinophils [0.0-4.0 %] 0.4 % (10/23/16 8:45 AM) Basophils [0.0-1.0 %] 0.4 % (10/23/16 8:45 AM) Segs-Bands # [1.5-8.1 K/CMM] 5.9 K/CMM (10/23/16 8:45 AM) Lymphocytes # [1.0-5.5 K/CMM] 2.5 K/CMM (10/23/16 8:45 AM) Monocytes # [0.0-0.8 K/CMM] 1.0 K/CMM *HI* (10/23/16 8:45 AM) Eosinophils # [0.0-0.5 K/CMM] 0.0 K/CMM (10/23/16 8:45 AM) Basophils # [0.0-0.2 K/CMM] 0.0 K/CMM (10/23/16 8:45 AM) Immunizations No data available for this section [...]
--- OUTSIDE RECORDS SUMMARY | 2017-11-01 10:19 | XMS REPORT | Summary of Care ---
:1980 Author Organization [facility] Address [address] [place] [address]- Encounter HQ Antonieta_dylan(FIN) [id number] Date(s): 01/06/16 - 01/07/[address] [address]- Discharge Disposition: Home or Self Care Attending Physician: Jean Marie Rivera MD Vital Signs Most recent to oldest 1 2 3 [Reference Range]: Height 162.56 cm (01/06/16 8:20 PM) Temperature Oral 98.0 DegF 97.9 DegF 98.5 DegF [96.4-99.1 DegF] (01/07/16 11:06 AM) (01/07/16 11:00 AM) (01/07/16 6:03 AM) Blood Pressure 118/78 mmHg 148/69 mmHg 139/72 mmHg [90-140/60-90 mmHg] (01/07/16 11:06 AM) *HI* (01/07/16 6:03 AM) (01/07/16 11:00 AM) Respiratory Rate [14-20 18 BRMIN 16 BRMIN 18 BRMIN BRMIN] (01/07/16 11:06 AM) (01/07/16 11:00 AM) (01/07/16 6:03 AM) Peripheral Pulse Rate 78 bpm 74 bpm 77 bpm [60-100 bpm] (01/07/16 11:06 AM) (01/07/16 11:00 AM) (01/07/16 6:03 AM) Weight 61.364 kg (01/06/16 8:20 PM) Body Mass Index 23.22 m2 (01/06/16 8:20 PM) Problem List Condition Effective Dates Status Health Status Informant Abdominal pain(Confirmed) 02/01/11 Active Anxiety(Confirmed) Active Anxiety(Confirmed) Resolved Anxiety disorder1 09/01/13 Active Clostridium difficile(Confirmed)2 08/18/13 Active Depression(Confirmed) Resolved Hepatitis C(Confirmed) Resolved Insomnia3 09/01/13 Active Low back pain4 09/01/13 Active Migraine5 09/01/13 Active Ovarian cyst(Confirmed) Resolved Recurrent depression6 09/01/13 Active 1Data migrated from [employer] on 08/11/14.2Problem added by Discern Expert.3Data migrated from [employer] on 08/11/14.4Data migrated from [employer] on 08/11/14.5Data migrated from [employer] on 08/11/14.6Data migrated from [employer] on 08/11/14. Allergies, Adverse Reactions, Alerts Substance Reaction Severity Status NKDA Active Medications Zofran 4 mg, Route: IVP, Drug form: INJ, ONCE, Dosing Weight 61.364, kg, Priority: STAT , Start date: 01/06/16 22:20:00 CDT, Stop date: 01/06/16 22:20:00 CDT Start Date: 01/06/16 Stop Date: 01/06/16 Status: Completed Results ELECTROLYTES Most recent to oldest [Reference Range]: 1 Sodium Lvl [135-145 mEq/L] 139 mEq/L (01/06/16 10:18 PM) Potassium Lvl [3.5-5.1 mEq/L] 3.7 mEq/L (01/06/16 10:18 PM) Chloride Lvl [95-109 mEq/L] 105 mEq/L (01/06/16 10:18 PM) CO2 [24-32 mEq/L] 25 mEq/L (01/06/16 10:18 PM) AGAP [10.0-20.0 mEq/L] 12.7 mEq/L (01/06/16 10:18 PM) CHEM PANEL Most recent to oldest [Reference Range]: 1 Creatinine Lvl [0.50-1.40 mg/dL] 0.64 mg/dL (01/06/16 10:18 PM) eGFR 114 mL/min/1.73m2 1 *NA* (01/06/16 10:18 PM) BUN [7-22 mg/dL] 7 mg/dL (01/06/16 10:18 PM) B/C Ratio [6-25] 11 (01/06/16 10:18 PM) Glucose Lvl [70-99 mg/dL] 90 mg/dL (01/06/16 10:18 PM) Total Protein [6.4-8.4 g/dL] 6.9 g/dL (01/06/16 10:18 PM) Albumin Lvl [3.5-5.0 g/dL] 3.6 g/dL (01/06/16 10:18 PM) Globulin [2.7-4.2 g/dL] 3.3 g/dL (01/06/16 10:18 PM) A/G Ratio [0.7-1.6] 1.1 (01/06/16 10:18 PM) Calcium Lvl [8.5-10.5 mg/dL] 8.5 mg/dL (01/06/16 10:18 PM) ALT [0-65 unit/L] 55 unit/L (01/06/16 10:18 PM) AST [0-37 unit/L] 53 unit/L *HI* (01/06/16 10:18 PM) Alk Phos [39-136 unit/L] 75 unit/L (01/06/16 10:18 PM) Bili Total [0.2-1.3 mg/dL] 0.5 mg/dL (01/06/16 10:18 PM) 1Result Comment: The eGFR is calculated [...] [Reference Range]: 1 U Amph Scr [Negative] Negative *NA* (01/06/16 9:20 PM) U Jihan Scr [Negative] Negative *NA* (01/06/16 9:20 PM) U Benzodia Scr [Negative] Negative *NA* (01/06/16 9:20 PM) U Cocaine Scr [Negative] Positive *ABN* (01/06/16 9:20 PM) U Opiate Scr [Negative] Positive *ABN* (01/06/16 9:20 PM) U Phencyc Scr [Negative] Negative *NA* (01/06/16 9:20 PM) U Cannab Scr [Negative] Negative *NA* (01/06/16 9:20 PM) UDS Note See Note (01/06/16 9:20 PM) TOXICOLOGY Most recent to oldest [Reference Range]: 1 Acetaminoph Lvl [10-20 ug/ml] <2 ug/ml *LOW* (01/06/16 10:18 PM) Salicylate Lvl [0.0-30.0 mg/dL] <1.7 mg/dL (01/06/16 10:18 PM) Etoh (%) <.003 % *NA* (01/06/16 10:18 PM) Ethanol Lvl <3 mg/dL *NA* (01/06/16 10:18 PM) URINE CHEM Most recent to oldest [Reference Range]: 1 U Preg [Negative] Negative (01/06/16 9:20 PM) URINE AND STOOL Most recent to oldest [Reference Range]: 1 UA Turbidity [Clear] Clear (01/06/16 9:20 PM) UA Color [Yellow] Yellow *NA* (01/06/16 9:20 PM) UA pH [5.0-8.0] 8.0 (01/06/16 9:20 PM) UA Spec Grav [<=1.030] 1.015 (01/06/16 9:20 PM) UA Glucose [Negative mg/dL] Negative mg/dL (01/06/16 9:20 PM) UA Blood [Negative] Negative (01/06/16 9:20 PM) UA Ketones [Negative mg/dL] Negative mg/dL *NA* (01/06/16 9:20 PM) UA Protein [Negative mg/dL] Negative mg/dL (01/06/16 9:20 PM) UA Urobilinogen [0.1-1.0 EU/dL] 1.0 EU/dL (01/06/16 9:20 PM) UA Bili [Negative] Negative *NA* (01/06/16 9:20 PM) UA Leuk Est [Negative] Negative (01/06/16 9:20 PM) UA Nitrite [Negative] Negative (01/06/16 9:20 PM) UA WBC [None Seen /HPF] 0-2 /HPF (01/06/16 9:20 PM) UA RBC [0-2 /HPF] 0-2 /HPF (01/06/16 9:20 PM) UA Bacteria [None Seen /HPF] Few /HPF (01/06/16 9:20 PM) UA Sq Epi [Few /LPF] Few /LPF (01/06/16 9:20 PM) UA Mucus [None Seen /LPF] Rare /LPF (01/06/16 9:20 PM) HEMATOLOGY Most recent to oldest [Reference Range]: 1 WBC [3.7-10.4 K/CMM] 7.3 K/CMM (01/06/16 10:18 PM) RBC [4.20-5.40 M/CMM] 4.42 M/CMM (01/06/16 10:18 PM) Hgb [12.0-16.0 g/dL] 14.2 g/dL (01/06/16 10:18 PM) Hct [36.0-48.0 %] 40.8 % (01/06/16 10:18 PM) MCV [80.0-98.0 fL] 92.3 fL (01/06/16 10:18 PM) MCH [27.0-31.0 pg] 32.2 pg *HI* (01/06/16 10:18 PM) MCHC [32.0-36.0 g/dL] 34.9 g/dL (01/06/16 10:18 PM) RDW [11.5-14.5 %] 13.2 % (01/06/16 10:18 PM) Platelet [133-450 K/CMM] 316 K/CMM (01/06/16 10:18 PM) MPV [7.4-10.4 fL] 7.2 fL *LOW* (01/06/16 10:18 PM) Segs [45.0-75.0 %] 61.3 % (01/06/16 10:18 PM) Lymphocytes [20.0-40.0 %] 29.2 % (01/06/16 10:18 PM) Monocytes [2.0-12.0 %] 7.2 % (01/06/16 10:18 PM) Eosinophils [0.0-4.0 %] 0.9 % (01/06/16 10:18 PM) Basophils [0.0-1.0 %] 1.4 % *HI* (01/06/16 10:18 PM) Segs-Bands # [1.5-8.1 K/CMM] 4.5 K/CMM (01/06/16 10:18 PM) Lymphocytes # [1.0-5.5 K/CMM] 2.1 K/CMM (01/06/16 10:18 PM) Monocytes # [0.0-0.8 K/CMM] 0.5 K/CMM (01/06/16 10:18 PM) Eosinophils # [0.0-0.5 K/CMM] 0.1 K/CMM (01/06/16 10:18 PM) Basophils # [0.0-0.2 K/CMM] 0.1 K/CMM (01/06/16 10:18 PM) Immunizations No data available for this section [...]
--- OUTSIDE RECORDS SUMMARY | 2017-11-01 10:19 | XMS REPORT | Summary of Care ---
:1980 Author Organization [facility] Address [facility] [place], [place] [address]- Encounter HQ Elaine(MARIZA) [id number] Date(s): 03/02/17 - 03/02/[address] [address]- Discharge Diagnosis: Abdominal pain, acute, right lower quadrant Discharge Diagnosis: History of ovarian cyst Discharge Diagnosis: Ovarian cyst, right Discharge Diagnosis: History of cervical cancer Discharge Diagnosis: History of medication noncompliance Discharge Disposition: Home or Self Care Attending Physician: Pavan Zuniga MD Vital Signs Most recent to oldest [Reference Range]: 1 2 Height 165.1 cm (03/02/17 2:10 PM) Temperature Oral [96.4-99.1 DegF] 98.1 DegF 98.3 DegF (03/02/17 6:06 PM) (03/02/17 2:10 PM) Blood Pressure [90-140/60-90 mmHg] 112/72 mmHg 107/79 mmHg (03/02/17 6:06 PM) (03/02/17 2:10 PM) Respiratory Rate [14-20 BRMIN] 18 BRMIN 18 BRMIN (03/02/17 6:06 PM) (03/02/17 2:10 PM) Peripheral Pulse Rate [60-100 bpm] 81 bpm 89 bpm (03/02/17 6:06 PM) (03/02/17 2:10 PM) Weight 75.364 kg (03/02/17 2:10 PM) Body Mass Index 27.65 m2 (03/02/17 2:10 PM) Problem List Condition Effective Dates Status [...] Reaction Severity Status NKDA Active Medications Motrin 600 mg oral tablet 600 mg=1 tab, PO, Q6H, PRN Pain, take with food, # 10 tab, 0 Refill(s) Start Date: 03/02/17 Stop Date: 03/03/17 Status: CompletedNS (Bolus) IV 1,000 mL, 1,000 ml/hr, Infuse Over: 1 hr, Route: IV, 1,000, Drug form: INJ, ONCE , Priority: STAT, Dosing Weight 75.364 kg, Start date: 03/02/17 15:34:00 AIRSET MOLDER, Stop date: 03/02/17 15:34:00 AIRSET MOLDER Start Date: 03/02/17 Stop Date: 03/02/17 Status: CompletedOmnipaque 300 injectable solution 85 mL, Route: IVP, Drug Form: SOLN, Dosing Weight 75.364, kg, ONCALL, GFR > 45 mL/min, STAT, Start date: 03/02/17 17:08:00 AIRSET MOLDER, Duration: 1 doses or times, Stop date: 03/02/17 21:00:00 AIRSET MOLDER Notes: (Same as:Omnipaque 300).WASTE: F/P - Black; E - Municipal Trash Bin Start Date: 03/02/17 Stop Date: 03/02/17 Status: Completed Results ELECTROLYTES Most recent to oldest [Reference Range]: 1 Sodium Lvl [135-145 mEq/L] 136 mEq/L (03/02/17 4:28 PM) Potassium Lvl [3.5-5.1 mEq/L] 4.0 mEq/L (03/02/17 4:28 PM) Chloride Lvl [95-109 mEq/L] 103 mEq/L (03/02/17 4:28 PM) CO2 [24-32 mEq/L] 23 mEq/L *LOW* (03/02/17 4:28 PM) AGAP [10.0-20.0 mEq/L] 14.0 mEq/L (03/02/17 4:28 PM) CHEM PANEL Most recent to oldest [Reference Range]: 1 Creatinine Lvl [0.50-1.40 mg/dL] 0.80 mg/dL (03/02/17 4:28 PM) eGFR 94 mL/min/1.73m2 1 *NA* (03/02/17 4:28 PM) BUN [7-22 mg/dL] 13 mg/dL (03/02/17 4:28 PM) Glucose Lvl [70-99 mg/dL] 86 mg/dL (03/02/17 4:28 PM) Calcium Lvl [8.5-10.5 mg/dL] 8.5 mg/dL (03/02/17 4:28 PM) 1Result Comment: The eGFR is calculated using the CKD-EPI formula. In most young , healthy individualsthe eGFR will be >90 mL/min/1.73m2. The eGFR declines with age. An eGFR of 60-89 may be normal insome populations, particularly the elderly, for whom the [...] eGFR should be multiplied by the estimated BMI.URINE CHEM Most recent to oldest [Reference Range]: 1 U Preg [Negative] Negative (03/02/17 4:28 PM) URINE AND STOOL Most recent to oldest [Reference Range]: 1 UA Turbidity [Clear] Clear (03/02/17 4:28 PM) UA Color [Yellow] Light Yellow *NA* (03/02/17 4:28 PM) UA pH [5.0-8.0] 6.0 (03/02/17 4:28 PM) UA Spec Grav [<=1.030] 1.019 (03/02/17 4:28 PM) UA Glucose [Negative mg/dL] Negative mg/dL *NA* (03/02/17 4:28 PM) UA Blood [Negative] Negative (03/02/17 4:28 PM) UA Ketones [Negative mg/dL] Negative mg/dL *NA* (03/02/17 4:28 PM) UA Protein [Negative mg/dL] Negative mg/dL (03/02/17 4:28 PM) UA Urobilinogen [0.1-1.0 mg/dL] <=1.0 mg/dL *NA* (03/02/17 4:28 PM) UA Bili [Negative] Negative *NA* (03/02/17 4:28 PM) UA Leuk Est [Negative] Negative (03/02/17 4:28 PM) UA Nitrite [Negative] Negative (03/02/17 4:28 PM) UA WBC [0-5 /HPF] 1 /HPF (03/02/17 4:28 PM) UA Bacteria [None Seen /HPF] Few /HPF *NA* (03/02/17 4:28 PM) UA Sq Epi [Few /LPF] Moderate /LPF *ABN* (03/02/17 4:28 PM) UA Mucus [None Seen /LPF] Few /LPF *NA* (03/02/17 4:28 PM) HEMATOLOGY Most recent to oldest [Reference Range]: 1 WBC [3.7-10.4 K/CMM] 5.9 K/CMM (03/02/17 4:28 PM) RBC [4.20-5.40 M/CMM] 4.45 M/CMM (03/02/17 4:28 PM) Hgb [12.0-16.0 g/dL] 14.2 g/dL (03/02/17 4:28 PM) Hct [36.0-48.0 %] 42.4 % (03/02/17 4:28 PM) MCV [80.0-98.0 fL] 95.3 fL (03/02/17 4:28 PM) MCH [27.0-31.0 pg] 32.0 pg *HI* (03/02/17 4:28 PM) MCHC [32.0-36.0 g/dL] 33.6 g/dL (03/02/17 4:28 PM) RDW [11.5-14.5 %] 13.5 % (03/02/17 4:28 PM) Platelet [133-450 K/CMM] 262 K/CMM (03/02/17 4:28 PM) MPV [7.4-10.4 fL] 8.0 fL (03/02/17 4:28 PM) Segs [45.0-75.0 %] 45.5 % (03/02/17 4:28 PM) Lymphocytes [20.0-40.0 %] 41.7 % *HI* (03/02/17 4:28 PM) Monocytes [2.0-12.0 %] 6.8 % (03/02/17 4:28 PM) Eosinophils [0.0-4.0 %] 4.3 % *HI* (03/02/17 4:28 PM) Basophils [0.0-1.0 %] 1.7 % *HI* (03/02/17 4:28 PM) Segs-Bands # [1.5-8.1 K/CMM] 2.7 K/CMM (03/02/17 4:28 PM) Lymphocytes # [1.0-5.5 K/CMM] 2.5 K/CMM (03/02/17 4:28 PM) Monocytes # [0.0-0.8 K/CMM] 0.4 K/CMM (03/02/17 4:28 PM) Eosinophils # [0.0-0.5 K/CMM] 0.3 K/CMM (03/02/17 4:28 PM) Basophils # [0.0-0.2 K/CMM] 0.1 K/CMM (03/02/17 4:28 PM) Immunizations No data available for this [...]
--- OUTSIDE RECORDS SUMMARY | 2017-11-01 10:19 | XMS REPORT | Clinical Summary ---
:1980 Author Organization [facility] Address [facility] [place] [address] Care Team Providers Name Role Phone Unavailable [...] MD Tooth pain ( Primary Dx) after 09/13/2016 Immunizations Name Dates Previously Given Next Due [...] Taken Blood Pressure 115/67 03/14/2017 10:26 AM SWING SAW OPERATOR Pulse 81 03/14/2017 10:26 AM SWING SAW OPERATOR Temperature 36.6 C (97.9 F) 03/14/2017 10:26 AM SWING SAW OPERATOR Respiratory Rate 22 03/14/2017 10:26 AM SWING SAW OPERATOR Oxygen Saturation 100% 03/14/2017 10:26 AM SWING SAW OPERATOR Inhaled Oxygen Concentration - - Weight - - Height - - Body Mass Index - - Plan of Treatment Health Maintenance Due Date Last Done Comments CERVICAL CANCER SCRN (3 YRS) 06/29/1999 Results Not on fileafter 09/13/2016
--- OUTSIDE RECORDS SUMMARY | 2017-11-01 10:19 | XMS REPORT | Summary of Care ---
:1980 Author Organization [facility] Address [facility] [place], [place] [address]- Encounter HQ Antonieta_dylan(MARIZA) [id number] Date(s): 03/14/16 - 03/14/[address] [address]- Discharge Disposition: DC/TF To Psych Hosp Attending Physician: Fred Bundy MD Vital Signs Most recent to oldest [Reference 1 2 3 Range]: Temperature Oral [96.4-99.1 DegF] 98 DegF 98.4 DegF 98.0 DegF (03/15/16 9:00 PM) (03/15/16 3:00 PM) (03/15/16 10:43 AM) Blood Pressure [90-140/60-90 110/85 mmHg 107/74 mmHg 98/62 mmHg mmHg] (03/15/16 9:00 PM) (03/15/16 7:15 PM) (03/15/16 3:00 PM) Respiratory Rate [14-20 BRMIN] 18 BRMIN 16 BRMIN 16 BRMIN (03/15/16 9:00 PM) (03/15/16 7:15 PM) (03/15/16 3:00 PM) Peripheral Pulse Rate [60-100 80 bpm 86 bpm 89 bpm bpm] (03/15/16 9:00 PM) (03/15/16 7:15 PM) (03/15/16 3:00 PM) Weight 63.636 kg (03/14/16 3:47 PM) Problem List Condition Effective Dates Status Health Status Informant Abdominal pain(Confirmed) 02/01/11 Active Anxiety(Confirmed) Active Anxiety(Confirmed) Resolved Anxiety disorder1 09/01/13 Active Clostridium difficile(Confirmed)2 6/9/14 Active Depression(Confirmed) Resolved Hepatitis C(Confirmed) Resolved Insomnia3 [...] PO, Drug form: TAB, ONCE, Dosing Weight 63.636, kg, Priority: STAT , Start date: 03/15/16 15:13:00 MANAGER DOCUMENT, Stop date: 03/15/16 15:13:00 MANAGER DOCUMENT Start Date: 03/15/16 Stop Date: 03/15/16 Status: CompletedBenadryl 25 mg, 0.5 mL, Route: IM, Drug form: INJ, ONCE, Dosing Weight 63.636, kg, Priority: STAT, Start date: 03/14/16 16:15:00 MANAGER DOCUMENT, Stop date: 03/14/16 16:15:00 MANAGER DOCUMENT Notes: (Same as: Benadryl) Start Date: 03/14/16 Stop Date: 03/14/16 Status: Completedhaloperidol 5 mg, 1 mL, Route: IM, Drug form: INJ, ONCE, Dosing Weight 63.636, kg, Priority : STAT, Start date: 03/14/16 16:16:00 MANAGER DOCUMENT, Stop date: 03/14/16 16:16:00 MANAGER DOCUMENT Notes: (Same as: Haldol) Start Date: 03/14/16 Stop Date: 03/14/16 Status: Completedpotassium chloride 40 mEq, Route: PO, Drug form: ERTAB, ONCE, Dosing Weight 63.636, kg, Priority: STAT, Start date: 03/15/16 15:13:00 MANAGER DOCUMENT, Stop date: 03/15/16 15:13:00 MANAGER DOCUMENT Start Date: 03/15/16 Stop Date: 03/15/16 Status: Completedpotassium chloride 20 mEq/15 mL oral liquid 40 mEq, Route: PO, ONCE, Dosing Weight 63.636, kg, Start date: 03/14/16 22:56: 00 MANAGER DOCUMENT, Stop date: 03/14/16 22:56:00 MANAGER DOCUMENT Start Date: 03/14/16 Stop Date: 03/14/16 Status: CompletedRobitussin-DM 5 mL, Route: PO, Drug Form: SYRP, Dosing Weight 63.636, kg, ONCE, STAT, Start date: 03/15/16 9:35:00CST, Stop date: 03/15/16 9:35:00 MANAGER DOCUMENT Notes: (dextromethorphan-guaifenesin 10-100mg/5ml 10 ml oral SOLN ud) (Same as: Robitussin DM) Start Date: 03/15/16 Stop Date: 03/15/16 Status: CompletedSodium Chloride 0.9% (Bolus) IV 1,000 mL, 2,000 ml/hr, Infuse Over: 30 minutes, Route: IV, 1,000, Drug form: INJ , ONCE, Priority: STAT, Dosing Weight 63.636 kg, Start date: 03/14/16 18:40:00 MANAGER DOCUMENT, Duration: 1 doses or times, Stop date: 03/14/16 18:40:00 MANAGER DOCUMENT Start Date: 03/14/16 Stop Date: 03/14/16 Status: Discontinued Results ELECTROLYTES Most recent to oldest [Reference Range]: 1 Sodium Lvl [135-145 mEq/L] 140 mEq/L (03/14/16 5:14 PM) Potassium Lvl [3.5-5.1 mEq/L] 3.2 mEq/L *LOW* (03/14/16 5:14 PM) Chloride Lvl [95-109 mEq/L] 105 mEq/L (03/14/16 5:14 PM) CO2 [24-32 mEq/L] 23 mEq/L *LOW* (03/14/16 5:14 PM) AGAP [10.0-20.0 mEq/L] 15.2 mEq/L (03/14/16 5:14 PM) CHEM PANEL Most recent to oldest [Reference Range]: 1 Creatinine Lvl [0.50-1.40 mg/dL] 0.79 mg/dL (03/14/16 5:14 PM) eGFR 95 mL/min/1.73m2 1 *NA* (03/14/16 5:14 PM) BUN [7-22 mg/dL] 5 mg/dL *LOW* (03/14/16 5:14 PM) B/C Ratio [6-25] 6 (03/14/16 5:14 PM) Glucose Lvl [70-99 mg/dL] 91 mg/dL (03/14/16 5:14 PM) Total Protein [6.4-8.4 g/dL] 6.5 g/dL (03/14/16 5:14 PM) Albumin Lvl [3.5-5.0 g/dL] 3.3 g/dL *LOW* (03/14/16 5:14 PM) Globulin [2.7-4.2 g/dL] 3.2 g/dL (03/14/16 5:14 PM) A/G Ratio [0.7-1.6] 1.0 (03/14/16 5:14 PM) Calcium Lvl [8.5-10.5 mg/dL] 8.6 mg/dL (03/14/16 5:14 PM) ALT [0-65 unit/L] 43 unit/L (03/14/16 5:14 PM) AST [0-37 unit/L] 31 unit/L (03/14/16 5:14 PM) Alk Phos [39-136 unit/L] 59 unit/L (03/14/16 5:14 PM) Bili Total [0.2-1.3 mg/dL] 0.4 mg/dL (03/14/16 5:14 PM) Lipase Lvl [73-393 unit/L] 258 unit/L (03/14/16 5:14 PM) 1Result Comment: The eGFR is calculated [...] 1 U Amph Scr [Negative] Negative *NA* (03/14/16 7:24 PM) U Jihan Scr [Negative] Negative *NA* (03/14/16 7:24 PM) U Benzodia Scr [Negative] Positive *ABN* (03/14/16 7:24 PM) U Cocaine Scr [Negative] Positive *ABN* (03/14/16 7:24 PM) U Opiate Scr [Negative] Negative *NA* (03/14/16 7:24 PM) U Phencyc Scr [Negative] Negative *NA* (03/14/16 7:24 PM) U Cannab Scr [Negative] Negative *NA* (03/14/16 7:24 PM) UDS Note See Note (03/14/16 7:24 PM) TOXICOLOGY Most recent to oldest [Reference Range]: 1 Acetaminoph Lvl [10-20 ug/ml] <2 ug/ml *LOW* (03/14/16 5:14 PM) Salicylate Lvl [0.0-30.0 mg/dL] 1.7 mg/dL (03/14/16 5:14 PM) Etoh (%) .041 % *NA* (03/14/16 5:14 PM) Ethanol Lvl 41 mg/dL *NA* (03/14/16 5:14 PM) ENDOCRINOLOGY Most recent to oldest [Reference Range]: 1 S Preg [Negative] Negative *NA* (03/14/16 5:14 PM) URINE AND STOOL Most recent to oldest [Reference Range]: 1 UA Turbidity [Clear] Moderate *ABN* (03/14/16 7:24 PM) UA Color Paulina *NA* (03/14/16 7:24 PM) UA pH [5.0-8.0] 5.0 (03/14/16 7:24 PM) UA Spec Grav [<=1.030] 1.015 (03/14/16 7:24 PM) UA Glucose [Negative mg/dL] Negative mg/dL *NA* (03/14/16 7:24 PM) UA Blood [Negative] Negative (1/3/17 7:24 PM) UA Ketones [Negative mg/dL] Negative mg/dL *NA* (03/14/16 7:24 PM) UA Protein [Negative mg/dL] 30 mg/dL *ABN* (03/14/16 7:24 PM) UA Urobilinogen [0.1-1.0 mg/dL] 4.0 mg/dL *HI* (03/14/16 7:24 PM) UA Bili [Negative] Negative *NA* (03/14/16 7:24 PM) UA Leuk Est [Negative] Trace *ABN* (03/14/16 7:24 PM) UA Nitrite [Negative] Negative (03/14/16 7:24 PM) UA Sq Epi None Seen *NA* (03/14/16 7:24 PM) UA Mucus [None Seen /LPF] Few /LPF *NA* (03/14/16 7:24 PM) HEMATOLOGY Most recent to oldest [Reference Range]: 1 WBC [3.7-10.4 K/CMM] 9.8 K/CMM (03/14/16 5:14 PM) RBC [4.20-5.40 M/CMM] 4.31 M/CMM (03/14/16 5:14 PM) Hgb [12.0-16.0 g/dL] 13.8 g/dL (03/14/16 5:14 PM) Hct [36.0-48.0 %] 40.7 % (03/14/16 5:14 PM) MCV [80.0-98.0 fL] 94.4 fL (03/14/16 5:14 PM) MCH [27.0-31.0 pg] 32.0 pg *HI* (03/14/16 5:14 PM) MCHC [32.0-36.0 g/dL] 33.9 g/dL (03/14/16 5:14 PM) RDW [11.5-14.5 %] 12.8 % (03/14/16 5:14 PM) Platelet [133-450 K/CMM] 312 K/CMM (03/14/16 5:14 PM) MPV [7.4-10.4 fL] 7.5 fL (03/14/16 5:14 PM) Segs [45.0-75.0 %] 77.1 % *HI* (03/14/16 5:14 PM) Lymphocytes [20.0-40.0 %] 17.4 % *LOW* (03/14/16 5:14 PM) Monocytes [2.0-12.0 %] 4.4 % (03/14/16 5:14 PM) Eosinophils [0.0-4.0 %] 0.4 % (03/14/16 5:14 PM) Basophils [0.0-1.0 %] 0.7 % (03/14/16 5:14 PM) Segs-Bands # [1.5-8.1 K/CMM] 7.6 K/CMM (03/14/16 5:14 PM) Lymphocytes # [1.0-5.5 K/CMM] 1.7 K/CMM (03/14/16 5:14 PM) Monocytes # [0.0-0.8 K/CMM] 0.4 K/CMM (03/14/16 5:14 PM) Eosinophils # [0.0-0.5 K/CMM] 0.0 K/CMM (03/14/16 5:14 PM) Basophils # [0.0-0.2 K/CMM] 0.1 K/CMM (03/14/16 5:14 PM) Immunizations No data available for this [...]
--- OUTSIDE RECORDS SUMMARY | 2017-11-01 10:19 | XMS REPORT | Clinical Summary ---
:1980 Author Organization [facility] Address [facility] [place] [address] Care Team Providers Name Role Phone Unavailable [...] MD Tooth pain ( Primary Dx) after 09/02/2016 Immunizations Name Dates Previously Given Next Due [...] Taken Blood Pressure 115/67 03/14/2017 10:26 AM CAR RECORD CLERK Pulse 81 03/14/2017 10:26 AM CAR RECORD CLERK Temperature 36.6 C (97.9 F) 03/14/2017 10:26 AM CAR RECORD CLERK Respiratory Rate 22 03/14/2017 10:26 AM CAR RECORD CLERK Oxygen Saturation 100% 03/14/2017 10:26 AM CAR RECORD CLERK Inhaled Oxygen Concentration - - Weight - - Height - - Body Mass Index - - Plan of Treatment Health Maintenance Due Date Last Done Comments CERVICAL CANCER SCRN (3 YRS) 06/29/1999 Results Not on fileafter 09/02/2016
--- OUTSIDE RECORDS SUMMARY | 2017-11-01 10:20 | XMS REPORT ---
:1980 Author [facility] Address [facility] [place] [address] [place] [id number] Care Team Providers Name Role Phone UNKNOWN, REFFERING Primary Care Provider Unavailable JOSE DANIEL LYLE Unavailable Unavailable RISHI HENLEY M.D. Unavailable Unavailable Problems This patient has no known problems. Allergies, Adverse Reactions, Alerts This patient has no known allergies or adverse reactions. Medications This patient has no known medications. Encounters Start End Encounter Admission Attending Care Care Encounter Date/Time Date/Time Type Type Clinicians Facility Department ID 2016-08-02 Inpatient [facility] [id number] 11:01:54 2016-07-29 Inpatient [facility] [id number] 16:45:00 2017-07-07 2017-07-07 [facility] [id number] 13:49:00 13:49:00 Jackson [facility] 2017-03-14 2017-03-14 Emergency [facility] [id number] 11:10:12 11:10:12 2016-08-22 2016-08-22 Outpatient [facility] [id number] 00:00:00 00:00:00 2016-07-28 2016-07-28 Emergency [facility] [id number] 08:22:00 08:22:00 2016-07-28 2016-07-28 Emergency [facility] [id number] 07:03:31 07:03:31 2016-07-28 2016-07-28 Emergency [facility] [id number] 00:00:00 00:00:00 Results Test Description Test Time Test Comments Text Results Atomic Results Result Comments ACETAMINOPHEN LEVEL 2017-10-15 05:12:00 Test Item Value Reference Range Comments ACETAMINOPHEN LEVEL (BEAKER) (test jhci=100) < ug/mL 10.0-30.0 URINALYSIS W/ [id number] 05:08:00 Test Item Value Reference Range Comments COLOR (BEAKER) (test ecjo=795) Yellow CLARITY (BEAKER) (test juvm=221) Clear SPECIFIC GRAVITY UA (BEAKER) (test zvff=671) >= 1.001-1.035 PH UA (BEAKER) (test falm=059) 5.5 5.0-8.0 PROTEIN UA (BEAKER) (test ishz=871) Trace Negative GLUCOSE UA (BEAKER) (test suxv=078) Negative Negative KETONES UA (BEAKER) (test stvf=550) 15 mg/dL Negative BILIRUBIN UA (BEAKER) (test xjcv=287) Positive Negative BLOOD UA (BEAKER) (test lbcm=757) Negative Negative NITRITE UA (BEAKER) (test bxxa=404) Negative Negative LEUKOCYTE ESTERASE UA (BEAKER) (test txbm=600) Negative Negative UROBILINOGEN UA (BEAKER) (test zbzb=869) 0.2 mg/dL 0.2-1.0 BACTERIA (BEAKER) (test bycl=432) Occasional RBC UA-MANUAL (BEAKER) (test drtb=3984) <5 /HPF WBC UA-MANUAL (BEAKER) (test nevb=9228) <5 /HPF SQUAMOUS EPITHELIAL MANUAL (BEAKER) (test <5 /HPF fstq=8010) SOURCE(BEAKER) (test yivw=3745) TROPONIN [id number] 05:08:00 Test Item Value Reference Range Comments TROPONIN I (BEAKER) (test knpe=259) < ng/mL 0.00-0.15 Troponin I (TnI) levels must be interpreted [...] failure, acidosis, acute neurological disease, and persistent tachyarrhythmia.HEPATIC FUNCTION [id number] 05:01: 00 Test Item Value Reference Range Comments TOTAL PROTEIN (BEAKER) (test xtuz=945) 7.3 gm/dL 6.0-8.5 ALBUMIN (BEAKER) (test hggm=3147) 4.3 g/dL 3.5-5.0 BILIRUBIN TOTAL (BEAKER) (test sgqk=352) 0.6 mg/dL 0.1-1.2 BILIRUBIN DIRECT (BEAKER) (test emzv=798) 0.3 mg/dL 0.0-0.4 ALKALINE PHOSPHATASE (BEAKER) (test udoy=150) 50 U/L 30-115 AST (SGOT) (BEAKER) (test sddi=247) 47 U/L 5-40 ALT (SGPT) (BEAKER) (test kerk=450) 43 U/L 5-50 RAPID DRUG SCREEN, [id number] 05:00:00 Test Item Value Reference Range Comments BARBITURATE URINE (BEAKER) (test upgn=715) Negative Negative BENZODIAZEPINE SCREEN URINE (BEAKER) (test Positive Negative tgvu=979) COCAINE (METAB.) SCREEN (BEAKER) (test hkud=7832) Positive Negative METHADONE SCREEN (BEAKER) (test wxdk=5176) Negative Negative OPIATE SCREEN URINE (BEAKER) (test wult=722) Positive Negative CANNABINOID SCREEN URINE (BEAKER) (test fpha=530) Negative Negative AMPH/METHAMPH SCREEN (BEAKER) (test zlho=6909) Positive Negative PHENCYCLIDINE SCREEN URINE (BEAKER) (test hetr=749) Negative Negative DRUG CUTOFF CONC.Cocaine 300 ng/mL Cannabinoid 50 ng/mLBenzodiazepine 200 ng/mLBarbiturate 200 ng/ mLPhencyclidine 25 ng/mLOpiate 300 ng/mLMethadone 300 ng/mLAmphetamine/ 1000 ng/mL MethamphetamineThis assay provides an unconfirmed qualitative test result for the clinical management of patients in emergency situations. Chain of custody not maintained. Some jdoc-uzc-orjygxx medications, as well as adulterants, may cause inaccurate results. Clinical correlation should be applied. A more comprehensivedrug screen or confirmation of a detected drug may be performed upon request.[id number] 05:00:00 Test Item Value Reference Range Comments ETHANOL (BEAKER) (test jzvb=335) 65 mg/dL <=10 SALICYLATE [id number] 05:00:00 Test Item Value Reference Range Comments SALICYLATE LEVEL (BEAKER) (test dsef=017) < mg/dL 20.0-30.0 BASIC METABOLIC [id number] 04:59:00 Test Item Value Reference Range Comments SODIUM (BEAKER) (test 137 meq/L 135-148 krxz=361) POTASSIUM (BEAKER) (test 3.6 meq/L 3.6-5.5 arnv=432) CHLORIDE (BEAKER) (test 104 meq/L 98-106 wcre=902) CO2 (BEAKER) (test 21 meq/L 20-29 bsru=012) BLOOD UREA NITROGEN 13 mg/dL 10-26 (BEAKER) (test dihe=296) CREATININE (BEAKER) (test 0.84 mg/dL 0.50-1.20 gnlb=257) GLUCOSE RANDOM (BEAKER) 85 mg/dL 70-110 (test kbvc=197) CALCIUM (BEAKER) (test 9.5 mg/dL 8.5-10.5 uuhw=495) EGFR (BEAKER) (test 75 mL/min/1.73 sq m ESTIMATED GFR IS NOT qshw=7085) ACCURATE CREATININE CLEARANCE IN PREDICTING GLOMERULAR FILTRATION RATE. ESTIMATED GFR IS NOT APPLICABLE FOR DIALYSIS PATIENTS. CBC W/PLT COUNT & AUTO [id number] 04:42:00 Test Item Value Reference Range Comments WHITE BLOOD CELL COUNT (BEAKER) (test afep=909) 8.1 K/ L 4.0-10.0 RED BLOOD CELL COUNT (BEAKER) (test zyzh=933) 4.40 M/ L 4.00-5.00 HEMOGLOBIN (BEAKER) (test undt=066) 14.5 GM/DL 12.0-15.0 HEMATOCRIT (BEAKER) (test roko=158) 42.4 % 36.0-45.0 MEAN CORPUSCULAR VOLUME (BEAKER) (test vfon=846) 96.4 fL 82.0-99.0 MEAN CORPUSCULAR HEMOGLOBIN (BEAKER) (test 32.9 pg 27.0-33.0 eula=771) MEAN CORPUSCULAR HEMOGLOBIN CONC (BEAKER) (test 34.1 GM/DL 32.0-36.0 xijb=713) RED CELL DISTRIBUTION WIDTH (BEAKER) (test 13.7 % 10.3-14.2 mtls=983) PLATELET COUNT (BEAKER) (test aufo=169) 266 K/CU MM 150-430 MEAN PLATELET VOLUME (BEAKER) (test uywz=427) 7.8 fL 6.5-10.5 NUCLEATED RED BLOOD CELLS (BEAKER) (test 0 /100 WBC 0-0 hxiq=989) NEUTROPHILS RELATIVE PERCENT (BEAKER) (test 80 % eyhz=395) LYMPHOCYTES RELATIVE PERCENT (BEAKER) (test 15 % zbpg=417) MONOCYTES RELATIVE PERCENT (BEAKER) (test 4 % ibjo=145) EOSINOPHILS RELATIVE PERCENT (BEAKER) (test 1 % hfzt=314) BASOPHILS RELATIVE PERCENT (BEAKER) (test 1 % fevd=444) NEUTROPHILS ABSOLUTE COUNT (BEAKER) (test 6.50 K/ L 1.80-8.00 qzut=079) LYMPHOCYTES ABSOLUTE COUNT (BEAKER) (test 1.20 K/ L 1.48-4.50 djjb=116) MONOCYTES ABSOLUTE COUNT (BEAKER) (test 0.40 K/ L 0.00-1.30 jxke=232) EOSINOPHILS ABSOLUTE COUNT (BEAKER) (test 0.10 K/ L 0.00-0.50 bssh=233) BASOPHILS ABSOLUTE COUNT (BEAKER) (test 0.00 K/ L 0.00-0.20 nvpn=501) RPR, [id number] 03:56:00 Test Item Value Reference Range Comments RPR (test code=RPR) Non-Reactive Non-Reactive Urinalysis [id number] 10:38:00 Test Item Value Reference Range Comments Color (test code=COLOR) Yellow Yellow,Straw,Pl yellow Clarity (test code=CLAR) Sl Cloudy Clear Specific Banner (test code=SPGR) 1.020 1.001-1.035 pH (test code=PH) 7.0 5.0-9.0 Ketone (test code=KET) 15 mg/dL Negative Glucose (test code=GLUCUR) Negative mg/dL Negative Protein (test code=PROT) Negative mg/dL Negative Bilirubin (test code=BILI) Negative mg/dL Negative Occult Blood (test code=UDOB) Negative Negative Urobilinogen (test code=UROB) 1.0 mg/dL 0.2-1.0 Nitrite (test code=NIT) Negative Negative Leuk Esterase (test code=LEUK) Small Negative Micros Exam (test code=MEXAM) Indicated Epithelial Cells (test code=EPI) 15-19 /LPF 0-30 WBC, Urine (test code=UWBC) 2-5 /HPF 0-5 RBC, Urine (test code=URBC) None Seen /HPF 0-5 Bacteria (test code=BACT) Moderate /HPF [id number] 10:07:00 Test Item Value Reference Range Comments Amphetamine (test code=AMPH) Negative Negative For diagnostic purposes only, positive results should always be assessedin conjunctionwith the patient's medical history,clinical examination and otherfindings.To fulfill legal requirements, a more specific alternate chemical methodmust be used inorder to obtain a Confirmed analytical result. GC/MS is the preferred confirmatory method. Barbiturates (test code=JOSEPH) Negative Negative Benzodiazepine (test Negative Negative code=TONIA) Cocaine (test code=COCA) Negative Negative Methadone (test code=MTHD) Negative Negative Opiates (test code=OPIA) Negative Negative PCP (test code=PCP) Negative Negative Propoxyphene (test Negative Negative code=PROPOX) THC (test code=THC) Negative Negative Alcohol, Urine (test <0.01 g/dL 0.00-0.01 code=ETOHU) Comprehensive Metabolic [id number] 09:59:00 Test Item Value Reference Range Comments Sodium (test code=NA) 139 mmol/L 135-145 Potassium (test code=K) 4.0 mmol/L 3.5-5.1 Chloride (test code=CL) 101 mmol/L 98-105 Carbon Dioxide (test 23 mmol/L 22-29 code=CO2) Glucose (test code=GLU) 86 mg/dL 70-115 Blood Urea Nitrogen 8 mg/dL 6-20 (test code=BUN) Creatinine (test 0.8 mg/dL 0.5-0.9 code=CREAT) Calcium (test code=CA) 9.3 mg/dL 8.3-10.5 Prot Total (test 6.3 g/dL 6.4-8.3 code=TP) Albumin (test code=ALB) 4.3 g/dL 3.5-5.2 A/G Ratio (test 2.2 Ratio code=AGRATIO) Globulin (test 2.0 2.9-3.1 code=GLOB) Bili Total (test 0.5 mg/dL 0.1-0.9 code=TBIL) Alk Phos (test 43 U/L 35-104 code=APHOS) AST (test code=AST) 28 U/L 1-32 ALT (test code=ALT) 36 U/L 1-33 BUN/Creatinine Ratio 10.0 (test code=BCRATIO) Anion Gap (test 15 mmol/L 7-16 code=AGAP) Estimated GFR (test >60 mL/min/1.73m2 eGFR (estimated Glomerular code=GFR) Filtration Rate) is an estimated value,calculated from the patient's serum creatinine using the MDRD equation.It is NOT the patient's actual GFR. The eGFR provides a more clinicallyuseful measure of kidney disease than serum creatinine alone.This calculation takes sex and race into account, if the informationis provided. If the race is not provided, and the patient isAfrican-Emir[place], multiply by 1.212. If sex is not provided, and thepatient is female, multiply by 0.742. Results for patients <18 years ofage have not been validated by the MDRD study and should be interpretedwith caution.eGFR Result Interpretation:eGFR > or=60 is in the Normal RangeeGFR < 60 may mean kidney diseaseeGFR < 15 may mean kidney failureRanges recommended by the National Kidney Foundation,http://nkdep.nih .gov BHCG, Urine, [id number] 09:50:00 Test Item Value Reference Range Comments Preg Qual [Ur] (test code=HUHCG) Negative Negative CBC with [id number] 09:42:00 Test Item Value Reference Range Comments WBC (test code=WBC) 9.9 K/cumm 4.4-10.5 RBC (test code=RBC) 4.54 M/cumm 3.75-5.20 Hemoglobin (test code=HGB) 15.1 gm/dL 12.2-14.8 Hematocrit (test code=HCT) 43.3 % 36.5-44.4 MCV (test code=MCV) 95.3 fL 80-100 MCH (test code=MCH) 33.2 pg 27.0-32.5 MCHC (test code=MCHC) 34.8 g/dL 32.0-37.5 RDW (test code=RDW) 12.9 % 11.5-14.5 Platelet Count (test code=PLTCT) 264 K/cumm 140-440 MPV (test code=MPV) 10.1 fL Diff Method (test code=DIFFM) Auto Neutrophil (test code=NEUT) 79.9 % 36-70 Lymphocyte (test code=LYMPH) 15.6 % 12-44 Monocyte (test code=MONO) 3.3 % 0-11 Eosinophil (test code=EOS) 0.6 % 0-7 Basophil (test code=BASO) 0.5 % 0-2 Neutro Abs (test code=ANEUT) 7.9 K/cumm 1.6-7.4 Lymph Abs (test code=ALYMPH) 1.5 K/cumm 0.5-4.6 Citrus Abs (test code=AMONO) 0.3 K/cumm 0.0-1.2 Eos Abs (test code=AEOS) 0.06 K/cumm 0.00-0.74 Baso Abs (test code=ABASO) 0.1 K/cumm 0.00-0.21
[2017-11-01 11:01] LABS: Absolute Lymphocytes (CBC) 1.7 K/uL (0.7-4.9); Absolute Monocytes 0.4 K/uL (0.1-1.3); Absolute Neutrophil 3.9 K/uL (1.8-8.0); Eosinophils % 1.1 % (0-4.4); Hematocrit 43.2 % (36.0-45.0); Lymphocytes % 28.1 % (15.3-44.8); MCH 33.1 pg (27.0-35.0); MCV 94.7 fL (80-100); MPV 7.9 fL (7.6-11.3); Monocytes % 6.6 % (3.3-12.3); RBC Red Blood Cell Count 4.56 M/uL (3.86-4.86)
[2017-11-01 11:22] LABS: Barbiturates NEGATIVE (NEGATIVE); Benzodiazepines POSITIVE (NEGATIVE); Cocaine NEGATIVE (NEGATIVE); METHAMPHETAM NEGATIVE (NEGATIVE); Methadone NEGATIVE (NEGATIVE); Opiates NEGATIVE (NEGATIVE); Phencyclidine NEGATIVE (NEGATIVE); THC Cannibis NEGATIVE (NEGATIVE)
[2017-11-01 11:31] LABS: Potassium 4.7 mmol/L (3.5-5.1)
[2017-11-01] MEDS ORDERED: DIAZEPAM 2 MG TABLET ONE (11:37)
[2017-11-01 12:08] LABS: Urine Blood NEGATIVE (NEG); Urine Glucose NEGATIVE (NEG); Urine Protein NEGATIVE (NEG); Urine Specific Gravity 1.015 (1.005-1.030)
--- NOTE | 2017-11-01 15:30 | EDPHYS ---
Physician Documentation [facility] Name: Soraya Crenshaw Age: 37 yrs Sex: Female : 1980 Arrival Date: 11/01/2017 Time: 10:08 Bed 8 Private MD: ED Physician Richard Veras HPI: 11/01 13:09 This 37 yrs old Female presents to ER via EMS with complaints of Shortness Of wa Breath, Suicidal Ideation. 13:09 The patient presents to the emergency department with anxiety, depression, over unknown wa circumstances, suicide ideation, but the patient has no formulated plan, states run out of her valium and her anxiety is worsening. denies chest pain or SOB on direct query by me. Onset: The symptoms/episode began/occurred 5 day(s) ago. Past psychiatric history: Prior diagnosis: depression, anxiety, Psychiatric medications include: valium, Primary psychiatric physician: Dr. Blue, the patient has not had a prior suicide gesture, it is unknown whether or not the patient has a previous inpatient psychiatric history, the patient's last psychiatric treatment was last month. Associated signs and symptoms: Pertinent positives; anxiety, depression, suicide ideation, Pertinent negatives: chest pain, hallucinations, homicidal ideation, shortness of breath, substance abuse. Severity of symptoms: At their worst the symptoms were moderate in the emergency department the symptoms are unchanged. The patient has experienced similar episodes in the past, several times. The patient has not recently seen a physician. states does not have a plan to hurt self. Believes if she can get back on her meds enough to follow up with her psych doc she will feel better. denies imminent. 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 - Social history:: Smoking status: Patient uses tobacco products, smokes one-half pack cigarettes per day, Patient/guardian denies using alcohol, street drugs. - Ebola Screening: : No symptoms or risks identified at this time. - Family history:: not pertinent. - Hospitalizations: : No recent hospitalization is reported. ROS: 13:13 Constitutional: Negative for fever, chills, and weight loss, Eyes: Negative for injury, wa pain, redness, and discharge, ENT: Negative for injury, pain, and discharge, Neck: Negative for injury, pain, and swelling, Cardiovascular: Negative for chest pain, palpitations, and edema, Respiratory: Negative for shortness of breath, cough, wheezing, and pleuritic chest pain, Abdomen/GI: Negative for abdominal pain, nausea, vomiting, diarrhea, and constipation, Back: Negative for injury and pain, : Negative for injury, bleeding, discharge, and swelling, MS/Extremity: Negative for injury and deformity, Skin: Negative for injury, rash, and discoloration, Neuro: Negative for headache, weakness, numbness, tingling, and seizure. 13:13 Psych: Positive for anxiety, depression, suicidal ideation, Negative for drug dependence, alcohol dependence, auditory hallucinations, visual hallucinations, homicidal ideation, suicide gesture. 13:13 All other systems are negative. Exam: 13:14 Constitutional: This is a well developed, well nourished patient who is awake, alert, wa and in no acute distress. Head/Face: Normocephalic, atraumatic. Eyes: Pupils equal round and reactive to light, extra-ocular motions intact. Lids and lashes normal. Conjunctiva and sclera are non-icteric and not injected. Cornea within normal limits. Periorbital areas with no swelling, redness, or edema. ENT: Nares patent. No nasal discharge, no septal abnormalities noted. Tympanic membranes are normal and external auditory canals are clear. Oropharynx with no redness, swelling, or masses, exudates, or evidence of obstruction, uvula midline. Mucous membranes moist. Neck: Trachea midline, no thyromegaly or masses palpated, and no cervical lymphadenopathy. Supple, full range of motion without nuchal rigidity, or vertebral point tenderness. No Meningismus. Cardiovascular: Regular rate and rhythm with a normal S1 and S2. No gallops, murmurs, or rubs. Normal PMI, no JVD. No pulse deficits. Respiratory: Lungs have equal breath sounds bilaterally, clear to auscultation and percussion. No rales, rhonchi or wheezes noted. No increased work of breathing, no retractions or nasal flaring. Abdomen/GI: Soft, non-tender, with normal bowel sounds. No distension or tympany. No guarding or rebound. No evidence of tenderness throughout. Back: No spinal tenderness. No costovertebral tenderness. Full range of motion. Skin: Warm, dry with normal turgor. Normal color with no rashes, no lesions, and no evidence of cellulitis. MS/ Extremity: Pulses equal, no cyanosis. Neurovascular intact. Full, normal range of motion. Neuro: Awake and alert, GCS 15, oriented to person, place, time, and situation. Cranial nerves II-XII grossly intact. Motor strength 5/5 in all extremities. Sensory grossly intact. Cerebellar exam normal. Normal gait. 13:14 Psych: Behavior/mood is pleasant, Affect is calm, Oriented to person, place, time, Patient has no thoughts/intents to harm self or others. Judgement / Insight is normal. Memory is normal. Delusions/hallucinations are not present. Vital Signs: 10:10 BP 124 / 89; Pulse 62; Resp 18 S; Temp 98.0(O); Pulse Ox 98% on R/A; Weight 74.84 kg aa5 (R); Height 5 ft. 3 in. (160.02 cm) (R); Pain 0/10; 14:42 BP 113 / 81; Pulse 86; Resp 18 S; Temp 98.0(TE); Pulse Ox 98% on R/A; Pain 0/10; aa5 10:10 Body Mass Index 29.23 (74.84 kg, 160.02 cm) aa5 MDM: 10:23 Patient medically screened. mn 13:15 Differential diagnosis: low risk by my assessment with direct questioning. will still mn get [facility] to [facility] for out pt resources. will give valium acutely and reassess. will give a few to hold over till sees her doctor for refills. Data reviewed: vital signs, nurses notes, lab test result(s). Test interpretation: by ED physician or midlevel provider: labs noted for positive benzos on UDS. 15:26 Response to treatment: the patient's symptoms have markedly improved after treatment. mn ED course: per [facility] psych. pt may go and f/u as out pt. no criteria for in pt admission. not acutely suicidal at time of d/c. agrees with plan. pleasant. no distress. 11/01 10:41 Order name: Acetaminophen; Complete Time: 13: mn 11/01 10:41 Order name: Basic Metabolic Panel; Complete Time: 13: mn 11/01 10:41 Order name: CBC with Diff; Complete Time: 13: mn 11/01 10:41 Order name: ETOH Level; Complete Time: 12:10 mn 11/01 10:41 Order name: Salicylate; Complete Time: 13: mn 11/01 10:41 Order name: Urine Drug Screen; Complete Time: 12:10 mn 11/01 10:41 Order name: EKG; Complete Time: 10:41 mn 11/01 10:41 Order name: EKG - Nurse/Tech; Complete Time: 10:54 mn 11/01 11:10 Order name: Urine Dipstick--Ancillary (enter results); Complete Time: 12:10 [facility] 11/01 11:10 Order name: Urine --Ancillary (enter results); Complete Time: 12:10 [facility] 11/01 12:01 Order name: Diet Regular; Complete Time: 12:01 aa Administered Medications: 11:36 CANCELLED ( changed route ): Valium 2 mg IVP once aa 11:37 Drug: Valium 2 mg Route: PO; aa5 12:03 Follow up: Response: No adverse reaction aa5 Disposition: 11/01/17 15:29 Discharged to Home. Impression: Anxiety, Suicidal ideation. - Condition is Stable. - Discharge Instructions: Suicidal Feelings: How to Help Yourself, Generalized Anxiety Disorder. - Prescriptions for Klonopin 0.5 mg Oral Tablet - take 1 tablet by ORAL route every 12 hours As needed; 20 tablet. - Medication Reconciliation Form, Thank You Letter, Antibiotic Education, Prescription Opioid Use form. - Follow up: Private Physician; Reason: Re-evaluation by your physician. - Problem is an acute exacerbation. - Symptoms have improved. - Notes: follow up with your psychiatrist as discussed for further evaluation. Signatures: Dispatcher [employer] Yamile Hui, RN RN aa5 Richard Veras MD MD mn Corrections: (The following items were deleted from the chart) 11:36 11:28 Valium 2 mg IVP once ordered. mn aa5 11:36 11:35 Valium 2 mg IVP once ordered. aa5 aa5 15:55 15:29 11/01/2017 15:29 Discharged to Home. Impression: Anxiety; Suicidal ideation. aa5 Condition is Stable. Forms are Medication Reconciliation Form, Thank You Letter, Antibiotic Education, Prescription Opioid Use. Follow up: Private Physician; Reason: Re-evaluation by your physician. Problem is an acute exacerbation. Symptoms have improved. wa
--- NOTE | 2017-11-01 15:30 | ER ---
Nurse's Notes [facility] Name: Soraya Crenshaw Age: 37 yrs Sex: Female : 1980 Arrival Date: 11/01/2017 Time: 10:08 Bed 8 Private MD: Diagnosis: Anxiety;Suicidal ideation Presentation: 11/01 10:08 Presenting complaint: Patient states: "I've been feeling short of breath since last aa5 night and I think it's my anxiety". Pt reports she ran out of Valium approximately 6 days ago. Pt also reports suicidal ideations for approximately 4 days. Pt denies homicidal ideations. 10:08 Transition of care: patient was not received from another setting of care. Onset of aa5 symptoms was October 2017. Risk Assessment: Do you want to hurt yourself or someone else? Patient reports desire/thoughts of hurting themselves or someone else. Provider notified. Initial Sepsis Screen: Does the patient meet any 2 criteria? No. Patient's initial sepsis screen is negative. Does the patient have a suspected source of infection? No. Patient's initial sepsis screen is negative. Care prior to arrival: None. 10:08 Method Of Arrival: EMS: [facility] aa5 10:08 Acuity: DARVIN 2 aa5 CHUMMER: 10:48 LMP 10/14/2017 aa5 Historical: - Allergies: 10:10 No Known Allergies; aa5 - Home Meds: 10:10 Cymbalta 30 mg oral cpDR once daily [Active]; aa5 - PMHx: 10:10 Anxiety; aa5 10:10 Depression; aa5 - PSHx: 10:10 None; aa5 - Immunization history:: Adult Immunizations up to date. - Social history:: Smoking status: Patient uses tobacco products, smokes one-half pack cigarettes per day, Patient/guardian denies using alcohol, street drugs. - Ebola Screening: : No symptoms or risks identified at this time. - Family history:: not pertinent. - Hospitalizations: : No recent hospitalization is reported. Screenin:18 Abuse screen: Denies threats or abuse. Nutritional screening: No deficits noted. aa5 Tuberculosis screening: No symptoms or risk factors identified. Fall Risk None identified. Assessment: 10:10 General: Appears comfortable, Behavior is calm, cooperative. Pain: Denies pain. Neuro: aa5 Level of Consciousness is awake, alert, obeys commands, Oriented to person, place, time, situation. Cardiovascular: Heart tones S1 S2 present Rhythm is regular. Respiratory: Reports shortness of breath since last night Airway is patent Respiratory effort is even, unlabored, Respiratory pattern is regular, symmetrical, Breath sounds are clear bilaterally. GI: No signs and/or symptoms were reported involving the gastrointestinal system. : No signs and/or symptoms were reported regarding the genitourinary system. EENT: No signs and/or symptoms were reported regarding the EENT system. Derm: Skin is pink, warm \\T\\ dry. Musculoskeletal: Range of motion: intact in all extremities. 11:10 Reassessment: Patient and/or family updated on plan of care and expected duration. Pain aa5 level reassessed. Patient is alert, oriented x 3, equal unlabored respirations, skin warm/dry/pink. Patient denies pain at this time. Pt sitting up in bed watching TV . 11:20 Reassessment: Pt c/o anxiety and request anxiety medication at this time, pt appears aa5 calm at this time. MD was notified of pt's request . 12:20 Reassessment: Patient and/or family updated on plan of care and expected duration. Pain aa5 level reassessed. Patient is alert, oriented x 3, equal unlabored respirations, skin warm/dry/pink. Patient denies pain at this time. Pt sitting up in bed, eating lunch, pt tolerating well . 12:20 General: Appears comfortable, Behavior is calm, cooperative. aa5 13:20 Reassessment: Patient and/or family updated on plan of care and expected duration. Pain aa5 level reassessed. Patient is alert, oriented x 3, equal unlabored respirations, skin warm/dry/pink. Patient denies pain at this time. . 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 aa5 14:43 Reassessment: Patient and/or family updated on plan of care and expected duration. Pain aa5 level reassessed. Patient is alert, oriented x 3, equal unlabored respirations, skin warm/dry/pink. Patient denies pain at this time. 15:50 Reassessment: Patient is alert, oriented x 3, equal unlabored respirations, skin aa5 warm/dry/pink. Patient denies pain at this time. Patient states feeling better. Psych: 10:20 Subjective: Patient's mood is sad, Hallucinations are denied Having thoughts of aa5 suicide. Plan for suicide is hanging. Objective: Patient is cooperative, Speech is normal, Affect is appropriate. Interventions: Removed personal items and placed in bag. Patient placed in hospital gown. Searched person for dangerous items. Suicide Risk Assessment: Sad Person Scale: Sex of patient: Female: Score 0 points. Age of patient: Score 0 point if patient falls outside of specified age parameters. Depression: Score 1 point if signs of depression are present. Previous Attempt: Score 0 point if patient has not previously attempted suicide. Substance Abuse: Score 0 point if patient does not abuse alcohol or drugs. Rational Thinking: Score 0 point if patient has rational thinking. Social Support: Score 1 point if social support is lacking and/or unavailable. Organized Plan: Score 1 point if patient had a plan in place. Chronic Sickness: Score 0 point if patient does not have a chronic illness, debilitating, or severe disorder. TOTAL POINTS: If total points are 3-4, proposed clinical action is close follow-up/consider hospitalization. Safety Checks: Personal items have been removed. Pt denies substance abuse. Commitment: Patient will be a voluntary commitment. Vital Signs: 10:10 BP 124 / 89; Pulse 62; Resp 18 S; Temp 98.0(O); Pulse Ox 98% on R/A; Weight 74.84 kg aa5 (R); Height 5 ft. 3 in. (160.02 cm) (R); Pain 0/10; 14:42 BP 113 / 81; Pulse 86; Resp 18 S; Temp 98.0(TE); Pulse Ox 98% on R/A; Pain 0/10; aa5 10:10 Body Mass Index 29.23 (74.84 kg, 160.02 cm) aa5 ED Course: 10:08 Patient arrived in ED. iw 10:08 Arm band placed on Patient placed in an exam room, on a stretcher. aa5 10:08 Patient has correct armband on for positive identification. Placed in gown. Bed in low aa5 position. Call light in reach. 10:09 Yamile Person, RN is Primary Nurse. aa5 10:10 Safety Checks: Personal items have been removed. The door is open or patient has been aa5 placed in a hallway bed/chair. Sitter present at this time. 10:13 Triage completed. aa5 10:15 Safety Checks: Personal items have been removed. The door is open or patient has been aa5 placed in a hallway bed/chair. Sitter present at this time. 10:23 Richard Vears MD is Attending Physician. az 10:30 Safety Checks: Other: Pt's belongings were given to security personnel. aa5 10:30 Safety Checks: Personal items have been removed. The door is open or patient has been aa5 placed in a hallway bed/chair. Sitter present at this time. 10:45 Safety Checks: Personal items have been removed. The door is open or patient has been aa5 placed in a hallway bed/chair. Sitter present at this time. 10:50 Initial lab(s) drawn, by ED staff, sent to lab. Inserted saline lock: 22 gauge in left aa5 antecubital area, using aseptic technique. Blood collected. IV inserted by LESTER Price. 11:00 Safety Checks: Personal items have been removed. The door is open or patient has been aa5 placed in a hallway bed/chair. Sitter present at this time. 11:15 Safety Checks: Personal items have been removed. The door is open or patient has been aa5 placed in a hallway bed/chair. Sitter present at this time. 11:30 Safety Checks: Personal items have been removed. The door is open or patient has been aa5 placed in a hallway bed/chair. Sitter present at this time. 11:45 Safety Checks: Personal items have been removed. The door is open or patient has been aa5 placed in a hallway bed/chair. Sitter present at this time. 12:00 Safety Checks: Personal items have been removed. The door is open or patient has been aa5 placed in a hallway bed/chair. Sitter present at this time. 12:15 Safety Checks: Personal items have been removed. The door is open or patient has been aa5 placed in a hallway bed/chair. Sitter present at this time. 12:21 Initial contact with Kasie from [facility] to request screening for pt. mb4 12:30 Safety Checks: Personal items have been removed. The door is open or patient has been aa5 placed in a hallway bed/chair. Sitter present at this time. 12:45 Safety Checks: Personal items have been removed. The door is open or patient has been aa5 placed in a hallway bed/chair. Sitter present at this time. 13:00 Safety Checks: Personal items have been removed. The door is open or patient has been aa5 placed in a hallway bed/chair. Sitter present at this time. 13:[address] [facility] arriving for pt screen. eta 45min. mb4 13:15 Safety Checks: Personal items have been removed. The door is open or patient has been aa5 placed in a hallway bed/chair. Sitter present at this time. 13:30 Safety Checks: Personal items have been removed. The door is open or patient has been aa5 placed in a hallway bed/chair. Sitter present at this time. 13:45 Safety Checks: Personal items have been removed. The door is open or patient has been aa5 placed in a hallway bed/chair. Sitter present at this time. 14:00 Safety Checks: Personal items have been removed. The door is open or patient has been aa5 placed in a hallway bed/chair. Sitter present at this time. 14:15 Safety Checks: Personal items have been removed. The door is open or patient has been aa5 placed in a hallway bed/chair. Sitter present at this time. 14:30 Safety Checks: Personal items have been removed. The door is open or patient has been aa5 placed in a hallway bed/chair. Sitter present at this time. 14:41 No provider procedures requiring assistance completed. aa5 14:45 Safety Checks: Personal items have been removed. The door is open or patient has been aa5 placed in a hallway bed/chair. Sitter present at this time. 15:00 Safety Checks: Personal items have been removed. The door is open or patient has been aa5 placed in a hallway bed/chair. Sitter present at this time. 15:15 Safety Checks: Personal items have been removed. The door is open or patient has been aa5 placed in a hallway bed/chair. Sitter present at this time. 15:30 Safety Checks: Personal items have been removed. The door is open or patient has been aa5 placed in a hallway bed/chair. Sitter present at this time. 15:50 IV discontinued, intact, bleeding controlled, No redness/swelling at site. Pressure aa5 dressing applied. Administered Medications: 11:36 CANCELLED (MD changed route ): Valium 2 mg IVP once aa5 11:37 Drug: Valium 2 mg Route: PO; aa5 12:03 Follow up: Response: No adverse reaction aa5 Outcome: 15:29 Discharge ordered by . ayla 15:54 Discharged to home ambulatory. aa5 15:54 Condition: stable 15:54 Discharge instructions given to patient, Instructed on discharge instructions, follow up and referral plans. medication usage, Demonstrated understanding of instructions, follow-up care, medications, Prescriptions given X 1. 15:54 Condition: Belongings were given back to patient. Pt agreed to calling crisis hotline aa5 if suicidal thoughts come back, pt currently denies suicidal ideations. Pt was instructed to follow-up with [facility], pt was given [facility] information by [facility] Candy Wrapping Machine Operator. 15:55 Patient left the ED. aa5 Signatures: Marian Ricci RN RN Yamile Person RN RN aa5 Richard Veras MD MD wa Baxter, Mackenzie mb4 Corrections: (The following items were deleted from the chart) 10:31 10:20 Suicide Risk Assessment: Sad Person Scale: Sex of patient: Female: Score 0 aa5 points. Age of patient: Score 0 point if patient falls outside of specified age parameters. Depression: Score 1 point if signs of depression are present. Previous Attempt: Score 0 point if patient has not previously attempted suicide. Substance Abuse: Score 0 point if patient does not abuse alcohol or drugs. Rational Thinking: Score 0 point if patient has rational thinking. Social Support: Organized Plan: Score 1 point if patient had a plan in place. Relationship: Chronic Sickness: Score 0 point if patient does not have a chronic illness, debilitating, or severe disorder. aa5 11:28 10:10 BP 124 / 89; Pulse 62bpm; Resp 18bpm; Spontaneous; Pulse Ox 98% RA; 74.84 kg aa5 Reported; Height 5 ft. 3 in. Reported; BMI: 29.2; Pain 0/10; aa5
--- NOTE | 2017-11-01 16:28 | EKG ---
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
== END 2017-11-01 15:55 | disposition home or self-care (01) ==
LOC: ER 10:02
DX: R45.851 Suicidal ideations (principal); F32.9 Major depressive disorder, single episode, unspecified; F17.210 Nicotine dependence, cigarettes, uncomplicated
CPT/HCPCS: 36415; 80048; 80307; 80320; 80329; 81003; 81025; 85025; 93005; 99285